=== PATIENT | female | born 1945 | race Caucasian/White ===

== ENCOUNTER → 2017-03-09 | Outpatient (CLI) | payer MEDICARE ==
--- NOTE | 2017-03-09 15:26 | US ---
EXAMINATION TYPE: US thyroid st tissue head/neck DATE OF EXAM: 03/09/2017 COMPARISON: NONE CLINICAL HISTORY: Hypothyroidism E03.9. long time thyroid rx ; recent MRI showed multinodular goiter GLAND SIZE: Right Lobe: 4.6 x 2.4 x 16.cm cm Overall Parenchyma: heterogenous Left Lobe: 4.5 x 2.4 x 1.9 cm Overall Parenchyma: heterogeneous Isthmus Thickness: 0.3 cm NODULES RIGHT: # of nodules measured on right: multinodular Largest nodule on right: 2.5 X 2.5 x 1.6 cm heterogeneous solid nodule at the lower pole. LEFT: # of nodules measured on left: multinodular Largest nodule on left: 2.1 X 1.6 x 1.8 cm complex cystic nodule at the lower pole. ISTHMUS: # of nodules measured in the isthmus: 0 Bilateral neck scanned, no evidence of lymphadenopathy. Thyroid gland is normal in size but markedly heterogeneous in appearance. There is dominant 2.[address]ic nodule with septations that is taller greater than wide the left thyroid lobe. There is poorly d efined 2.5 cm heterogeneous hyperechoic solid nodule in the right thyroid lobe. IMPRESSION: Heterogeneous thyroid with bilateral dominant nodules as noted above.
== END | disposition home or self-care (01) ==
LOC: RADUSWWP 14:49
PROVIDERS: ATTEND General Practice
DX: E04.2 Nontoxic multinodular goiter (principal); E03.9 Hypothyroidism, unspecified
CPT/HCPCS: 76536

== ENCOUNTER → 2017-03-15 | Outpatient (CLI) | payer MEDICARE ==
--- NOTE | 2017-03-15 22:31 | MR ---
EXAMINATION TYPE: MR brain wo con DATE OF EXAM: 03/15/2017 COMPARISON: NONE HISTORY: hyperreflexia and lt sided tremor per order. TECHNIQUE: Multiplanar, multisequence imaging of the brain and brainstem is performed without IV cont rast. FINDINGS: Diffusion weighted images demonstrate no evidence of a recent infarct or other diffusion abnormality. There is no worrisome extra-axial fluid collection. There is ventricular and sulcal prominence consis tent with diffuse cerebral atrophy. There are focal and confluent areas of T2 hyperintensity seen thr oughout the white matter bilaterally. Lesions are nonspecific in appearance and distribution but most likely on basis of product of chronic small vessel ischemic change in patient of this age. Midline structures demonstrate normal morphology. The craniocervical junction appears within normal limits. Normal vascular flow voids are present. Mild mucosal thickening involving ethmoid sinuses arlene aterally is present. Remainder paranasal sinuses are clear. Globes are intact bilaterally. IMPRESSION: Mild to moderate diffuse cerebral atrophy and moderate to severe chronic small vessel isc hemic change is present.
== END | disposition home or self-care (01) ==
LOC: RADMRIMAIN 12:25
PROVIDERS: ATTEND Psychiatry & Neurology Neurology
DX: I67.82 Cerebral ischemia (principal); G31.9 Degenerative disease of nervous system, unspecified
CPT/HCPCS: 70551

== ENCOUNTER → 2017-04-19 | Outpatient (CLI) | payer MEDICARE ==
--- NOTE | 2017-04-19 16:22 | US ---
EXAMINATION TYPE: US carotid duplex BILAT DATE OF EXAM: 04/19/2017 COMPARISON: NONE CLINICAL HISTORY: 71-year-old female I63.9 CVA. Multiple TIA's. TECHNIQUE: Carotid duplex ultrasound examination. Indirect Doppler criteria was utilized. FINDINGS: Ugalde scale images show no significant atherosclerotic change on either side. EXAM MEASUREMENTS: RIGHT: Peak Systolic Velocity (PSV) cm/sec ----- Right CCA: 88.3 ----- Right ICA: 91.7 ----- Right ECA: 126 ICA/CCA ratio: 1.0 RIGHT: End Diastole cm/sec ----- Right CCA: 17.7 ----- Right ICA: 16.3 ----- Right ECA: 18.9 LEFT: Peak Systolic Velocity (PSV) cm/sec ----- Left CCA: 88.2 ----- Left ICA: 86.4 ----- Left ECA: 84.0 ICA/CCA ratio: 0.9 LEFT: End Diastole cm/sec ----- Left CCA: 18.6 ----- Left ICA: 24.6 ----- Left ECA: 14.4 VERTEBRALS (direction of flow): Right Vertebral: Antegrade Left Vertebral: Antegrade IMPRESSION: No hemodynamically significant stenosis appreciated in either internal carotid artery. Criteria for Assigning % of Stenosis / Diameter reduction (Estimation based on the indirect measurements of the internal carotid artery velocities (ICA PSV). 1. Normal (no stenosis)=ICA PSV < 125 cm/s: ratio < 2.0: ICA EDV<40 cm/s. 2. Less than 50% stenosis=ICA PSV < 125 cm/s: ratio < 2.0: ICA EDV<40 cm/s. 3. 50 to 69% stenosis=ICA PSV of 125 to 230 cm/s: ration 2.0 ? 4.0: ICA EDV 40-100 cm/s. 4. Greater than 70% stenosis to near occlusion= ICA PSV > 230 cm/s: ratio > 4.0: ICA EDV > 100 cm/s. 5. Near occlusion= ICA PSV velocities may be low or undetectable: variable ratio and ICA EDV. 6. Total occlusion=unable to detect flow.
== END | disposition home or self-care (01) ==
LOC: RADUSWWP 15:01
PROVIDERS: ATTEND Psychiatry & Neurology Neurology
DX: I63.9 Cerebral infarction, unspecified (principal)
CPT/HCPCS: 93880

== ENCOUNTER → 2017-05-19 | Outpatient (CLI) | payer MEDICARE ==
[2017-05-23 07:34] LABS: Mis test requested (Blood) Phosphatidylsrin Abs
[2017-05-23 07:40] LABS: Mis test requested (Blood) Beta-1 Glycoprotein1
== END | disposition home or self-care (01) ==
LOC: LABWHC1 11:34
PROVIDERS: ATTEND Psychiatry & Neurology Neurology
DX: I63.9 Cerebral infarction, unspecified (principal)
CPT/HCPCS: 36415; 86146; 86148

== ENCOUNTER → 2017-10-05 | Outpatient (CLI) | payer MEDICARE ==
[2017-10-05 09:56] LABS: HCT 47.7 % (34.0-46.0); HGB 15.1 gm/dL (11.4-16.0); MCH 28.3 pg (25.0-35.0); MCHC 31.7 g/dL (31.0-37.0); MCV 89.5 fL (80.0-100.0); Mean Platelet Volume 6.8; Platelet Count 319 k/uL (150-450); RBC 5.33 m/uL (3.80-5.40); RDW 13.1 % (11.5-15.5); WBC 4.9 k/uL (3.8-10.6)
[2017-10-05 10:15] LABS: ALT 34 U/L (9-52); AST 24 U/L (14-36); Alkaline Phosphatase 69 U/L (38-126); Anion Gap 9 mmol/L; Blood Urea Nitrogen 16 mg/dL (7-17); Calcium 9.7 mg/dL (8.4-10.2); Carbon Dioxide 27 mmol/L (22-30); Chloride 106 mmol/L (98-107); Cholesterol 183 mg/dL (<200); Glucose 94 mg/dL (74-99); HDL Cholesterol 72 mg/dL (40-60); LDL Cholesterol,Calculated 95 mg/dL (0-99); Potassium 4.4 mmol/L (3.5-5.1); Sodium 142 mmol/L (137-145); Total Bilirubin 0.6 mg/dL (0.2-1.3); Total Protein 6.6 g/dL (6.3-8.2); Triglycerides 78 mg/dL (<150)
[2017-10-05 10:30] LABS: T4, Free (Free Thyroxine) 1.19 ng/dL (0.78-2.19)
== END | disposition home or self-care (01) ==
LOC: LABWHC1 09:24
PROVIDERS: ATTEND General Practice
DX: E03.9 Hypothyroidism, unspecified (principal); E78.5 Hyperlipidemia, unspecified; R52 Pain, unspecified
CPT/HCPCS: 36415; 80053; 80061; 84439; 84443; 85027

== ENCOUNTER → 2017-10-28 | Outpatient (CLI) | payer MEDICARE ==
--- NOTE | 2017-10-31 11:25 | MM ---
Reason for exam: screening (asymptomatic). Last mammogram was performed 1 year and 1 month ago. History: Patient is postmenopausal and is nulliparous. Family history of breast cancer in sister at age 62. Benign left mammotome panel of the left breast, November 24, 2007. Benign excisional biopsy of the right breast, 1977. Took hormonal contraceptives for 3 years. Took estrogen for 2 years beginning at age 49. Physical Findings: A clinical breast exam by your physician is recommended on an annual basis and results should be correlated with mammographic findings. MG 3D Screening Mammo W/Cad Bilateral CC and MLO view(s) were taken. Prior study comparison: September 21, 2016, bilateral MG diagnostic mammo w CAD PRADEEP. April 08, 2016, right breast MG 3d diag mammo w/cad RT. There are scattered fibroglandular densities. Stable benign calcifications. There is no discrete abnormality. No significant changes when compared with prior studies. ASSESSMENT: Benign, BI-RAD 2 RECOMMENDATION: Routine screening mammogram of both breasts in 1 year.
== END | disposition home or self-care (01) ==
LOC: RADMAMWWP 09:25
PROVIDERS: ATTEND General Practice
DX: Z12.31 Encounter for screening mammogram for malignant neoplasm of breast (principal)
CPT/HCPCS: 77063; 77067

== ENCOUNTER → 2018-04-05 | Outpatient (CLI) | payer MEDICARE ==
[2018-04-05 10:29] LABS: Carbon Dioxide 24 mmol/L (22-30); Chloride 107 mmol/L (98-107); Glucose 89 mg/dL (74-99); Potassium 4.8 mmol/L (3.5-5.1); Sodium 142 mmol/L (137-145)
[2018-04-05 10:30] LABS: ALT 33 U/L (9-52); AST 24 U/L (14-36); Albumin 4.1 g/dL (3.5-5.0); Alkaline Phosphatase 71 U/L (38-126); Anion Gap 11 mmol/L; Blood Urea Nitrogen 15 mg/dL (7-17); Calcium 9.3 mg/dL (8.4-10.2); Cholesterol 213 mg/dL (<200); HDL Cholesterol 77 mg/dL (40-60); LDL Cholesterol,Calculated 117 mg/dL (0-99); Total Bilirubin 0.4 mg/dL (0.2-1.3); Total Protein 6.6 g/dL (6.3-8.2); Triglycerides 95 mg/dL (<150)
== END | disposition home or self-care (01) ==
LOC: LABWHC1 09:46
PROVIDERS: ATTEND General Practice
DX: E78.5 Hyperlipidemia, unspecified (principal)
CPT/HCPCS: 36415; 80053; 80061

== ENCOUNTER → 2018-09-29 | Outpatient (CLI) | payer MEDICARE ==
[2018-09-29 13:19] LABS: HCT 46.6 % (34.0-46.0); HGB 15.3 gm/dL (11.4-16.0); MCH 29.1 pg (25.0-35.0); MCHC 32.9 g/dL (31.0-37.0); MCV 88.5 fL (80.0-100.0); Mean Platelet Volume 6.3; Platelet Count 345 k/uL (150-450); RBC 5.26 m/uL (3.80-5.40); RDW 12.6 % (11.5-15.5); WBC 7.2 k/uL (3.8-10.6)
[2018-09-29 18:58] LABS: T4, Free (Free Thyroxine) 1.5 ng/dL (0.80-1.80)
[2018-09-29 19:17] LABS: Albumin 4.3 g/dL (3.80-4.90); Albumin/Globulin Ratio 2.39 (1.20-2.10); Anion Gap 8.2 mmol/L (4.00-12.00); Calcium 9.1 mg/dL (8.7-10.3); Carbon Dioxide 27.8 mmol/L (21.6-31.8); Globulin 1.8 g/dL (1.6-3.3); Potassium 4.7 mmol/L (3.5-5.5); Total Bilirubin 0.4 mg/dL (0.3-1.2); Total Protein 6.1 g/dL (6.2-8.2)
== END | disposition home or self-care (01) ==
LOC: LABWHC1 12:31
PROVIDERS: ATTEND Family Medicine
DX: E03.9 Hypothyroidism, unspecified (principal); E78.5 Hyperlipidemia, unspecified; E55.9 Vitamin D deficiency, unspecified; M19.90 Unspecified osteoarthritis, unspecified site
CPT/HCPCS: 36415; 80053; 82306; 82550; 83735; 84439; 84443; 85027

== ENCOUNTER → 2018-09-29 | Outpatient (CLI) | payer MEDICARE ==
--- NOTE | 2018-09-29 12:38 | US ---
EXAMINATION TYPE: US thyroid st tissue head/neck DATE OF EXAM: 09/29/2018 COMPARISON: US03/09/2017 CLINICAL HISTORY: E04.2 Nontoxic multinodular goiter. GLAND SIZE: Right Lobe: 5.4 x 2.8 x 2.2 cm Overall Parenchyma: heterogenous Left Lobe: 5.5 x 2.6 x 2.2 cm Overall Parenchyma: heterogeneous Isthmus Thickness: 0.3 cm NODULES RIGHT: # of nodules measured on right: 1 1. 2.6 X 2.1 x 1.9 cm echogenic solid nodule at the mid pole with poorly defined margins; . This n odule is wider than tall and shows intranodular vascularity. Prior size: 2.5 x 2.5 x 1.6 cm LEFT: # of nodules measured on left: 1 1. 1.8 X 1.7 x 1.9 cm hypoechoic mixed nodule at the mid pole with well-defined margins; . This no dule is wider than tall and shows intranodular vascularity. Prior size: 2.1 x 1.6 x 1.8 cm ISTHMUS: # of nodules measured in the isthmus: 0 Diffusely heterogeneous thyroid gland bilaterally. Bilateral neck scanned, no evidence of lymphadeno dilcia. IMPRESSION: Diffuse glandular heterogeneity. Thyroid nodularity is noted nonspecific.
== END | disposition home or self-care (01) ==
LOC: RADUSWWP 12:09
PROVIDERS: ATTEND Internal Medicine Endocrinology, Diabetes & Metabolism
DX: E04.2 Nontoxic multinodular goiter (principal)
CPT/HCPCS: 76536

== ENCOUNTER → 2018-10-05 | Outpatient (CLI) | payer MEDICARE ==
[2018-10-05 16:40] LABS: LDL Cholesterol,Calculated 108.2 mg/dL (0.0-131.0); VLDL Calculation 15.8 mg/dL (5.00-40.00)
== END | disposition home or self-care (01) ==
LOC: LABWHC1 09:15
PROVIDERS: ATTEND Family Medicine
DX: E03.9 Hypothyroidism, unspecified (principal); E78.5 Hyperlipidemia, unspecified; E55.9 Vitamin D deficiency, unspecified; M12.9 Arthropathy, unspecified
CPT/HCPCS: 36415; 80061

== ENCOUNTER → 2018-11-24 | Outpatient (CLI) | payer MEDICARE ==
--- NOTE | 2018-11-27 11:29 | MM ---
Reason for exam: screening (asymptomatic). Last mammogram was performed 1 year and 1 month ago. History: Patient is postmenopausal and is nulliparous. Family history of breast cancer in sister at age 62. Benign left mammotome panel of the left breast, November 24, 2007. Benign excisional biopsy of the right breast, 1977. Took hormonal contraceptives for 3 years. Took estrogen for 2 years beginning at age 49. Physical Findings: A clinical breast exam by your physician is recommended on an annual basis and results should be correlated with mammographic findings. MG 3D Screening Mammo W/Cad Bilateral CC and MLO view(s) were taken. Prior study comparison: October 28, 2017, bilateral MG 3d screening mammo w/cad. September 21, 2016, bilateral MG diagnostic mammo w CAD PRADEEP. The breast tissue is heterogeneously dense. This may lower the sensitivity of mammography. Benign appearing bilateral calcifications. No suspicious abnormality. Left biopsy marker noted. No significant changes when compared with prior studies. ASSESSMENT: Benign, BI-RAD 2 RECOMMENDATION: Routine screening mammogram of both breasts in 1 year.
== END ==
LOC: RADMAMWWP 09:21
PROVIDERS: ATTEND General Practice
DX: Z12.31 Encounter for screening mammogram for malignant neoplasm of breast (principal)
CPT/HCPCS: 77063; 77067

== ENCOUNTER → 2019-01-05 | Outpatient (CLI) | payer MEDICARE ==
[2019-01-05 14:34] LABS: Basophils % (A) 0 %; Eosinophils # (A) 0.3 k/uL (0-0.7); Eosinophils % (A) 3 %; HCT 46.4 % (34.0-46.0); HGB 14.7 gm/dL (11.4-16.0); Lymphocytes # (A) 2.2 k/uL (1.0-4.8); Lymphocytes % (A) 20 %; MCH 28.3 pg (25.0-35.0); MCHC 31.7 g/dL (31.0-37.0); MCV 89.3 fL (80.0-100.0); Mean Platelet Volume 6.4; Monocytes # (A) 0.5 k/uL (0-1.0); Monocytes % (A) 4 %; Neutrophils # (A) 7.7 k/uL (1.3-7.7); Neutrophils % (A) 71 %; Platelet Count 334 k/uL (150-450); RDW 12.4 % (11.5-15.5); WBC 10.8 k/uL (3.8-10.6)
[2019-01-05 14:43] LABS: INR 0.9 (<1.2); Partial Thromboplastin Time 25.3 sec (22.0-30.0); Prothrombin Time 9.9 sec (9.0-12.0)
[2019-01-05 14:45] LABS: ALT 17 U/L (9-52); AST 24 U/L (14-36); Alkaline Phosphatase 77 U/L (38-126); Anion Gap 7 mmol/L; Blood Urea Nitrogen 18 mg/dL (7-17); Calcium 9.7 mg/dL (8.4-10.2); Carbon Dioxide 25 mmol/L (22-30); Chloride 107 mmol/L (98-107); Glucose 116 mg/dL (74-99); Potassium 4.3 mmol/L (3.5-5.1); Sodium 139 mmol/L (137-145); Total Bilirubin 0.3 mg/dL (0.2-1.3); Total Protein 6.7 g/dL (6.3-8.2)
== END | disposition home or self-care (01) ==
LOC: LABPAT 13:56
PROVIDERS: ATTEND Orthopaedic Surgery
DX: Z01.812 Encounter for preprocedural laboratory examination (principal)
CPT/HCPCS: 80053; 85025; 85610; 85730; 87070

== ENCOUNTER 2019-01-09 07:52 | Inpatient (IN) | payer MEDICARE ==
[~2019-01-09 07:52] MED LIST: ACETAMINOPHEN TAB 500 MG TAB PO ONE; DEXAMETHASONE SOD PHOSPHATE 10 MG/ML 1 ML VIAL IV ONE; HYDROmorphone 0.5 MG/0.5 ML SYRINGE IVP PRN; MELOXICAM 7.5 MG TAB PO ONE; MORPHINE SULFATE 4 MG/ML SYRINGE IV PRN; ONDANSETRON 4 MG/2 ML VIAL IVP ONE; ONDANSETRON 4 MG/2 ML VIAL IVP PRN; ROPIVACAINE 246.25 MG, EPINEPHrine 0.5 MG, KETOROLAC 30 MG, cloNIDine HCL/PF 80 MCG, WA... MISCELLANE ONE; TRANEXAMIC ACID 1,000 MG in SODIUM CHLORIDE 0.9% 100 ML IVPB ONE; ceFAZolin IN SWFI 2 GM/20 ML SYRINGE IVP ONE
[2019-01-09] MEDS ORDERED: LIDOCAINE 1% 20 ML VIAL (10MG/ML) FOR IV START INTRADERMA ONE (08:21)
[2019-01-09] MEDS: LACTATED RINGERS 1,000 ML IV SCH ×2 (08:23→21:26)
[2019-01-09] MEDS ORDERED: ACETAMINOPHEN IV (For NPO) 1,000 MG/100 ML VIAL IVPB ONE (08:25)
[2019-01-09] MEDS ORDERED: HYDROmorphone 0.5 MG/0.5 ML SYRINGE IVP PRN ×3 (09:08)
[2019-01-09] MEDS ORDERED: NALOXONE 0.4 MG/ML 1 ML VIAL IV PRN (09:08)
[2019-01-09] MEDS ORDERED: ONDANSETRON 4 MG/2 ML VIAL IVP PRN (09:08)
[2019-01-09] MEDS ORDERED: MAGNESIUM HYDROXIDE 2,400 MG/10 ML CUP PO PRN (09:08)
[2019-01-09] MEDS ORDERED: DIAZEPAM 5 MG TAB PO PRN (09:08)
[2019-01-09] MEDS ORDERED: hydrOXYzine PAMOATE 25 MG CAP PO PRN (09:08)
[2019-01-09] MEDS ORDERED: HYDROcodone/APAP 5-325MG 1 EACH TAB PO PRN ×2 (09:08)
[2019-01-09] MEDS ORDERED: TRANEXAMIC ACID 1,000 MG/10 ML VIAL ONE (09:38)
[2019-01-09] MEDS ORDERED: fentaNYL (PF) 50 MCG/ML 2 ML AMP ONE (09:38)
[2019-01-09] MEDS ORDERED: LACTATED RINGERS 1,000 ML BAG IV ONE (09:38)
[2019-01-09] MEDS ORDERED: HEPARIN SODIUM,PORCINE 10,000 UNIT/ML 1 ML VIAL ONE (09:38)
[2019-01-09] MEDS ORDERED: PHENYLEPHRINE-0.9% NACL SYG 1 MG/10 ML SYRINGE ONE (09:38)
[2019-01-09] MEDS ORDERED: MIDAZOLAM 2 MG/2 ML VIAL ONE (09:38)
[2019-01-09] MEDS ORDERED: SODIUM CHLORIDE 0.9% 100 ML BAG ONE (09:38)
[2019-01-09] MEDS ORDERED: ceFAZolin 3,000 MG in SODIUM CHLORIDE 0.9% IRRIGATIO 3,000 ML IRRIGATION ONE (09:43)
--- NOTE | 2019-01-09 11:09 | FL ---
EXAMINATION TYPE: FL guidance operating room DATE OF EXAM: 01/09/2019 HISTORY: Flouroscopy time 42 seconds of fluoroscopy provided. IMPRESSION: 1. Fluoroscopy time.
--- NOTE | 2019-01-09 11:09 | XR ---
EXAMINATION TYPE: XR Hip Limited RT DATE OF EXAM: 01/09/2019 COMPARISON: NONE HISTORY: Postop TECHNIQUE: One view submitted. FINDINGS: There is postsurgical change in near anatomic alignment. There is soft tissue edema and emphysema. IMPRESSION: 1. Postoperative change. Appears in near-anatomic alignment.
--- NOTE | 2019-01-09 11:15 | P.OP ---
Date of Procedure: 01/09/19 Preoperative Diagnosis: Severe osteoarthritis right hip Postoperative Diagnosis: Severe osteoarthritis right hip Procedure(s) Performed: Right total hip arthroplasty with a direct anterior approach Implants: [employer]ales [employer] nephew Polarstem size 3 standard [employer] R3, 3 hole acetabular shell, 48 mm [employer] reflection 6.5 mm cancellus screw, 20 mm 2 [employer] R3, XLPE 20 acetabular liner [employer]hew Oxinium femoral head 32 m, +4 All components were press-fit. The articulation is Oxinium on polyethylene. Anesthesia: spinal Surgeon: Tommy Cummings Commercial Loan Coordinator #1: Judy Melvin Estimated Blood Loss (ml): 150 (59 mL returned with Cell Saver) Pathology: other (Femoral head) Condition: stable Disposition: PACU Indications for Procedure: After failure of conservative treatment we discussed the surgical and nonsurgical treatment options at length. Patient wishes to proceed with a total hip arthroplasty with a direct anterior approach. Complications specific to this procedure were discussed at length, including but not limited to infection, leg length discrepancy, dislocation, and nerve injury. Patient is aware of all these complications and informed consent was obtained Operative Findings: The operative findings are consistent with severe osteoarthritis of the right hip Description of Procedure: Patient was seen and evaluated in the preoperative area, consent was reviewed, and the surgical site was marked with a skin marker. Patient was then brought to the operating room and given prophylactic antibiotics intravenously. 1 g of Tranexamic acid was also given. A spinal anesthetic was administered by the anesthesia department. The patient was then placed on the [place] table with the bony prominences well-padded. The hip area was then prepped and draped in usual sterile fashion. A universal timeout was then performed, which confirmed the patient's name, surgical site, ALLERGIES, and procedure being performed. Next the incision site was located at 1 cm distal and 1 cm lateral to the anterior superior iliac spine. The skin and subcutaneous tissues were sharply incised. Incision was carefully dissected down to the fascia overlying the tensor fascia franki muscle. This fascia was then incised in line with the incision. Next, using blunt finger dissection, the tensor fascia franki muscle was dissected off its investing fascia. The muscle was then carefully retracted laterally with a cobra retractor over the lateral neck of the femur. Next, the circumflex vessels were identified and cauterized using the AquaMantis device. The anterior hip capsule was then exposed. The capsule was then opened and an inverted T fashion. Cobra retractors were then placed intracapsularly. The proximal femur was then visualized. The femoral neck was then osteotomized appropriate level above the lesser trochanter. Small amount of traction was placed with the [place] table. A small wedge of bone was then removed from the remaining femoral head. Next, using a corkscrew femoral head was easily removed from the acetabulum. On gross visual inspection, the femoral head had complete loss of articular cartilage in mu ltiple periarticular osteophytes. Attention was then turned to the acetabulum. the acetabulum was exposed and any remaining labrum was excised. Sequential reaming of the acetabulum was performed using fluoroscopic guidance. When the appropriate size was reached, a trial was then placed. The position and fit of the trial was checked with fluoroscopy. The trial was then removed. Then, using fluoroscopic guidance, the final implant was impacted at 20 of anteversion and 40 of abduction, and fully seated in the acetabulum. 2 screws were then placed in the acetabulum. Again fluoroscopy was used to check position of the screws. Next, the liner was then impacted, with a 20 elevated liner located in the anterior superior quadrant. Component locking was confirmed. Attention was then directed to the femur. With the aid of the [place] table, the femur was externally rotated to approximately 130, extended, and abducted under the opposite leg. A side hook was then placed under the proximal femur, and the side hook elevator was used to elevate the proximal femur. Retractors were then placed. A capsular release was performed, as well as a release of the conjoined tendon, which afforded excellent visualization of the proximal femur. Next, a box osteotome was used to lateralize the proximal femur. A woodworking shop hand was then used to locate the femoral canal. Sequential broaching was then performed with appropriate size which afforded excellent fixation in the proximal femur. A trial was then placed with appropriate head and neck, and the hip was gently reduced with the aid of the [place] table. Fluoroscopy was then used to check position of the components, as well as to ensure equal leg lengths. The hip was then gently dislocated and the trials were then removed. Final implants were then impacted and the hip was again reduced. Final fluoroscopic x-rays confirmed that the components were in anatomic position, as well as equal leg lengths. The hip was also taken through range of motion, and found to be stable. The hip was then copiously irrigated with antibiotic solution with pulsatile lavage. The hip was then irrigated with Irrisept solution. The soft tissues were then injected with a ropivacaine solution, which consisted of 246.25 mg of ropivacaine, 0.5 mg of epinephrine, 30 mg of Toradol, 80 g of clonidine, and 48.45 mL of sterile water, for a total of 100 mL of fluid injected. A second dose of 1 g of Tranexamic acid was also given. the fascia was then closed with 2-0 strata fix suture. The subcutaneous tissue was closed with 3-0 Vicryl. The subcuticular tissue was closed with 3-0 strata fix suture. The skin was then closed with Dermabond glue and a sterile silver dressing. The patient was then transferred to the recovery room in stable co ndition. The assistant professor of education KAITLIN Billings was required due to the complexity of surgery, and the need for skilled surgical corsetier for positioning, draping, exposure, retraction, and closure of the wound.
[2019-01-09] MEDS ORDERED: LACTATED RINGERS 1,000 ML IV ONE ×2 (11:45)
[2019-01-09 13:03] VITALS: BMI 32.9
[2019-01-09] MEDS: CARBIDOPA-LEVODOPA 25-100 MG 1 EACH TAB PO SCH ×3 (13:21→21:26)
--- NOTE | 2019-01-09 14:00 | P.CONS ---
History of Present Illness - Reason for Consult Consult date: 01/09/19 Medical management - History of Present Illness This is a 73-year-old female patient of Dr. Michael Moreau with past medical history of hyperlipidemia, generalized osteoarthritis, hypothyroidism, Parkinson's. Patient has been brought into the hospital under the care of Dr. Cummings status post right total hip arthroplasty with direct anterior approach. The patient has had a regular diet for lunch. She denies any nausea or vomiting. No chest pain or shortness of breath. Vital signs are stable, no lightheadedness or dizziness. Patient did not require Whiteside catheter placement. Patient is anticipating discharge home tomorrow. Review of Systems All systems: negative Constitutional: Reports night sweats, Denies anorexia, Denies chills, Denies fatigue, Denies fever, Denies poor appetite, Denies weight loss Eyes: denies blurred vision, denies pain Ears, nose, mouth and throat: Denies dysphagia, Denies headache, Denies nasal congestion, Denies nasal discharge, Denies sore throat, Denies vertigo Cardiovascular: Denies chest pain, Denies decreased exercise tolerance, Denies dyspnea on exertion, Denies leg edema, Denies palpitations, Denies shortness of breath, Denies syncope Respiratory: Denies cough Gastrointestinal: Denies abdominal pain, Denies diarrhea, Denies loss of appetite, Denies nausea, Denies vomiting Genitourinary: Denies dysuria, Denies hematuria Musculoskeletal: Denies frequent falls, Denies gait dysfunction, Denies myalgias Integumentary: Reports wounds, Denies pruritus, Denies rash Neurological: Denies aphasia, Denies convulsions, Denies numbness, Denies seizures, Denies vertigo, Denies weakness Psychiatric: Denies anxiety, Denies depression Endocrine: Denies fatigue, Denies weight change Past Medical History Past Medical History: Hyperlipidemia, Neurologic Disorder, Osteoarthritis (OA), Thyroid Disorder Additional Past Medical History / Comment(s): Parkinson's disease-left hand tremor History of Any Multi-Drug Resistant Organisms: None Reported Past Surgical History: Joint Replacement, Orthopedic Surgery, Tubal Ligation Additional Past Surgical History / Comment(s): left hip replaced, right total hip arthroplasty anterior approach 01/09/2019, deviated septum repaired, right CTS Past Anesthesia/Blood Transfusion Reactions: No Reported Reaction Past Psychological History: No Psychological Hx Reported Smoking Status: Former smoker Past Alcohol Use History: None Reported Additional Past Alcohol Use History / Comment(s): quit smoking 1974, smoked 10- 15 years <ppd Past Drug Use History: None Reported Additional Drug Use History / Comment(s): The patient was a smoker for only about 10-15 years less than a pack per day and quit in 1974. She denies any marijuana, street drug or alcohol use. She lives at home with her . - Past Family History Sister(s) Family Medical History: Cancer Additional Family Medical History / Comment(s): Sister. is alive at age 84 and is a survivor of breast cancer. Mother Family Medical History: Cancer, Deep Vein Thrombosis (DVT), Pulmonary Embolus Additional Family Medical History / Comment(s): Mother at age 82 from uterine cancer with metastatic disease to the lungs. Brother(s) Additional Family Medical History / Comment(s): Patient has one brother age 80 with fibromyalgia, osteoarthritis and macular degeneration. Patient does not have any children. Medications and Allergies Home Medications Medication Instructions Recorded Confirmed Type Carbidopa-Levodopa 25-100 mg 1 each PO 1000 01/04/19 01/09/19 History [Sinemet 25-100] Carbidopa/Levodopa [Sinemet 25-100 0.5 tab PO 1600,2200 01/04/19 01/09/19 History mg] Cholecalciferol [Vitamin D3] 1,000 unit PO DAILY 01/04/19 01/09/19 History Levothyroxine Sodium [Synthroid] 50 mcg PO DAILY 01/04/19 01/09/19 History Rasagiline Mesylate [Azilect] 1 mg PO 2200 01/04/19 01/09/19 History Rosuvastatin Calcium [Crestor] 5 mg PO DAILY 01/04/19 01/09/19 History Allergies Allergy/AdvReac Type Severity Reaction Status Date / Time cheese Allergy Abdominal Verified 01/09/19 12:36 Pain Physical Exam Vitals: Vital Signs Temp Pulse Pulse Resp BP Pulse Ox 01/09/19 12:00 79 16 124/60 96 01/09/19 11:45 77 16 129/59 97 01/09/19 11:31 72 12 119/57 96 01/09/19 11:26 97 F L 75 12 128/62 96 01/09/19 08:13 97.6 F 72 16 157/72 96 Intake and Output 01/08/19 01/09/19 01/09/19 22:59 06:59 14:59 Intake Total 1101 Output Total 150 Balance 951 Intake: IV 1101 Output: Estimated Blood Loss 150 Gen: This is a 73-year-old female. She is found resting in bed and appears to be comfortable and in no acute distress. is at bedside. HEENT: Head is atraumatic, normocephalic. Pupils equal, round. Sclerae is anicteric. NECK: Supple. No JVD. No lymphadenopathy. No thyromegaly. LUNGS: Clear to auscultation. No wheezes or rhonchi. No intercostal retractions. HEART: Regular rate and rhythm. No murmur. ABDOMEN: Soft. Bowel sounds are present. No masses. No tenderness. EXTREMITIES: No pedal edema. No calf tenderness. Small dressing in place to the right anterior hip with no breakthrough bleeding or drainage. NEUROLOGICAL: Patient is awake, alert and oriented x3. Cranial nerves 2 through 12 are grossly intact. Assessment and Plan Plan: 1. Osteoarthritis status post right total hip arthroplasty anterior approach. Continue current pain management, PT and OT per orthopedics. Continue aspirin 325 mg twice daily for DVT prophylaxis. Incentive cytometry treated with incidence of atelectasis and hospital acquired pneumonia. 2. Parkinson's. Patient will be resumed on her home dose of Sinemet and Azilect from home. 3. Hypothyroidism. Continue levothyroxine 50 mg daily. 4. GI prophylaxis. Pepcid. Discharge plan: Most likely home tomorrow with home care Impression and plan of care have been directed as dictated by the signing physician. Althea Dumont nurse practitioner acting as scribe for signing physician.
[2019-01-09] MEDS: ceFAZolin IN SWFI 2 GM/20 ML SYRINGE IVP SCH (18:02)
[2019-01-09] MEDS ORDERED: SENNOSIDES-DOCUSATE SODIUM 1 EACH TAB PO SCH (21:00)
[2019-01-09] MEDS: SODIUM CHLORIDE 0.9% 1,000 ML IV SCH (21:25)
[2019-01-09] MEDS: ASPIRIN 325 MG TAB PO SCH (21:26)
[2019-01-10] MEDS: SODIUM CHLORIDE 0.9% 1,000 ML IV SCH (01:36)
[2019-01-10] MEDS: ceFAZolin IN SWFI 2 GM/20 ML SYRINGE IVP SCH (01:38)
[2019-01-10] MEDS ORDERED: LEVOTHYROXINE 50 MCG TAB PO SCH (06:30)
[2019-01-10] MEDS: ASPIRIN 325 MG TAB PO SCH (07:17)
[2019-01-10] MEDS ORDERED: traMADol 50 MG TAB PO PRN ×2 (07:24)
[2019-01-10 07:28] VITALS: BP 130/80; PULSE 81; RESP 16; TEMP 97.9
[2019-01-10 07:37] LABS: Basophils % (A) 0 %; Eosinophils # (A) 0.1 k/uL (0-0.7); Eosinophils % (A) 1 %; HCT 38.7 % (34.0-46.0); HGB 12.3 gm/dL (11.4-16.0); Lymphocytes % (A) 21 %; MCH 28.3 pg (25.0-35.0); MCHC 31.8 g/dL (31.0-37.0); MCV 88.9 fL (80.0-100.0); Mean Platelet Volume 6.5; Monocytes # (A) 0.6 k/uL (0-1.0); Monocytes % (A) 7 %; Neutrophils # (A) 6.6 k/uL (1.3-7.7); Neutrophils % (A) 69 %; Platelet Count 316 k/uL (150-450); RBC 4.35 m/uL (3.80-5.40); RDW 12.6 % (11.5-15.5); WBC 9.6 k/uL (3.8-10.6)
--- NOTE | 2019-01-10 08:51 | P.DS ---
Providers Date of admission: 01/09/19 07:52 Expected date of discharge: 01/10/19 Attending physician: Tommy Cummings Consults: 01/09/19 12:44 Consult Physician Routine Consulting Provider: Smith Lemus Consult Reason/Comments: medical management Do you want consulting provider notified?: Yes Primary care physician: Lucas Moreau - Discharge Diagnosis(es) (1) Osteoarthritis of right hip Current Visit: Yes Status: Acute (2) S/P total hip arthroplasty Current Visit: Yes Status: Acute (3) Hyperlipidemia Current Visit: Yes Status: Acute (4) Hypothyroidism Current Visit: Yes Status: Acute (5) Parkinsonism Current Visit: Yes Status: Acute (6) Vitamin D deficiency Current Visit: Yes Status: Acute Hospital Course: This is a 73-year-old female with known history of degenerative arthritis of the right hip. The patient presents for evaluation. After discussion and consideration patient elects to proceed with total hip arthroplasty. The patient is seen preoperatively by Dr. Cummings and medically cleared for surgery by their primary care physician. Patient is admitted to [facility] on 01/09/2019 for total hip arthroplasty. The procedures performed without complication or sequelae. The patient is doing well postoperatively. Labs and vital signs are stable on day of discharge. On day of discharge patient's hip incision is healing well. There is minimal erythema. There is no drainage noted at this time. There is minimal soft tissue swelling to the hip and thigh. Patient has full foot and ankle motion without difficulty or pain. Calf is soft and nontender to palpation. Neurovascular status to the right lower extremity is intact. Patient is discharged home in good condition. Opioid start talking form is reviewed and signed at patient bedside. Please see med rec for accurate list of home medications. Plan - Discharge Summary Discharge Rx Participant: No New Discharge Prescriptions: New Aspirin 325 mg PO BID #60 tab Sennosides [Senokot] 1 tab PO BID #60 tablet traMADol HCl [Ultram] 1 - 2 tab PO Q6H PRN #56 tab PRN Reason: Pain No Action Levothyroxine Sodium [Synthroid] 50 mcg PO DAILY Cholecalciferol [Vitamin D3] 1,000 unit PO DAILY Carbidopa/Levodopa [Sinemet 25-100 mg] 0.5 tab PO 1600,2200 Carbidopa-Levodopa 25-100 mg [Sinemet 25-100] 1 each PO 1000 Rosuvastatin Calcium [Crestor] 5 mg PO DAILY Rasagiline Mesylate [Azilect] 1 mg PO 2200 Discharge Medication List Carbidopa-Levodopa 25-100 mg [Sinemet 25-100] 1 each PO 1000 01/04/19 [History] Carbidopa/Levodopa [Sinemet 25-100 mg] 0.5 tab PO 1600,2200 01/04/19 [History] Cholecalciferol [Vitamin D3] 1,000 unit PO DAILY 01/04/19 [History] Levothyroxine Sodium [Synthroid] 50 mcg PO DAILY 01/04/19 [History] Rasagiline Mesylate [Azilect] 1 mg PO 2200 01/04/19 [History] Rosuvastatin Calcium [Crestor] 5 mg PO DAILY 01/04/19 [History] Aspirin 325 mg PO BID #60 tab 01/10/19 [Rx] Sennosides [Senokot] 1 tab PO BID #60 tablet 01/10/19 [Rx] traMADol HCl [Ultram] 1 - 2 tab PO Q6H PRN #56 tab 01/10/19 [Rx] Follow up Appointment(s)/Referral(s): Tommy Cummings DO [Doctor of Osteopathic Medicine] - 2 Weeks Activity/Diet/Wound Care/Special Instructions: Weightbearing as tolerated with walker. Leave dressing intact. Dressing may be removed by home care nurse or by patient in 10 days. May shower with dressing on. Please follow-up with [facility] in 2 weeks and call with any questions or concerns, . Discharge Disposition: HOME WITH HOME HEALTH SERVICES
[2019-01-10] MEDS ORDERED: ATORVASTATIN 10 MG TAB PO SCH (09:00)
[2019-01-10] MEDS ORDERED: FAMOTIDINE 20 MG TAB PO SCH (09:00)
[2019-01-10] MEDS ORDERED: MELOXICAM 7.5 MG TAB PO SCH (09:00)
[2019-01-10] MEDS: CARBIDOPA-LEVODOPA 25-100 MG 1 EACH TAB PO SCH (09:17)
[2019-01-10] MEDS ORDERED: CARBIDOPA-LEVODOPA 25-100 MG 1 EACH TAB PO SCH (10:00)
--- NOTE | 2019-01-10 12:13 | P.PN ---
Subjective Progress Note Date: 01/10/19 This is a 73-year-old female patient of Dr. Michael Moreau with past medical history of hyperlipidemia, generalized osteoarthritis, hypothyroidism, Parkinson's. Patient has been brought into the hospital under the care of Dr. Cummings status post right total hip arthroplasty with direct anterior approach. The patient has had a regular diet for lunch. She denies any nausea or vomiting. No chest pain or shortness of breath. Vital signs are stable, no lightheadedness or dizziness. Patient did not require Whiteside catheter placement. Patient is anticipating discharge home tomorrow. 01/10: Patient states that she was unable to get any sleep last night. Pain is currently controlled. She denies having a bowel movement but is passing gas and urinating without difficulty. Patient is scheduled for discharge home today. She has been afebrile, blood pressure 130/80, heart rate 80s, pulse ox 99% on room air. WBC 9.6 and hemoglobin 12.3. Medication reconciliation is been reviewed. Review of Systems Constitutional: Reports night sweats, Denies anorexia, Denies chills, Denies fatigue, Denies fever, Denies poor appetite, Denies weight loss Eyes: denies blurred vision, denies pain Ears, nose, mouth and throat: Denies dysphagia, Denies headache, Denies nasal congestion, Denies nasal discharge, Denies sore throat, Denies vertigo Cardiovascular: Denies chest pain, Denies decreased exercise tolerance, Denies dyspnea on exertion, Denies leg edema, Denies palpitations, Denies shortness of breath, Denies syncope Respiratory: Denies cough Gastrointestinal: Denies abdominal pain, Denies diarrhea, Denies loss of appetite, Denies nausea, Denies vomiting Genitourinary: Denies dysuria, Denies hematuria Musculoskeletal: Denies frequent falls, Denies gait dysfunction, Denies myalgias Integumentary: Reports wounds, Denies pruritus, Denies rash Neurological: Denies aphasia, Denies convulsions, Denies numbness, Denies seizur es, Denies vertigo, Denies weakness Psychiatric: Denies anxiety, Denies depression Endocrine: Denies fatigue, Denies weight change Objective - Vital Signs Vital signs: Vital Signs Temp 97.9 F 01/10/19 07:00 Pulse 81 01/10/19 07:00 Resp 16 01/10/19 07:00 BP 130/80 01/10/19 07:00 Pulse Ox 99 01/10/19 07:00 Intake & Output 01/09/19 01/10/19 01/10/19 18:59 06:59 18:59 Intake Total 1101 Output Total 150 Balance 951 Intake: IV 1101 Output: Estimated Blood Loss 150 Other: Voiding Method Toilet # Voids 1 1 - Exam Gen: This is a 73-year-old female. She is found resting in a recliner and appears to be comfortable and in no acute distress. is at bedside. HEENT: Head is atraumatic, normocephalic. Pupils equal, round. Sclerae is anicteric. NECK: Supple. No JVD. No lymphadenopathy. No thyromegaly. LUNGS: Clear to auscultation. No wheezes or rhonchi. No intercostal retractions. HEART: Regular rate and rhythm. No murmur. ABDOMEN: Soft. Bowel sounds are present. No masses. No tenderness. EXTREMITIES: No pedal edema. No calf tenderness. Small dressing in place to the right anterior hip with no breakthrough bleeding or drainage. NEUROLOGICAL: Patient is awake, alert and oriented x3. Cranial nerves 2 through 12 are grossly intact. - Labs CBC & Chem 7: 01/10/19 07:19 Assessment and Plan Plan: 1. Osteoarthritis status post right total hip arthroplasty anterior approach. Continue current pain management, PT and OT per orthopedics. Continue aspirin 325 mg twice daily for DVT prophylaxis. Incentive spirometry treated with incidence of atelectasis and hospital acquired pneumonia. 2. Parkinson's. Patient will be resumed on her home dose of Sinemet and Azilect from home. 3. Hypothyroidism. Continue levothyroxine 50 mg daily. 4. GI prophylaxis. Pepcid. Discharge plan: home today with [facility] Impression and plan of care have been directed as dictated by the signing physician. Althea Dumont nurse practitioner acting as scribe for signing physician.
== END 2019-01-10 11:44 | disposition home health service (06) | DRG 470 ==
LOC: 2ORMAIN 07:52 → 4SSUR 11:34
PROVIDERS: ADMIT Orthopaedic Surgery; ATTEND Orthopaedic Surgery
PROC: 0SR906A Replacement of Right Hip Joint with Oxidized Zirconium on Polyethylene Synthetic Substitute, Uncemented, Open Approach (ICD-10-PCS; principal; 2019-01-09 09:20)
DX: M16.11 Unilateral primary osteoarthritis, right hip (principal); G20 Parkinson's disease; E78.5 Hyperlipidemia, unspecified; E03.9 Hypothyroidism, unspecified; E55.9 Vitamin D deficiency, unspecified; Z79.890 Hormone replacement therapy; Z79.899 Other long term (current) drug therapy; Z96.642 Presence of left artificial hip joint; Z87.891 Personal history of nicotine dependence; Z91.011 Allergy to milk products; Z80.3 Family history of malignant neoplasm of breast; Z80.49 Family history of malignant neoplasm of other genital organs; Z82.49 Family history of ischemic heart disease and other diseases of the circulatory system
CPT/HCPCS: 36415; 73501; 85025; 86850; 86891; 86900; 86901; 88300

== ENCOUNTER → 2019-03-22 | Outpatient (CLI) | payer MEDICARE ==
--- NOTE | 2019-03-22 10:07 | BD ---
EXAMINATION TYPE: Axial Bone Density DATE OF EXAM: 03/22/2019 COMPARISON: 08.01.2013 CLINICAL HISTORY: 73 YR OLD FEMALE....ICD-10 CODE: Z78.0 POST MENOPAUSAL Height: 63 Weight: 184 FRAX RISK QUESTIONS: NOTHING TO NOTE HERE RISK FACTORS HISTORY OF: Surgery to Spine BOTH HIPS ARE THRs When: 2018 Postmenopausal woman: YES AT 49 YRS OLD Take estrogen and/or progesterone medications: IN THE PAST FOR COUPLE YRS Lost more than 2 inches in height since high school: YES MEDICATIONS: Thyroid Medications: YES, SYNTHROID, FOR ABOUT 50 YRS Additional Medications: CLONOPIN PRN, CRESTOR, VIT D DAILY Additional History: CHOLESTEROL, EXAM MEASUREMENTS: Bone mineral densitometry was performed using the [employer] System. Bone mineral density as measured about the Lumbar spine is: ----- L1-L4(G/cm2): 1.161 T Score Values are as follows: ----- L1: 0.1 ----- L2: -1.1 ----- L3: -0.7 ----- L4: 0.9 ----- L1-L4: -0.2 Bone mineral density has: Increased 2.8% since study of: 08.01.2013 BILAT THR's....HIPS NOT SCANNED.... Bone mineral density about the L Wrist (g/cm2): 0.452 T Score values are as follows: -----Dist. R+U: -2.1 -----Prox. R+U: -1.7 -----Radius total: -2.9 Bone mineral density FIRST WRIST SCAN FOR PATIENT IMPRESSION: Osteoporosis (T Score less than -2.5) with respect to the left wrist. There is increased fracture risk and therapy is usually indicated based on age. Re-Screen 1-2 years. NOTE: T-SCORE=SD OF THE YOUNG ADULT MEAN.
[2019-03-22 10:11] LABS: Albumin 4.1 g/dL (3.5-5.0); Calcium 9.5 mg/dL (8.4-10.2); Potassium 4.5 mmol/L (3.5-5.1); Total Bilirubin 0.4 mg/dL (0.2-1.3); Total Protein 6.7 g/dL (6.3-8.2)
== END | disposition home or self-care (01) ==
LOC: RADBDWWP 09:03
PROVIDERS: ATTEND General Practice
DX: M81.0 Age-related osteoporosis without current pathological fracture (principal); G20 Parkinson's disease; E78.5 Hyperlipidemia, unspecified
CPT/HCPCS: 77080; 80053; 80061

== ENCOUNTER → 2019-06-29 | Outpatient (CLI) | payer MEDICARE ==
[2019-06-29 17:45] LABS: T4, Free (Free Thyroxine) 1.1 ng/dL (0.80-1.80)
== END | disposition home or self-care (01) ==
LOC: LABWHC1 10:03
PROVIDERS: ATTEND Internal Medicine Endocrinology, Diabetes & Metabolism
DX: E04.2 Nontoxic multinodular goiter (principal)
CPT/HCPCS: 36415; 84439; 84443

== ENCOUNTER → 2019-10-02 | Outpatient (CLI) | payer MEDICARE ==
[2019-10-02 12:07] LABS: HCT 47.1 % (34.0-46.0); HGB 15.4 gm/dL (11.4-16.0); MCH 29.2 pg (25.0-35.0); MCHC 32.6 g/dL (31.0-37.0); MCV 89.7 fL (80.0-100.0); Mean Platelet Volume 7.1; Platelet Count 365 k/uL (150-450); RBC 5.25 m/uL (3.80-5.40); RDW 12.3 % (11.5-15.5); WBC 7.7 k/uL (3.8-10.6)
[2019-10-02 12:18] LABS: ALT 6 U/L (4-34); AST 26 U/L (14-36); African American GFR (CKD) >90 (>60 ml/min/1.73 sqM); Albumin 4.4 g/dL (3.5-5.0); Alkaline Phosphatase 72 U/L (38-126); Anion Gap 8 mmol/L; Blood Urea Nitrogen 18 mg/dL (7-17); Calcium 9.9 mg/dL (8.4-10.2); Carbon Dioxide 27 mmol/L (22-30); Chloride 107 mmol/L (98-107); Glucose 99 mg/dL (74-99); Non-African American GFR(CKD) 86 (>60 ml/min/1.73 sqM); Potassium 4.6 mmol/L (3.5-5.1); Sodium 142 mmol/L (137-145); Total Bilirubin 0.5 mg/dL (0.2-1.3); Total Protein 7.2 g/dL (6.3-8.2)
--- NOTE | 2019-10-02 15:22 | US ---
EXAMINATION TYPE: US thyroid st tissue head/neck DATE OF EXAM: 10/02/2019 COMPARISON: 09/29/2018 CLINICAL HISTORY: E04.2 Goiter, R22.1 Swelling/Mass/Lump. f/u, previous bx's of lesions GLAND SIZE: Right Lobe: 3.7 x 1.7 x 2.4 cm Overall Parenchyma: heterogenous Left Lobe: 4.1 x 1.9 x 3.0 cm Overall Parenchyma: heterogeneous Isthmus Thickness: 0.6 cm NODULES RIGHT: # of nodules measured on right: 1, measured largest lesion 1. 1.3 X 1.0 x 1.3 cm isoechoic solid nodule at the mid pole with well-defined margins. This nodul e is wider than tall and shows no intranodular vascularity. Prior size: 2.6 x 21. x 1.9 cm LEFT: # of nodules measured on left: 1 1. 1.5 X 1.7 x 1.8 cm mixed nodule at the mid pole with well-defined margins. This nodule is wider than tall and shows no intranodular vascularity. Prior size: 1.8 x 1.7 x 1.9 cm ISTHMUS: # of nodules measured in the isthmus: 0 Bilateral neck scanned, no evidence of lymphadenopathy. IMPRESSION: No interval growth of the bilateral thyroid nodules, currently measuring smaller than on the prior exams.
--- NOTE | 2019-10-02 17:41 | CT ---
EXAMINATION TYPE: CT soft tissue neck w con DATE OF EXAM: 10/02/2019 COMPARISON: None HISTORY: Swelling to neck-bilaterally CT DLP: 607 mGycm CONTRAST: Patient injected with 100 mL of Isovue 300. TECHNIQUE: Axial images at 3 mm thick sections. Reconstructed images in the coronal plane and sagitt al plane are reviewed. FINDINGS: Limited CT sections are obtained the lung apices. The lung apices appear clear. CT neck: The torus tubarius and fossa of Rosenmuller are normal. Shrimp Cleaner spaces are normal. Para nasal sinuses and mastoid air cells are clear. Parotid glands appear normal and symmetrical. Submandibular glands, are normal. Parapharyngeal spac es are normal. No suspicious adenopathy is evident. The hypopharynx appears within normal limits. Vocal cord level appear symmetrical. Thyroid is heterogenous. Nodule appears to be on the posterior left lobe thyroid. Degenerative disc changes are through the cervical spine. IMPRESSIONS: 1. No suspicious abnormality to account for neck swelling.
== END | disposition home or self-care (01) ==
LOC: RADUSWWP 10:59
PROVIDERS: ATTEND Internal Medicine Endocrinology, Diabetes & Metabolism
DX: E04.2 Nontoxic multinodular goiter (principal); R22.1 Localized swelling, mass and lump, neck
CPT/HCPCS: 80053; 84443; 85027; 76536; 70491; 36415; Q9967

== ENCOUNTER → 2019-10-11 | Outpatient (CLI) | payer MEDICARE ==
[2019-10-11 20:19] LABS: ALT <8 U/L (8-44); AST 18 U/L (13-35); African American GFR (CKD) 83.6 (60.0-200.0); Albumin/Globulin Ratio 2.39 (1.60-3.17); Alkaline Phosphatase 73 U/L (41-126); Carbon Dioxide 26.4 mmol/L (21.6-31.8); Chloride 108 mmol/L (96-109); Globulin 1.8 g/dL (1.6-3.3); Glucose 97 mg/dL (70-110); Non-African American GFR(CKD) 72.1 (60.0-200.0); Potassium 4.6 mmol/L (3.5-5.5); Sodium 142 mmol/L (135-145); Total Bilirubin 0.4 mg/dL (0.2-1.2); Total Protein 6.1 g/dL (6.2-8.2)
== END | disposition home or self-care (01) ==
LOC: LABWHC1 12:48
PROVIDERS: ATTEND Internal Medicine Endocrinology, Diabetes & Metabolism
DX: M81.6 Localized osteoporosis [Lequesne] (principal)
CPT/HCPCS: 36415; 80053; 82306; 83970

== ENCOUNTER → 2020-03-10 | Outpatient (CLI) | payer MEDICARE ==
--- NOTE | 2020-03-11 11:57 | MM ---
Reason for exam: screening (asymptomatic). Last mammogram was performed 1 year and 3 months ago. History: Patient is postmenopausal and is nulliparous. Family history of breast cancer in sister at age 62. Benign left mammotome panel of the left breast, November 24, 2007. Benign excisional biopsy of the right breast, 1977. Took hormonal contraceptives for 3 years. Took estrogen for 2 years beginning at age 49. Physical Findings: A clinical breast exam by your physician is recommended on an annual basis and results should be correlated with mammographic findings. MG 3D Screening Mammo W/Cad Bilateral CC and MLO view(s) were taken. Prior study comparison: November 24, 2018, bilateral MG 3d screening mammo w/cad. October 28, 2017, bilateral MG 3d screening mammo w/cad. The breast tissue is heterogeneously dense. This may lower the sensitivity of mammography. Stable benign calcifications. There is chronic nodularity bilaterally. No significant changes when compared with prior studies. ASSESSMENT: Benign, BI-RAD 2 RECOMMENDATION: Routine screening mammogram of both breasts in 1 year.
== END | disposition home or self-care (01) ==
LOC: RADMAMWWP 09:20
PROVIDERS: ATTEND General Practice
DX: Z12.31 Encounter for screening mammogram for malignant neoplasm of breast (principal)
CPT/HCPCS: 77063; 77067

== ENCOUNTER → 2020-09-10 | Outpatient (CLI) | payer MEDICARE ==
[2020-09-10 10:36] LABS: HCT 47.5 % (34.0-46.0); HGB 15.9 gm/dL (11.4-16.0); MCHC 33.4 g/dL (31.0-37.0); MCV 89.9 fL (80.0-100.0); Mean Platelet Volume 6.8; Platelet Count 317 k/uL (150-450); RBC 5.29 m/uL (3.80-5.40); RDW 12.4 % (11.5-15.5); WBC 6.1 k/uL (3.8-10.6)
[2020-09-10 17:20] LABS: ALT <8 U/L (8-44); AST 17 U/L (13-35); Albumin/Globulin Ratio 2.15 (1.60-3.17); Alkaline Phosphatase 73 U/L (41-126); BUN/Creat Ratio 18.75 Ratio (12.00-20.00); Calcium 9.1 mg/dL (8.7-10.3); Carbon Dioxide 25.5 mmol/L (21.6-31.8); Chloride 108 mmol/L (96-109); Chol/HDL Ratio 2.92; Cholesterol 216 mg/dL (0-200); Glucose 97 mg/dL (70-110); Non-African American GFR(CKD) 71.6 (60.0-200.0); Potassium 4.4 mmol/L (3.5-5.5); Sodium 143 mmol/L (135-145); Total Bilirubin 0.5 mg/dL (0.2-1.2); Total Protein 6.3 g/dL (6.2-8.2)
== END | disposition home or self-care (01) ==
LOC: LABWHC1 09:48
PROVIDERS: ATTEND General Practice
DX: E03.9 Hypothyroidism, unspecified (principal); E78.5 Hyperlipidemia, unspecified; G20 Parkinson's disease
CPT/HCPCS: 36415; 80053; 80061; 84443; 85027

== ENCOUNTER → 2020-10-15 | Outpatient (CLI) | payer MEDICARE ==
[2020-10-15 22:51] LABS: Albumin 4.2 g/dL (3.80-4.90); Albumin/Globulin Ratio 2.1 (1.60-3.17); BUN/Creat Ratio 21.25 Ratio (12.00-20.00); Calcium 9.3 mg/dL (8.7-10.3); Non-African American GFR(CKD) 71.6 (60.0-200.0); Potassium 4.3 mmol/L (3.5-5.5); Total Bilirubin 0.3 mg/dL (0.2-1.2); Total Protein 6.2 g/dL (6.2-8.2)
[2020-10-15 22:58] LABS: T4, Free (Free Thyroxine) 1.2 ng/dL (0.80-1.80)
== END | disposition home or self-care (01) ==
LOC: LABWHC1 13:26
PROVIDERS: ATTEND Internal Medicine Endocrinology, Diabetes & Metabolism
DX: E04.2 Nontoxic multinodular goiter (principal); M81.6 Localized osteoporosis [Lequesne]
CPT/HCPCS: 36415; 80053; 82306; 83970; 84439; 84443

== ENCOUNTER → 2021-01-13 | Outpatient (CLI) | payer MEDICARE ==
[2021-01-14 19:21] LABS: Albumin 4.5 g/dL (3.80-4.90); Albumin/Globulin Ratio 2.25 (1.60-3.17); Anion Gap 14.9 mmol/L (4.00-12.00); BUN/Creat Ratio 22.5 Ratio (12.00-20.00); Calcium 9.6 mg/dL (8.7-10.3); Carbon Dioxide 19.1 mmol/L (21.6-31.8); Non-African American GFR(CKD) 71.6 (60.0-200.0); Potassium 4.4 mmol/L (3.5-5.5); Total Bilirubin 0.4 mg/dL (0.3-1.2); Total Protein 6.5 g/dL (6.2-8.2)
== END ==
LOC: LABWHC1 12:47
PROVIDERS: ATTEND Internal Medicine Endocrinology, Diabetes & Metabolism
DX: E21.0 Primary hyperparathyroidism (principal)
CPT/HCPCS: 36415; 80053; 83970

== ENCOUNTER → 2021-03-18 | Outpatient (CLI) | payer MEDICARE ==
--- NOTE | 2021-03-19 10:11 | MM ---
Reason for exam: screening (asymptomatic). Last mammogram was performed 1 year ago. History: Patient is postmenopausal and is nulliparous. Family history of breast cancer in sister at age 62. Benign left mammotome panel of the left breast, November 24, 2007. Benign excisional biopsy of the right breast, 1977. Took hormonal contraceptives for 3 years. Took estrogen for 2 years beginning at age 49. Physical Findings: A clinical breast exam by your physician is recommended on an annual basis and results should be correlated with mammographic findings. MG 3D Screening Mammo W/Cad Bilateral CC and MLO view(s) were taken. Prior study comparison: March 10, 2020, bilateral MG 3d screening mammo w/cad. November 24, 2018, bilateral MG 3d screening mammo w/cad. There are scattered fibroglandular densities. Left biopsy clip. ASSESSMENT: Benign, BI-RAD 2 RECOMMENDATION: Routine screening mammogram of both breasts in 1 year.
== END | disposition home or self-care (01) ==
LOC: RADMAMWWP 11:05
PROVIDERS: ATTEND General Practice
DX: Z12.31 Encounter for screening mammogram for malignant neoplasm of breast (principal)
CPT/HCPCS: 77063; 77067

== ENCOUNTER → 2021-06-04 | Outpatient (CLI) | payer MEDICARE ==
[2021-06-04 19:16] LABS: HCT 45.9 % (37.2-46.3); HGB 14.8 g/dL (12.0-15.0); MCHC 32.2 g/dL (32.0-37.0); MCV 92.9 fL (80.0-97.0); Mean Platelet Volume 9.7 fL (9.5-12.2); Platelet Count 312 X 10*3/uL (140-440); RBC 4.94 X 10*6/uL (4.10-5.20); RDW 12.1 % (11.5-14.5)
[2021-06-04 21:29] LABS: Hemoglobin A1C 5.7 % (4.0-6.0)
[2021-06-05 01:51] LABS: Chol/HDL Ratio 2.96; LDL Cholesterol,Calculated 107.8 mg/dL (0.0-131.0); VLDL Calculation 23.2 mg/dL (5.00-40.00)
[2021-06-05 01:52] LABS: Albumin 4.4 g/dL (3.80-4.90); Anion Gap 11.8 mmol/L (4.00-12.00); BUN/Creat Ratio 17.5 Ratio (12.00-20.00); Calcium 9.1 mg/dL (8.7-10.3); Carbon Dioxide 24.2 mmol/L (21.6-31.8); Globulin 2.2 g/dL (1.6-3.3); Non-African American GFR(CKD) 71.6 (60.0-200.0); Potassium 4.2 mmol/L (3.5-5.5); Total Bilirubin 0.5 mg/dL (0.3-1.2); Total Protein 6.6 g/dL (6.2-8.2)
== END | disposition home or self-care (01) ==
LOC: LABWHC1 09:29
PROVIDERS: ATTEND Internal Medicine Endocrinology, Diabetes & Metabolism
DX: E21.0 Primary hyperparathyroidism (principal); G20 Parkinson's disease; E03.9 Hypothyroidism, unspecified; R53.83 Other fatigue; E78.5 Hyperlipidemia, unspecified
CPT/HCPCS: 36415; 80053; 80061; 82306; 83036; 83970; 84443; 85027

== ENCOUNTER → 2021-09-02 | Outpatient (CLI) | payer MEDICARE ==
[2021-09-02 20:36] LABS: African American GFR (CKD) 88.7 (60.0-200.0); Albumin 4.3 g/dL (3.8-4.9); Albumin/Globulin Ratio 1.85 (1.60-3.17); Anion Gap 9.3 mmol/L (10.00-18.00); BUN/Creat Ratio 21.91 Ratio (12.00-20.00); Blood Urea Nitrogen 16.5 mg/dL (9.0-27.0); Calcium 9.7 mg/dL (8.7-10.3); Carbon Dioxide 27.8 mmol/L (20.0-27.5); Globulin 2.3 g/dL (1.6-3.3); Non-African American GFR(CKD) 76.5 (60.0-200.0); Potassium 4.7 mmol/L (3.5-5.5); T4, Free (Free Thyroxine) 1.38 ng/dL (0.800-1.800); Total Bilirubin 0.3 mg/dL (0.30-1.20); Total Protein 6.7 g/dL (6.2-8.2)
== END | disposition home or self-care (01) ==
LOC: LABWHC1 12:46
PROVIDERS: ATTEND Internal Medicine Endocrinology, Diabetes & Metabolism
DX: E04.2 Nontoxic multinodular goiter (principal); E21.1 Secondary hyperparathyroidism, not elsewhere classified
CPT/HCPCS: 36415; 80053; 82306; 83970; 84439; 84443

== ENCOUNTER → 2021-09-09 | Outpatient (CLI) | payer MEDICARE ==
[2021-09-09 16:12] LABS: T4, Free (Free Thyroxine) 1.38 ng/dL (0.800-1.800)
== END | disposition home or self-care (01) ==
LOC: LABWHC1 10:41
PROVIDERS: ATTEND Ophthalmology
DX: G70.00 Myasthenia gravis without (acute) exacerbation (principal)
CPT/HCPCS: 36415; 83519; 84439; 84443; 85652

== ENCOUNTER → 2021-11-10 | Outpatient (CLI) | payer MEDICARE ==
--- NOTE | 2021-11-10 12:37 | MR ---
EXAMINATION TYPE: MR brain wo con DATE OF EXAM: 11/10/2021 COMPARISON: Prior MRI brain March 15, 2017 HISTORY: Parkinson's, unsteady gait, hx of stroke. TECHNIQUE: Multiplanar, multisequence imaging of the brain and brainstem is performed without IV cont rast. FINDINGS: Diffusion weighted images demonstrate no evidence of a recent infarct or other diffusion abnormality. There is no worrisome extra-axial fluid collection. There is mild ventricular and sulcal prominence c onsistent with diffuse cerebral atrophy. There are focal and confluent areas of T2 hyperintensity see n throughout the white matter bilaterally. Lesions are nonspecific in appearance and distribution but most likely on basis of product of chronic small vessel ischemic change in patient of this age. Midline structures demonstrate normal morphology. The craniocervical junction appears within normal limits. Normal vascular flow voids are present. Mild mucosal thickening involving ethmoid sinuses arlene aterally is redemonstrated. Remainder paranasal sinuses are clear. Globes are intact bilaterally. IMPRESSION: Mild diffuse age-related cerebral atrophy and moderate to severe chronic small vessel isc hemic change redemonstrated. No significant change or progression from 2017 MRI.
== END | disposition home or self-care (01) ==
LOC: RADMRIMAIN 11:47
PROVIDERS: ATTEND Psychiatry & Neurology Neurology
DX: G31.9 Degenerative disease of nervous system, unspecified (principal); Z86.73 Personal history of transient ischemic attack (TIA), and cerebral infarction without residual deficits
CPT/HCPCS: 70551

== ENCOUNTER → 2021-12-03 | Outpatient (CLI) | payer MEDICARE ==
--- NOTE | 2021-12-03 17:01 | ECHOF ---
Referral Reason:Z86.73 History of stroke MEASUREMENTS -------- HEIGHT: 160.0 cm WEIGHT: 84.8 kg BP: 135/68 RVIDd: 2.5 cm (< 3.3) IVSd: 1.3 cm (0.6 - 1.1) LVIDd: 3.8 cm (3.9 - 5.3) LVPWd: 1.1 cm (0.6 - 1.1) IVSs: 1.4 cm LVIDs: 2.6 cm LVPWs: 1.7 cm LA Diam: 3.0 cm (2.7 - 3.8) Ao Diam: 2.9 cm (2.0 - 3.7) AV Cusp: 1.9 cm (1.5 - 2.6) MV EXCURSION: 16.638 mm (> 18.000) MV EF SLOPE: 30 mm/s (70 - 150) EPSS: 0.4 cm MV E Marcelino: 0.58 m/s MV DecT: 232 ms MV A Marcelino: 0.68 m/s MV E/A Ratio: 0.85 RAP: 5.00 mmHg RVSP: 27.81 mmHg FINDINGS -------- Sinus rhythm. This was a technically adequate study. The left ventricular size is normal. There is mild concentric left ventricular hypertrophy. Overa ll left ventricular systolic function is normal with, an EF between 55 - 60 %. The right ventricle is normal in size. Normal LA size by volume 22+/-6 ml/m2. The right atrium is normal in size. Interatrial and interventricular septum intact. Aortic valve is trileaflet and is mildly thickened. The mitral valve is normal. Mild tricuspid regurgitation present. Right ventricular systolic pressure is normal at < 35 mmHg. The pulmonic valve is normal. The aortic root size is normal. Normal inferior vena cava with normal inspiratory collapse consistent with estimated right atrial pre ssure of 5 mmHg. Echo free space may represent effusion or a pericardial fat pad. CONCLUSIONS -------- 1. The left ventricular size is normal. 2. There is mild concentric left ventricular hypertrophy. 3. Overall left ventricular systolic function is normal with, an EF between 55 - 60 %. 4. Interatrial and interventricular septum intact. 5. Aortic valve is trileaflet and is mildly thickened. 6. Mild tricuspid regurgitation present. 7. Echo free space may represent effusion or a pericardial fat pad. LAB COORDINATOR: Angeline Sharif RDCS
== END | disposition home or self-care (01) ==
LOC: RADECHMAIN 13:52
PROVIDERS: ATTEND Psychiatry & Neurology Neurology
DX: I51.7 Cardiomegaly (principal); Q89.9 Congenital malformation, unspecified
CPT/HCPCS: 93306

== ENCOUNTER → 2022-02-01 | Outpatient (CLI) | payer MEDICARE ==
--- NOTE | 2022-02-01 14:33 | US ---
EXAMINATION TYPE: US carotid duplex BILAT DATE OF EXAM: 02/01/2022 COMPARISON: Prior carotid ultrasound 2017 CLINICAL HISTORY: Z86.73 History of stroke. No HTN. Patient said she doesn't know if she has had a s troke but is showing signs. EXAM MEASUREMENTS: RIGHT: Peak Systolic Velocity (PSV) cm/sec ----- Right CCA: 65.6 ----- Right ICA: 69.5 ----- Right ECA: 114.0 ICA/CCA ratio: 1.1 RIGHT: End Diastole cm/sec ----- Right CCA: 7.8 ----- Right ICA: 5.2 ----- Right ECA: 4.9 LEFT: Peak Systolic Velocity (PSV) cm/sec ----- Left CCA: 58.1 ----- Left ICA: 80.2 ----- Left ECA: 74.0 ICA/CCA ratio: 1.4 LEFT: End Diastole cm/sec ----- Left CCA: 10.3 ----- Left ICA: 21.6 ----- Left ECA: 7.2 VERTEBRALS (direction of flow): Right Vertebral: Antegrade Left Vertebral: Antegrade Rhythm: Normal Small amount of plaque in right bulb. No elevated velocities, wall thickening or stenosis. Grayscale images show mild peripheral hyperechoic plaque in right carotid bulb similar to prior. IMPRESSION: No hemodynamically significant stenosis in either internal carotid artery. No signific ant change from prior. Criteria for Assigning % of Stenosis / Diameter reduction (Estimation based on the indirect measurements of the internal carotid artery velocities (ICA PSV). 1. Normal (no stenosis)=ICA PSV < 125 cm/s: ratio < 2.0: ICA EDV<40 cm/s. 2. Less than 50% stenosis=ICA PSV < 125 cm/s: ratio < 2.0: ICA EDV<40 cm/s. 3. 50 to 69% stenosis=ICA PSV of 125 to 230 cm/s: ration 2.0 ? 4.0: ICA EDV 40-100 cm/s. 4. Greater than 70% stenosis to near occlusion= ICA PSV > 230 cm/s: ratio > 4.0: ICA EDV > 100 cm/s. 5. Near occlusion= ICA PSV velocities may be low or undetectable: variable ratio and ICA EDV. 6. Total occlusion=unable to detect flow.
== END | disposition home or self-care (01) ==
LOC: RADUSWWP 12:34
PROVIDERS: ATTEND Psychiatry & Neurology Neurology
DX: Z86.73 Personal history of transient ischemic attack (TIA), and cerebral infarction without residual deficits (principal)
CPT/HCPCS: 93880

== ENCOUNTER → 2022-03-30 | Outpatient (CLI) | payer MEDICARE | END | disposition home or self-care (01) | LOC: LABWHC1 16:17 | PROVIDERS: ATTEND Family Medicine | DX: Z53.9 Procedure and treatment not carried out, unspecified reason (principal) ==

== ENCOUNTER → 2022-04-07 | Outpatient (CLI) | payer MEDICARE ==
[2022-04-07 17:09] LABS: ALT <5 U/L (8-44); AST 19 U/L (13-35); African American GFR (CKD) 101.9 (60.0-200.0); Albumin 4.2 g/dL (3.8-4.9); Albumin/Globulin Ratio 1.56 (1.60-3.17); Alkaline Phosphatase 65 U/L (41-126); Blood Urea Nitrogen 14.4 mg/dL (9.0-27.0); Calcium 9.5 mg/dL (8.7-10.3); Carbon Dioxide 25.6 mmol/L (20.0-27.5); Chloride 107 mmol/L (96-109); Globulin 2.7 g/dL (1.6-3.3); Glucose 96 mg/dL (70-110); Non-African American GFR(CKD) 87.9 (60.0-200.0); Potassium 3.8 mmol/L (3.5-5.5); Sodium 143 mmol/L (135-145); Total Protein 6.9 g/dL (6.2-8.2); VLDL Calculation 13.26 mg/dL (5.00-40.00)
[2022-04-07 17:23] LABS: HCT 44.8 % (37.2-46.3); MCH 28.6 pg (27.0-32.0); MCHC 31.3 g/dL (32.0-37.0); MCV 91.4 fL (80.0-97.0); Mean Platelet Volume 9.8 fL (9.5-12.2); NRBC Per 100 WBC 0 /100 WBCS (0.0-0.0); Platelet Count 315 X 10*3/uL (140-440); RDW 12.1 % (11.5-14.5); WBC 5.64 X 10*3/uL (4.50-10.00)
== END | disposition home or self-care (01) ==
LOC: LABWHC1 09:23
PROVIDERS: ATTEND Family Medicine
DX: I10 Essential (primary) hypertension (principal); E55.9 Vitamin D deficiency, unspecified; E03.9 Hypothyroidism, unspecified
CPT/HCPCS: 36415; 80053; 80061; 83036; 84443; 85027

== ENCOUNTER 2022-06-23 08:00 | Emergency (ER) | payer MEDICARE ==
--- NOTE | 2022-06-23 08:07 | ED ---
Extremity Problem HPI - General Stated complaint: fall - neck & back pain Source: EMS - History of Present Illness Initial comments: Patient seen and evaluated by my KAITLIN Sanders - Related Data Home Medications Medication Instructions Recorded Confirmed Carbidopa/Levodopa [Sinemet 25-100 1 tab PO QID 01/04/19 06/23/22 mg] Levothyroxine Sodium [Synthroid] 50 mcg PO DAILY 01/04/19 06/23/22 Rosuvastatin Calcium [Crestor] 5 mg PO MOWEFR@2100 01/04/19 06/23/22 Cholecalciferol [Vitamin D3 (25 75 mcg PO BID-W/MEALS 06/23/22 06/23/22 Mcg = 1000 Iu)] clonazePAM 0.5 - 1 mg PO BID PRN 06/23/22 06/23/22 Allergies Allergy/AdvReac Type Severity Reaction Status Date / Time cheese Allergy Abdominal Verified 06/23/22 11:03 Pain Review of Systems ROS Statement: Those systems with pertinent positive or pertinent negative responses have been documented in the HPI. ROS Other: All systems not noted in ROS Statement are negative. Past Medical History Past Medical History: Hyperlipidemia, Neurologic Disorder, Osteoarthritis (OA), Thyroid Disorder Additional Past Medical History / Comment(s): Parkinson's disease-left hand tremor History of Any Multi-Drug Resistant Organisms: None Reported Past Surgical History: Joint Replacement, Orthopedic Surgery, Tubal Ligation Additional Past Surgical History / Comment(s): left hip replaced, right total hip arthroplasty anterior approach 01/09/2019, deviated septum repaired, right CTS Past Anesthesia/Blood Transfusion Reactions: No Reported Reaction Past Psychological History: No Psychological Hx Reported Past Alcohol Use History: None Reported Additional Past Alcohol Use History / Comment(s): quit smoking 1974, smoked 10- 15 years <ppd Past Drug Use History: None Reported Additional Drug Use History / Comment(s): The patient was a smoker for only about 10-15 years less than a pack per day and quit in 1974. She denies any marijuana, street drug or alcohol use. She lives at home with her . - Past Family History Sister(s) Family Medical History: Cancer Additional Family Medical History / Comment(s): Sister. is alive at age 84 and is a survivor of breast cancer. Mother Family Medical History: Cancer, Deep Vein Thrombosis (DVT), Pulmonary Embolus Additional Family Medical History / Comment(s): Mother at age 82 from uterine cancer with metastatic disease to the lungs. Brother(s) Additional Family Medical History / Comment(s): Patient has one brother age 80 with fibromyalgia, osteoarthritis and macular degeneration. Patient does not have any children. General Exam - General Exam Comments Initial Comments: This is a well-developed well-nourished awake alert oriented 4 female. Remainder the evaluation by Tommy Neck exam: Present: meningismus GI/Abdominal exam: Absent: distended, tenderness, guarding, rebound, rigid Extremities exam: Absent: tenderness, pedal edema, joint swelling, calf tenderness Skin exam: Absent: rash Course Vital Signs 06/23/22 06/23/22 08:17 13:50 Temperature 98.2 F 98 F Pulse Rate 75 72 Respiratory 18 18 Rate Blood Pressure 129/71 125/68 O2 Sat by Pulse 98 98 Oximetry Disposition Clinical Impression: Fall, Neck pain, Contusion of right knee Disposition: HOME SELF-CARE Condition: Stable Instructions (If sedation given, give patient instructions): Acute Neck Pain (ED) Additional Instructions: Please return to the Emergency Department if symptoms worsen or any other concerns. Is patient prescribed a controlled substance at d/c from ED?: No Referrals: Santi Hightower DO [Doctor of Osteopathic Medicine] - 1-2 days Adry Faith MD [REFERRING] - 1-2 days Decision Date: 06/23/22
[2022-06-23 08:20] VITALS: RESP 18
--- NOTE | 2022-06-23 08:25 | ED ---
Fall HPI - General Chief Complaint: Fall Stated Complaint: fall - neck & back pain Time Seen by Provider: 06/23/22 08:00 Source: patient, EMS Mode of arrival: EMS Limitations: no limitations - History of Present Illness Initial Comments: This a 76-year-old female presents emergency Department with chief complaint of fall. Patient states she is trip and fall at home she has complaint of some mild head neck pain and right knee pain. Patient denies any loss conscious. Denies any Blood thinners. Patient is able to ambulate. Patient denies any blurred vision no focal weakness or chest. Patient denies any other associated complaints. - Related Data Home Medications Medication Instructions Recorded Confirmed Carbidopa/Levodopa [Sinemet 25-100 1 tab PO QID 01/04/19 06/23/22 mg] Levothyroxine Sodium [Synthroid] 50 mcg PO DAILY 01/04/19 06/23/22 Rosuvastatin Calcium [Crestor] 5 mg PO MOWEFR@2100 01/04/19 06/23/22 Cholecalciferol [Vitamin D3 (25 75 mcg PO BID-W/MEALS 06/23/22 06/23/22 Mcg = 1000 Iu)] clonazePAM 0.5 - 1 mg PO BID PRN 06/23/22 06/23/22 Allergies Allergy/AdvReac Type Severity Reaction Status Date / Time cheese Allergy Abdominal Verified 06/23/22 11:03 Pain Review of Systems ROS Statement: Those systems with pertinent positive or pertinent negative responses have been documented in the HPI. ROS Other: All systems not noted in ROS Statement are negative. Past Medical History Past Medical History: Hyperlipidemia, Neurologic Disorder, Osteoarthritis (OA), Thyroid Disorder Additional Past Medical History / Comment(s): Parkinson's disease-left hand tremor History of Any Multi-Drug Resistant Organisms: None Reported Past Surgical History: Joint Replacement, Orthopedic Surgery, Tubal Ligation Additional Past Surgical History / Comment(s): left hip replaced, right total hip arthroplasty anterior approach 01/09/2019, deviated septum repaired, right CTS, eye surgery Past Anesthesia/Blood Transfusion Reactions: No Reported Reaction Past Psychological History: No Psychological Hx Reported Smoking Status: Never smoker Past Alcohol Use History: None Reported Past Drug Use History: None Reported - Past Family History Sister(s) Family Medical History: Cancer Additional Family Medical History / Comment(s): Sister. is alive at age 84 and is a survivor of breast cancer. Mother Family Medical History: Cancer, Deep Vein Thrombosis (DVT), Pulmonary Embolus Additional Family Medical History / Comment(s): Mother at age 82 from uterine cancer with metastatic disease to the lungs. Brother(s) Additional Family Medical History / Comment(s): Patient has one brother age 80 with fibromyalgia, osteoarthritis and macular degeneration. Patient does not have any children. General Exam Limitations: no limitations General appearance: alert Head exam: Present: atraumatic, normocephalic, normal inspection Eye exam: Present: normal appearance, PERRL, EOMI. Absent: scleral icterus, conjunctival injection, periorbital swelling ENT exam: Present: normal exam, mucous membranes moist Neck exam: Present: normal inspection. Absent: tenderness, meningismus, lymphadenopathy Respiratory exam: Present: normal lung sounds bilaterally. Absent: respiratory distress, wheezes, rales, rhonchi, stridor Cardiovascular Exam: Present: regular rate, normal rhythm, normal heart sounds. Absent: systolic murmur, diastolic murmur, rubs, gallop, clicks Extremities exam: Present: other (Mild right knee pain for range of motion neurovascular intact remaining extremity exam within normal limits) Back exam: Present: full ROM. Absent: tenderness, paraspinal tenderness, vertebral tenderness Neurological exam: Present: alert, oriented X3, CN II-XII intact, reflexes normal. Absent: motor sensory deficit Skin exam: Present: warm, dry, intact, normal color. Absent: rash Course Vital Signs 06/23/22 08:17 Temperature 98.2 F Pulse Rate 75 Respiratory 18 Rate Blood Pressure 129/71 O2 Sat by Pulse 98 Oximetry Medical Decision Making - Medical Decision Making 76-year-old female presented for a fall. CT was obtained initially some possibility of C3 fracture. This was reviewed by orthopedics and which they fel t that was concerning for fracture patient was placed in hard collar. Patient did have MRI performed which did not identify any C3 fracture does show bulging disc. I did update orthopedics in which they recommend patient be discharged with soft collar follow-up next week with Dr. Hightower. Disposition Clinical Impression: Fall, Neck pain, Contusion of right knee Disposition: HOME SELF-CARE Condition: Stable Instructions (If sedation given, give patient instructions): Acute Neck Pain (ED) Additional Instructions: Please return to the Emergency Department if symptoms worsen or any other concerns. Is patient prescribed a controlled substance at d/c from ED?: No Referrals: Adry Faith MD [REFERRING] - 1-2 days Santi Hightower DO [Doctor of Osteopathic Medicine] - 1-2 days Time of Disposition: 13:21
--- NOTE | 2022-06-23 08:39 | XR ---
EXAMINATION TYPE: XR knee complete RT DATE OF EXAM: 06/23/2022 CLINICAL HISTORY: Pain. TECHNIQUE: Three views of the right knee are obtained. COMPARISON: None. FINDINGS: There is no acute fracture/dislocation evident in right knee. Moderate to severe narrowing patellofemoral compartment with mild to moderate spurring. Mild to moderate narrowing and mild spurr ing medial tibial femoral compartment. Overlying soft tissue is unremarkable. IMPRESSION: As above.
--- NOTE | 2022-06-23 09:24 | CT ---
EXAMINATION TYPE: CT brain cspine wo con DATE OF EXAM: 06/23/2022 COMPARISON: None HISTORY: Fall. Neck and back pain. CT DLP: 1437 mGycm, Automated exposure control for dose reduction was used. CONTRAST: Patient injected with 0 mL of Isovue 300. CT of the brain is performed utilizing 3 mm thick sections through the posterior fossa and 3 mm thick sections through the remaining calvarium. Study is performed within 24 hours of arrival to the hospital. No abnormal hyperdensity is present to suggest an acute intracranial hemorrhage. No mass lesion is evident. No acute infarcts are evident. Patchy periventricular white matter hypodensity is present, likely on the basis of chronic white matter ischemic changes. Ventricles and sulci are appropriate for the patient age. Paranasal sinuses and mastoid air cells within the [id number] are clear. IMPRESSIONS: 1. Patchy periventricular chronic appearing white matter ischemic changes. CT cervical spine. COMPARISON: None CT of the cervical spine is performed in the axial plane at 2 mm thick sections. Reconstructed image s in the coronal, and sagittal plane are reviewed on the computer. There is a lucency crossing the right C3 lamina may be a transverse fracture. Series 301 image 35. An additional ring fracture however is not identified. Facet changes are present on the left at C3-4 an d to a lesser degree C4-5. Some mild uncovertebral joint hypertrophy is present C4-5 bilaterally and on the right at C5-6. There is some side bending towards the left through the cervical spine. Disc space narrowing is present C5-6 and C6-C7 Vertebral body heights are preserved. No spinal canal stenosis is evident. Mild foraminal narrowing is present on the left at C2-3 moderate on the left at C3-4 and mild left C4 -5 and mild on the right at C5-6. IMPRESSIONS: 1. There is a lucency within the right C3 lamina region. This may be artifact as a second reading fra cture is not identified. This appears nondisplaced. Fracture at this level cannot be excluded. Report was called and case discussed with the emergency room PA by Dr. Reynoso by telephone [id number] hours 06/15. 2. Degenerative disc changes and some mild foraminal narrowing discussed above.
--- NOTE | 2022-06-23 12:54 | MR ---
EXAMINATION TYPE: MR cervical spine wo con DATE OF EXAM: 06/23/2022 COMPARISON: CT cervical spine 06/23/2022 HISTORY: Fall, C3 fx, abnormal CT CONTRAST: Performed utilizing 0 mL intravenous Gadavist gadolinium contrast. TECHNIQUE: Multiplanar multiecho imaging on a 3.0 Mimi magnet is performed through the cervical spin e. FINDINGS: The craniovertebral junction is normal. Vertebral body alignment is normal. Attention is paid to the C3 level. No suspicious cortical disruption is identified. No edema is evide nt. No soft tissue swelling is identified. C7-T1: No focal disc herniation or significant disc bulge is evident. No spinal canal stenosis or n eural foraminal stenosis is present. C6-7: No focal disc herniation or significant disc bulge is evident. No spinal canal stenosis or emil ral foraminal stenosis is present. C5-6: No focal disc herniation or significant disc bulge is evident. No spinal canal stenosis or emil ral foraminal stenosis is present. C4-5: Central focal bulge is present with mild to moderate anterior thecal sac impression. Some mild cord contact may be present. Cord deformity is present. AP spinal canal stenosis is not present.. C3-4: Small central focal bulge is present with anterior thecal sac compression. No cord contact or s rebekah canal stenosis is present.. C2-3: No focal disc herniation or significant disc bulge is evident. No spinal canal stenosis or emil ral foraminal stenosis is present. Thyroid cysts appear to be present, larger on the left. IMPRESSIONS: 1. Suspicious right C3 fracture not identified on the MRI. Follow-up can be performed as clinically i ndicated. 2. Central disc bulging C3-4 C4-5. This has some moderate anterior thecal sac impression and mild cor d deformity at the C4-5 level.
[2022-06-23 14:07] VITALS: BP 125/68; PULSE 72; TEMP 98
== END 2022-06-23 13:50 | disposition home or self-care (01) ==
LOC: EC 08:00
DX: S80.01XA Contusion of right knee, initial encounter (principal); M54.2 Cervicalgia; E78.5 Hyperlipidemia, unspecified; Z91.011 Allergy to milk products; Z79.899 Other long term (current) drug therapy; W01.0XXA Fall on same level from slipping, tripping and stumbling without subsequent striking against object, initial encounter
CPT/HCPCS: 70450; 72125; 72141; 99284

== ENCOUNTER → 2023-01-05 | Outpatient (CLI) | payer MEDICARE ==
--- NOTE | 2023-01-05 13:29 | US ---
EXAMINATION TYPE: US venous doppler duplex LE DATE OF EXAM: 01/05/2023 1:07 PM COMPARISON: NONE CLINICAL HISTORY: R60.9 EDEMA. swelling in legs since June, no h/o dvt SIDE PERFORMED: Bilateral TECHNIQUE: The lower extremity deep venous system is examined utilizing real time linear array sonog erlinda with graded compression, doppler sonography and color-flow sonography. 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 Grayscale, color doppler, spectral doppler imaging performed of the deep veins of the lower extremiti es. There is normal flow, compressibility, vascular waveforms. Right Leg: Negative for DVT Left Leg: Negative for DVT IMPRESSION: No evidence for deep venous thrombosis within the bilateral lower extremities within limitations of e xam.
== END | disposition home or self-care (01) ==
LOC: RADUSWWP 12:32
PROVIDERS: ATTEND Family Medicine
DX: R60.9 Edema, unspecified (principal)
CPT/HCPCS: 93970

== ENCOUNTER → 2023-01-21 | Outpatient (CLI) | payer MEDICARE ==
--- NOTE | 2023-01-21 15:35 | US ---
EXAMINATION TYPE: US thyroid st tissue head/neck DATE OF EXAM: 01/21/2023 COMPARISON: US October [address] neck 2019 CLINICAL INDICATION: Female, 77 years old with history of E04.2 nontoxic multinodular goiter; GLAND SIZE: Right Lobe: 4.1 x 2.7 x 2.1 cm Overall Parenchyma: heterogenous Left Lobe: 4.1 x 2.4 x 2.1 cm Overall Parenchyma: heterogeneous Isthmus Thickness: 0.4 cm NODULES RIGHT: # of nodules measured on right: 2 1. 2.2 X 2.4 x 1.6 cm, mid, solid or almost completely solid, hyperechoic nodule, which is wider th an tall, with ill-defined margins, without echogenic foci. Prior size: 1.3 x 1.2 x 1.0 cm 2. 1.3 X 1.1 x 1.3 cm, mid, cystic or almost completely cystic, hypoechoic nodule, which is wider t garcia tall, with ill-defined margins, without echogenic foci. Prior size: no prior LEFT: # of nodules measured on left: 1 1. 2.2 X 2.3 x 1.9 cm, mid, mixed cystic and solid, hypoechoic nodule, which is taller than wide, w ith ill-defined margins, without echogenic foci. Prior size: 1.5 x 1.7 x 1.8 cm ISTHMUS: # of nodules measured in the isthmus: 0 Bilateral neck scanned, no evidence of lymphadenopathy. Limited images of sagittal thyroid due to patient unable to lift chin Suboptimal study. Heterogeneous normal-sized thyroid with dominant bilateral thyroid nodules as noted above. They have similar measurements to the 2017 ultrasound study. Smaller cystic nodule right thyr oid was not marked or present on prior studies. IMPRESSION: No concerning enlarging or new greater than 1 cm solid nodules.
== END | disposition home or self-care (01) ==
LOC: RADUSWWP 13:04
PROVIDERS: ATTEND Internal Medicine Endocrinology, Diabetes & Metabolism
DX: E04.2 Nontoxic multinodular goiter (principal)
CPT/HCPCS: 76536

== ENCOUNTER 2023-04-18 13:15 | Observation (INO) | payer MEDICARE ==
[2023-04-18] MEDS ORDERED: SODIUM CHLORIDE 0.9% 500 ML 500 ML IV STA (13:57)
[2023-04-18 14:17] LABS: Basophils % (A) 0 %; Eosinophils # (A) 0.1 k/uL (0-0.7); Eosinophils % (A) 1 %; HCT 41.6 % (34.0-46.0); HGB 13.5 gm/dL (11.4-16.0); Lymphocytes # (A) 1.6 k/uL (1.0-4.8); Lymphocytes % (A) 18 %; MCH 29.6 pg (25.0-35.0); MCHC 32.5 g/dL (31.0-37.0); MCV 91.2 fL (80.0-100.0); Mean Platelet Volume 7.4; Monocytes # (A) 0.7 k/uL (0-1.0); Monocytes % (A) 7 %; Neutrophils # (A) 6.6 k/uL (1.3-7.7); Neutrophils % (A) 73 %; Platelet Count 350 k/uL (150-450); RBC 4.56 m/uL (3.80-5.40); WBC 9.1 k/uL (3.8-10.6)
[2023-04-18 14:27] LABS: ALT 8 U/L (4-34); AST 25 U/L (14-36); African American GFR (CKD) >90 (>60 ml/min/1.73 sqM); Albumin 3.7 g/dL (3.5-5.0); Alkaline Phosphatase 95 U/L (38-126); Anion Gap 5 mmol/L; Blood Urea Nitrogen 13 mg/dL (7-17); Calcium 9.1 mg/dL (8.4-10.2); Carbon Dioxide 31 mmol/L (22-30); Chloride 106 mmol/L (98-107); Glucose 107 mg/dL (74-99); Non-African American GFR(CKD) 88 (>60 ml/min/1.73 sqM); Potassium 3.3 mmol/L (3.5-5.1); Sodium 142 mmol/L (137-145); Total Bilirubin 0.7 mg/dL (0.2-1.3); Total Protein 6.5 g/dL (6.3-8.2)
[2023-04-18 14:34] LABS: Prothrombin Time 10.8 sec (9.0-12.0)
[2023-04-18 14:37] LABS: NT-Pro-B-Type Natriuretic Pept 82 pg/mL
--- NOTE | 2023-04-18 14:47 | XR ---
EXAMINATION TYPE: XR chest 2V DATE OF EXAM: 04/18/2023 2:42 PM COMPARISON: None TECHNIQUE: XR chest 2V Frontal and lateral views of the chest. CLINICAL INDICATION:Female, 77 years old with history of Weakness; FINDINGS: Lungs/Pleura: There is no evidence of pleural effusion, focal consolidation, or pneumothorax. Pulmonary vascularity: Unremarkable. Heart/mediastinum: Cardiomediastinal silhouette is enlarged. Musculoskeletal: Multiple level degenerative disc disease changes seen throughout the spine. Mild dex trocurvature of the thoracic spine. IMPRESSION: Cardiomegaly without evidence for acute process.
--- NOTE | 2023-04-18 14:49 | XR ---
EXAMINATION TYPE: XR knee complete RT DATE OF EXAM: 04/18/2023 CLINICAL HISTORY: Pain, fall. TECHNIQUE: Three views of the right knee are obtained. COMPARISON: 06/23/2022 FINDINGS: There is no acute fracture/dislocation evident in right knee. Moderate to severe narrowing patellofemoral compartment with mild to moderate spurring. Mild to moderate narrowing and mild spurr ing medial tibial femoral compartment. Small suprapatellar joint effusion. Overlying soft tissue is u nremarkable. IMPRESSION: 1. No acute fracture or dislocation. 2. Small suprapatellar joint effusion. 3. Mild to moderate tricompartmental osteoarthritic changes.
--- NOTE | 2023-04-18 15:16 | CT ---
EXAMINATION TYPE: CT brain cspine wo con CT DLP: 1408.6 mGycm, Automated exposure control for dose reduction was used. DATE OF EXAM: 04/18/2023 2:55 PM COMPARISON: CT brain C-spine 06/23/2022. CLINICAL INDICATION:Female, 77 years old with history of fall, head injury, inability to ambulate aft er; inability to ambulate, h/o parkinson's TECHNIQUE: Brain: Multiple axial CT images of the brain were obtained without IV contrast. Cspine: Axial CT images from the skull base to the inferior aspect of T2 we obtained without intraven ous contrast. Coronal and sagittal reformatted images were also reviewed. FINDINGS: Brain: Extra-axial spaces: No abnormal extra-axial fluid collections. Ventricular system: Within normal limits Cerebral parenchyma: Cerebral atrophy. No acute intraparenchymal hemorrhage or mass effect. The bardales -white junction is well differentiated. Scattered hypoattenuating areas are seen within the white mat ter. Ossific bilateral basal ganglia calcifications. Cerebellum: Unremarkable. Mass effect: No evidence of midline shift. Intracranial vasculature: Atherosclerotic calcifications of the intracranial vessels. Soft tissues: Normal. Calvarium/osseous structures: No depressed skull fracture. Paranasal sinuses and mastoid air cells: Clear. Visualized orbits: Bilateral aphakia Cervical spine: Fracture: No acute fracture. Previously questioned right L3 lamina fracture is unchanged without call us formation and is favored represent a nutrient foramen. Osseous structures: Multilevel degenerative disc disease changes with endplate spurring and disc oste ophyte complex's. Multilevel facet arthropathy. Diffuse bone demineralization. Vertebral alignment: Stable grade 1 anterolisthesis of C4 on C5. Spinal canal/Neural Foramina: Disc osteophyte complexes at C4-C5 and C6-C7 with at least mild spinal canal stenosis. Calcification of the posterior longitudinal ligament at C5-C6. Facet joint uncoverteb ral joint arthropathy scattered throughout the cervical spine with varying degrees of neural foramina l stenosis. Neck soft tissues: Prevertebral soft tissues are within normal limits. Other: The airway is patent. The lung apices are clear. Multinodular thyroid goiter with substernal e xtension of the left thyroid lobe redemonstrated.. IMPRESSION: 1. No acute intracranial process. 2. Nonspecific white matter changes, likely secondary to chronic small vessel ischemic disease. 3. No evidence of acute cervical spine fracture. 4. Mild multilevel degenerative disc disease. 5. Thyroid goiter.
--- NOTE | 2023-04-18 15:49 | US ---
EXAMINATION TYPE: US venous doppler duplex LE RT DATE OF EXAM: 04/18/2023 3:37 PM COMPARISON: Bilateral lower extremity venous ultrasound 01/05/2023 CLINICAL INDICATION: Female, 77 years old with history of swelling; Right knee pain SIDE PERFORMED: Right TECHNIQUE: The lower extremity deep venous system is examined utilizing real time linear array sonog erlinda with graded compression, doppler sonography and color-flow sonography. VESSELS IMAGED: Common Femoral Vein Deep Femoral Vein Greater Saphenous Vein * Femoral Vein Popliteal Vein Small Saphenous Vein * Proximal Calf Veins (* superficial vessels) Right Leg: Negative for DVT unable to attempt popiteal compression due to lack of mobility of cass ent. Color flow was seen and patent, 3.3 cm popiteal cyst seen Soft tissue edema identified. IMPRESSION: 1. No ultrasound evidence for deep venous thrombosis of the right lower extremity. 2. Gómez's cyst.
[2023-04-18] MEDS ORDERED: NALOXONE 0.4 MG/ML 1 ML VIAL IV PRN (16:32)
--- NOTE | 2023-04-18 16:32 | ED ---
Weakness HPI - General Chief complaint: Weakness Stated complaint: unable to ambulate Time Seen by Provider: 04/18/23 13:20 Source: EMS Mode of arrival: EMS Limitations: no limitations - History of Present Illness Initial comments: 77-year-old female with past medical history of Parkinson's who presents to the emergency department with inability to ambulate. States that she has had multiple falls recently. Her last fall was 3 weeks ago where she sustained trauma to her right leg. States she has had intense knee pain to where she cannot weight-bear. She has also had increasing swelling to that extremity. Patient did hit her head but denies losing consciousness. has attempted to help her use the restroom however patient has gotten increasingly weak and has been unable to a really completely for the past 4 days. She does have a his tory of Parkinson's. States she has been taking her medications as directed. Denies any dysuria, hematuria, difficulty voiding, black or bloody stools. No chest pain or shortness of breath. No fevers. No other alleviating, precipitating or modifying factors - Related Data Home Medications Medication Instructions Recorded Confirmed Carbidopa/Levodopa [Sinemet 25-100 1 tab PO QID@09,,17,21 01/04/19 04/18/23 mg] Levothyroxine Sodium [Synthroid] 50 mcg PO DAILY 01/04/19 04/18/23 Rosuvastatin Calcium [Crestor] 5 mg PO MOWEFR 01/04/19 04/18/23 Cholecalciferol [Vitamin D3 (25 50 mcg PO BID 06/23/22 04/18/23 Mcg = 1000 Iu)] clonazePAM 0.25 - 0.5 mg PO BID PRN 06/23/22 04/18/23 Entacapone [Comtan] 200 mg PO DAILY 04/18/23 04/18/23 Furosemide [Lasix] 40 mg PO DIRECTED 04/18/23 04/18/23 Losartan [Cozaar] 25 mg PO DAILY 04/18/23 04/18/23 Mirabegron [Myrbetriq] 50 mg PO HS 04/18/23 04/18/23 Venlafaxine HCl [Effexor] 37.5 mg PO DAILY 04/18/23 04/18/23 Allergies Allergy/AdvReac Type Severity Reaction Status Date / Time cheese AdvReac Abdominal Verified 04/18/23 15:09 Pain Review of Systems ROS Statement: Those systems with pertinent positive or pertinent negative responses have been documented in the HPI. ROS Other: All systems not noted in ROS Statement are negative. Past Medical History Past Medical History: Hyperlipidemia, Neurologic Disorder, Osteoarthritis (OA), Thyroid Disorder Additional Past Medical History / Comment(s): Parkinson's disease-left hand tremor History of Any Multi-Drug Resistant Organisms: None Reported Past Surgical History: Joint Replacement, Orthopedic Surgery, Tubal Ligation Additional Past Surgical History / Comment(s): left hip replaced, right total hip arthroplasty anterior approach 01/09/2019, deviated septum repaired, right CTS Past Anesthesia/Blood Transfusion Reactions: No Reported Reaction Past Psychological History: No Psychological Hx Reported Smoking Status: Never smoker Past Alcohol Use History: None Reported Past Drug Use History: None Reported - Past Family History Sister(s) Family Medical History: Cancer Additional Family Medical History / Comment(s): Sister. is alive at age 84 and is a survivor of breast cancer. Mother Family Medical History: Cancer, Deep Vein Thrombosis (DVT), Pulmonary Embolus Additional Family Medical History / Comment(s): Mother at age 82 from uterine cancer with metastatic disease to the lungs. Brother(s) Additional Family Medical History / Comment(s): Patient has one brother age 80 with fibromyalgia, osteoarthritis and macular degeneration. Patient does not have any children. General Exam Limitations: no limitations General appearance: alert, in no apparent distress Head exam: Present: atraumatic, normocephalic, normal inspection Eye exam: Present: normal appearance, PERRL, EOMI. Absent: scleral icterus, conjunctival injection, periorbital swelling ENT exam: Present: mucous membranes dry Neck exam: Present: normal inspection. Absent: tenderness, meningismus, lymphadenopathy Respiratory exam: Present: normal lung sounds bilaterally. Absent: respiratory distress, wheezes, rales, rhonchi, stridor Cardiovascular Exam: Present: regular rate GI/Abdominal exam: Present: soft, normal bowel sounds. Absent: distended, tenderness, guarding, rebound, rigid Extremities exam: Present: other (Tenderness to palpation of the right knee. There is pedal edema with the right leg being worse than the left. Suprapatel lar effusion) Back exam: Present: normal inspection Neurological exam: Present: alert, oriented X3, CN II-XII intact Psychiatric exam: Present: flat affect Skin exam: Present: warm, dry, intact, normal color. Absent: rash Course Vital Signs 04/18/23 04/18/23 04/18/23 13:16 14:00 15:00 Temperature 98.3 F Pulse Rate 83 84 87 Pulse Rate [ Pulse Oximetery ] Respiratory 18 13 24 Rate Blood Pressure 147/81 147/81 130/64 Blood Pressure [Right Arm] O2 Sat by Pulse 94 L Oximetry 04/18/23 04/18/23 20:05 21:34 Temperature 98.9 F Pulse Rate 86 Pulse Rate [ 101 H Pulse Oximetery ] Respiratory 22 19 Rate Blood Pressure 160/77 Blood Pressure 179/71 [Right Arm] O2 Sat by Pulse 98 94 L Oximetry Medical Decision Making - Medical Decision Making Was pt. sent in by a medical professional or institution (, PA, ANIMAL TRAINER, urgent care, hospital, or skilled nursing...) When possible be specific @ -No Did you speak to anyone other than the patient for history (EMS, parent, family, police, friend...)? What history was obtained from this source @ -I spoke with EMS and the patient's Did you review nursing and triage notes (agree or disagree)? Why? @ -I reviewed and agree with nursing and triage notes Were old charts reviewed (outside hosp., previous admission, EMS record, old E KG, old radiological studies, urgent care reports/EKG's, skilled nursing records)? Report findings @ -No old charts were reviewed Differential Diagnosis (chest pain, altered mental status, abdominal pain women, abdominal pain men, vaginal bleeding, weakness, fever, dyspnea, syncope, headache, dizziness, GI bleed, back pain, seizure, CVA, palpatations, mental hea lth, musculoskeletal)? @ -Differential Weakness: Hypoglycemia, shock, sepsis, hyponatremia, anemia, infection, [place], ETOH, adverse medicine reaction, overdose, stroke, this is not meant to be an all-inclusive list. EKG interpreted by me (3pts min.). @ -Yes and demonstrates sinus rhythm with a rate of 91. OK interval 178. QRS 93. QTC of 427. ST depression V4 through V6. No acute ST segment elevation X-rays interpreted by me (1pt min.). @ -yes, xray performed of the patient's right knee which demonstrates significant arthritis CT interpreted by me (1pt min.). @ -Yes, CT is performed of the patient's brain due to her history of inability to ambulate with a fall U/S interpreted by me (1pt. min.). @ -None done What testing was considered but not performed or refused? (CT, X-rays, U/S, labs)? Why? @ -None What meds were considered but not given or refused? Why? @ -None Did you discuss the management of the patient with other professionals (professionals i.e. , PA, ANIMAL TRAINER, lab, RT, psych nurse, adoption social worker, immigration lawyer, teacher, medical officer, block and case maker)? Give summary @ -Spoke with Dr. modi who will admit the patient Was smoking cessation discussed for >3mins.? @ -No Was critical care preformed (if so, how long)? @ -No Were there social determinants of health that impacted care today? How? (Homelessness, low income, unemployed, alcoholism, drug addiction, transportation, low edu. Level, literacy, decrease access to med. care, snf, rehab)? @ -No Was there de-escalation of care discussed even if they declined (Discuss DNR or withdrawal of care, Hospice)? DNR status @ -No What co-morbidities impacted this encounter? (DM, HTN, Smoking, COPD, CAD, Cancer, CVA, ARF, Chemo, Hep., AIDS, mental health diagnosis, sleep apnea, morbid obesity)? @ -Parkinson's Was patient admitted / discharged? Hospital course, mention meds given and route, prescriptions, significant lab abnormalities, going to OR and other pertinent info. @ -Upon arrival patient is placed into room 8. A thorough history and physical exam was performed. Patient attempts to give a urine sample however she does defecate in the specimen. When the patient is assisted to a bedside commode it does take two nurses to assist the patient. IV was established and laboratory studies are conducted. Chest x-ray and knee x-ray are performed. I did CT the patient's head as she has been unable to ambulate since her fall with head injury. I did discuss results with the patient. As the patient is unable to ambulate on her own and likely requires rehab I did recommend admission to the hospital. Orthopedics and neurology will be placed on consult. We are still awaiting a urine specimen at this time. Patient was agreeable to admission. Spoke with Dr. modi who will admit the patient Undiagnosed new problem with uncertain prognosis? @ -Yes Drug Therapy requiring intensive monitoring for toxicity (Heparin, Nitro, Insulin, Cardizem)? @ -No Were any procedures done? @ -No Diagnosis/symptom? @ -Acute weakness, inability to ambulate, right leg pain, right knee osteoarthritis, acute UTI Acute, or Chronic, or Acute on Chronic? @ -Acute Uncomplicated (without systemic symptoms) or Complicated (systemic symptoms)? @ -Complicated Side effects of treatment? @ -No Exacerbation, Progression, or Severe Exacerbation? @ -No Poses a threat to life or bodily function? How? (Chest pain, USA, AZ, pneumonia, PE, COPD, DKA, ARF, appy, cholecystitis, CVA, Diverticulitis, Homicidal, Suicidal, threat to staff... and all critical care pts) @ -No - Lab Data Result diagrams: 04/18/23 14:03 04/18/23 14:03 Lab Results 04/18/23 04/18/23 04/18/23 Range/Units 14:03 14:03 14:03 WBC 9.1 (3.8-10.6) k/uL RBC 4.56 (3.80-5.40) m/uL Hgb 13.5 (11.4-16.0) gm/dL Hct 41.6 (34.0-46.0) % MCV 91.2 (80.0-100.0) fL MCH 29.6 (25.0-35.0) pg MCHC 32.5 (31.0-37.0) g/dL RDW 12.0 (11.5-15.5) % Plt Count 350 (150-450) k/uL MPV 7.4 Neutrophils % 73 % Lymphocytes % 18 % Monocytes % 7 % Eosinophils % 1 % Basophils % 0 % Neutrophils # 6.6 (1.3-7.7) k/uL Lymphocytes # 1.6 (1.0-4.8) k/uL Monocytes # 0.7 (0-1.0) k/uL Eosinophils # 0.1 (0-0.7) k/uL Basophils # 0.0 (0-0.2) k/uL PT 10.8 (9.0-12.0) sec INR 1.0 (<1.2) APTT 23.0 (22.0-30.0) sec Sodium 142 (137-145) mmol/L Potassium 3.3 L (3.5-5.1) mmol/L Chloride 106 (98-107) mmol/L Carbon Dioxide 31 H (22-30) mmol/L Anion Gap 5 mmol/L BUN 13 (7-17) mg/dL Creatinine 0.59 (0.52-1.04) mg/dL Est GFR (CKD-EPI)AfAm >90 (>60 ml/min/1.73 sqM) Est GFR (CKD-EPI)NonAf 88 (>60 ml/min/1.73 sqM) Glucose 107 H (74-99) mg/dL Plasma Lactic Acid Ray (0.7-2.0) mmol/L Calcium 9.1 (8.4-10.2) mg/dL Magnesium 2.0 (1.6-2.3) mg/dL Total Bilirubin 0.7 (0.2-1.3) mg/dL AST 25 (14-36) U/L ALT 8 (4-34) U/L Alkaline Phosphatase 95 (38-126) U/L Troponin I (0.000-0.034) ng/mL NT-Pro-B Natriuret Pep 82 pg/mL Total Protein 6.5 (6.3-8.2) g/dL Albumin 3.7 (3.5-5.0) g/dL TSH 0.842 (0.465-4.680) mIU/L Urine Color Urine Appearance (Clear) Urine pH (5.0-8.0) Ur Specific [place] (1.001-1.035) Urine Protein (Negative) Urine Glucose (UA) (Negative) Urine Ketones (Negative) Urine Blood (Negative) Urine Nitrite (Negative) Urine Bilirubin (Negative) Urine Urobilinogen (<2.0) mg/dL Ur Leukocyte Esterase (Negative) Urine RBC (0-5) /hpf Urine WBC (0-5) /hpf Urine Bacteria (None) /hpf Urine Mucus (None) /hpf 04/18/23 04/18/23 04/18/23 Range/Units 14:03 14:03 14:03 WBC (3.8-10.6) k/uL RBC (3.80-5.40) m/uL Hgb (11.4-16.0) gm/dL Hct (34.0-46.0) % MCV (80.0-100.0) fL MCH (25.0-35.0) pg MCHC (31.0-37.0) g/dL RDW (11.5-15.5) % Plt Count (150-450) k/uL MPV Neutrophils % % Lymphocytes % % Monocytes % % Eosinophils % % Basophils % % Neutrophils # (1.3-7.7) k/uL Lymphocytes # (1.0-4.8) k/uL Monocytes # (0-1.0) k/uL Eosinophils # (0-0.7) k/uL Basophils # (0-0.2) k/uL PT (9.0-12.0) sec INR (<1.2) APTT (22.0-30.0) sec Sodium (137-145) mmol/L Potassium (3.5-5.1) mmol/L Chloride (98-107) mmol/L Carbon Dioxide (22-30) mmol/L Anion Gap mmol/L BUN (7-17) mg/dL Creatinine (0.52-1.04) mg/dL Est GFR (CKD-EPI)AfAm (>60 ml/min/1.73 sqM) Est GFR (CKD-EPI)NonAf (>60 ml/min/1.73 sqM) Glucose (74-99) mg/dL Plasma Lactic Acid Ray 1.0 (0.7-2.0) mmol/L Calcium (8.4-10.2) mg/dL Magnesium (1.6-2.3) mg/dL Total Bilirubin (0.2-1.3) mg/dL AST (14-36) U/L ALT (4-34) U/L Alkaline Phosphatase (38-126) U/L Troponin I <0.012 (0.000-0.034) ng/mL NT-Pro-B Natriuret Pep pg/mL Total Protein (6.3-8.2) g/dL Albumin (3.5-5.0) g/dL TSH (0.465-4.680) mIU/L Urine Color Light Red Urine Appearance Turbid H (Clear) Urine pH 6.5 (5.0-8.0) Ur Specific [place] 1.020 (1.001-1.035) Urine Protein 1+ H (Negative) Urine Glucose (UA) Negative (Negative) Urine Ketones 1+ H (Negative) Urine Blood Small H (Negative) Urine Nitrite Positive H (Negative) Urine Bilirubin Negative (Negative) Urine Urobilinogen <2.0 (<2.0) mg/dL Ur Leukocyte Esterase Large H (Negative) Urine RBC 10 H (0-5) /hpf Urine WBC >182 H (0-5) /hpf Urine Bacteria Many H (None) /hpf Urine Mucus Rare H (None) /hpf Disposition Clinical Impression: Parkinsonism, Multiple falls, Right knee pain, Inability to ambulate due to ri ght knee Disposition: ADMITTED IP TO THIS [facility] Condition: Stable Is patient prescribed a controlled substance at d/c from ED?: No Time of Disposition: 16:32 Decision to Admit Reason: Admit from EC Decision Date: 04/18/23 Decision Time: 16:32
[2023-04-18] MEDS ORDERED: KETOROLAC 15 MG/ML 1 ML VIAL IVP PRN (16:37)
[2023-04-18 16:42] LABS: Appearance,Urine Turbid (Clear); Bacteria,Urine Many /hpf; Bilirubin,Urine Negative (Negative); Blood,Urine Small (Negative); Color,Urine Light Red; Glucose,Urine (UA) Negative (Negative); Ketones,Urine 1+ (Negative); Leukocyte Esterase,Urine Large (Negative); Mucus,Urine Rare /hpf; Nitrite,Urine Positive (Negative); PH, Urine 6.5 (5.0-8.0); Protein,Urine 1+ (Negative); RBC,Urine 10 /hpf (0-5); Urobilinogen,Urine <2.0 mg/dL (<2.0); WBC,Urine >182 /hpf (0-5)
[2023-04-18] MEDS ORDERED: QUEtiapine 25 MG TAB PO ONE (22:33)
[2023-04-18] MEDS: ACETAMINOPHEN TAB 325 MG TAB PO PRN (22:51)
[2023-04-19] MEDS: LEVOTHYROXINE 50 MCG TAB PO SCH (06:04)
--- NOTE | 2023-04-19 09:03 | P.CNOR ---
History of Present Illness - [facility] Consult date: 04/19/23 Consult reason: joint pain (Right knee pain) History of present illness: Patient is a 73-year-old female who presented to [facility] on 04/18/2023 due to generalized weakness on with difficulty with ambulation. Apparently the patient has noticed symptoms over the last 2 weeks and progressively getting worse. Patient's is having a very difficult time eating dinner assistance with ambulation so we brought her to the hospital for further evaluation. Patient does admit to frequent falls over the last few weeks, she admits to worsening right knee pain. Multiple lab tests and imaging test were done. Patient was admitted under internal medicine, our orthopedic team was consulted. Initial labs today demonstrate likely UTI, she has been started on IV antibiotics. Patient was evaluated today at bedside, she was sleeping upon arrival. She was arousable, she did seem a little bit infused today at bedside. She states that the pain in the right knee has been going on for quite some time, she feels that the falls have made it worse. She denies any previous surgery to the right knee. She does have a history of bilateral total hip arthroplasties, she denies any acute pain of the right or left hip. Patient denies any left knee pain at this time. Patient denies any bilateral upper extremity discomfort at this time. She denies any numbness or tingling to the bilateral lower extremities or bilateral upper extremities. She denies any loss of bowl or bladder function at this time. She denies any numbness or tingling to the general peroneal region. Patient does live at home with her , she does use a cane and walker occasionally for ambulation. She does have a history of Parkinson's. Review of Systems Constitutional: Reports as per HPI Past Medical History Past Medical History: Hyperlipidemia, Neurologic Disorder, Osteoarthritis (OA), Thyroid Disorder Additional Past Medical History / Comment(s): Parkinson's disease-left hand tremor History of Any Multi-Drug Resistant Organisms: None Reported Past Surgical History: Joint Replacement, Orthopedic Surgery, Tubal Ligation Additional Past Surgical History / Comment(s): left hip replaced, right total hip arthroplasty anterior approach 01/09/2019, deviated septum repaired, right CTS Past Anesthesia/Blood Transfusion Reactions: No Reported Reaction Past Psychological History: No Psychological Hx Reported Smoking Status: Never smoker Past Alcohol Use History: None Reported Past Drug Use History: None Reported - Past Family History Sister(s) Family Medical History: Cancer Additional Family Medical History / Comment(s): Sister. is alive at age 84 and is a survivor of breast cancer. Mother Family Medical History: Cancer, Deep Vein Thrombosis (DVT), Pulmonary Embolus Additional Family Medical History / Comment(s): Mother at age 82 from uterine cancer with metastatic disease to the lungs. Brother(s) Additional Family Medical History / Comment(s): Patient has one brother age 80 with fibromyalgia, osteoarthritis and macular degeneration. Patient does not have any children. Medications and Allergies Home Medications Medication Instructions Recorded Confirmed Type Carbidopa/Levodopa [Sinemet 25-100 1 tab PO QID@09,13,17,21 01/04/19 04/18/23 History mg] Levothyroxine Sodium [Synthroid] 50 mcg PO DAILY 01/04/19 04/18/23 History Rosuvastatin Calcium [Crestor] 5 mg PO MOWEFR 01/04/19 04/18/23 History Cholecalciferol [Vitamin D3 (25 50 mcg PO BID 06/23/22 04/18/23 History Mcg = 1000 Iu)] clonazePAM 0.25 - 0.5 mg PO BID PRN 06/23/22 04/18/23 History Entacapone [Comtan] 200 mg PO DAILY 04/18/23 04/18/23 History Furosemide [Lasix] 40 mg PO DIRECTED 04/18/23 04/18/23 History Losartan [Cozaar] 25 mg PO DAILY 04/18/23 04/18/23 History Mirabegron [Myrbetriq] 50 mg PO HS 04/18/23 04/18/23 History Venlafaxine HCl [Effexor] 37.5 mg PO DAILY 04/18/23 04/18/23 History Allergies Allergy/AdvReac Type Severity Reaction Status Date / Time cheese AdvReac Abdominal Verified 04/18/23 15:09 Pain Physical Examination Right lower extremity: No obvious open lesions or sores are visualized throughout the extremity. There is no significant areas of erythema or soft tissue swelling. There is a mild fusion present on the knee Active and passive range of motion of the knee reproduces no severe pain. Patient is able to flex to 110, she lacks about 3 of full extension. The knee is stable to both varus and valgus stress. Logroll maneuver reproduces no pain Negative straight leg raise She demonstrates tenderness with palpation of the medial joint line, she is nontender along the lateral joint, nontender to the medial and lateral patellar facet Calf is soft, no tenderness with palpation Plantar flexion, dorsiflexion, EHL, FHL are intact Sensory exam to light touch is intact throughout the extremity, skin is warm to touch Results - Labs Labs: Abnormal Lab Results - Last 24 Hours (Table) 04/18/23 04/18/23 Range/Units 14:03 14:03 Potassium 3.3 L (3.5-5.1) mmol/L Carbon Dioxide 31 H (22-30) mmol/L Glucose 107 H (74-99) mg/dL Urine Appearance Turbid H (Clear) Urine Protein 1+ H (Negative) Urine Ketones 1+ H (Negative) Urine Blood Small H (Negative) Urine Nitrite Positive H (Negative) Ur Leukocyte Esterase Large H (Negative) Urine RBC 10 H (0-5) /hpf Urine WBC >182 H (0-5) /hpf Urine Bacteria Many H (None) /hpf Urine Mucus Rare H (None) /hpf H & H 04/18/23 Range/Units 14:03 Hgb 13.5 (11.4-16.0) gm/dL Hct 41.6 (34.0-46.0) % Coagulation 04/18/23 Range/Units 14:03 INR 1.0 (<1.2) Result Diagrams: 04/18/23 14:03 04/18/23 14:03 - Diagnostic results Knee x-ray: report reviewed, image reviewed (Report and images were reviewed of the right knee. No acute fractures or dislocations. Osteoarthritic findings to include loss of joint space and osteophyte formation of the medial joint and patellofemoral joint) Assessment and Plan Assessment: Right knee pain Right knee osteoarthritis Difficulty with ambulation Urinary tract infection Generalized fatigue Other medical comorbidities Plan: I was able to discuss the case, this including the physical exam findings and imaging studies and attending Dr. Hansen. No emergent orthopedic surgical intervention warranted at this time Discuss the patient we would like to proceed with conservative measures, this including icing and elevating along with use of Tylenol or NSAIDs Weight-bear as tolerated with walker PT/OT evaluations recommended DVT prophylaxis per primary medical service Other medical radiation tech recommendations appreciated Please contact our service with any further questions regarding this patient, patient may follow-up in the outpatient setting as needed Time with Patient: Less than 30
[2023-04-19] MEDS ORDERED: ONDANSETRON 4 MG/2 ML VIAL IVP PRN (09:29)
[2023-04-19] MEDS ORDERED: PANTOPRAZOLE 40 MG/10 ML VIAL IVP SCH (09:30)
[2023-04-19] MEDS: VENLAFAXINE HCL 37.5 MG TAB PO SCH (09:56)
[2023-04-19] MEDS: LOSARTAN 25 MG TAB PO SCH (09:56)
[2023-04-19] MEDS: CARBIDOPA-LEVODOPA 25-100 MG 1 EACH TAB PO SCH ×4 (09:56→20:11)
[2023-04-19] MEDS: ENTACAPONE 200 MG TAB PO SCH (09:56)
[2023-04-19 11:10] LABS: Basophils # (A) 0.05 X 10*3/uL (0.00-0.10); Basophils % (A) 0.5 %; Eosinophils # (A) 0.22 X 10*3/uL (0.04-0.35); Eosinophils % (A) 2.1 %; HCT 42.2 % (37.2-46.3); HGB 13.1 d/dL (12.0-15.0); Lymphocytes # (A) 2.09 X 10*3/uL (0.90-5.00); MCH 29.4 pg (27.0-32.0); MCV 94.8 FL (80.0-97.0); Mean Platelet Volume 9.6 FL (9.5-12.2); Monocytes # (A) 0.98 X 10*3/uL (0.20-1.00); Monocytes % (A) 9.4 %; NRBC Per 100 WBC 0 X 10*3/uL (0.00-0.01); Neutrophils # (A) 7.08 X 10*3/uL (1.80-7.70); Neutrophils % (A) 67.8 %; Platelet Count 353 X 10*3/uL (140-440); RBC 4.45 X 10*6/uL (4.10-5.20); RDW 12.1 % (11.5-14.5); WBC 10.44 X 10*3/uL (4.50-10.00)
[2023-04-19 11:19] LABS: BUN/Creat Ratio 15.29 Ratio (12.00-20.00); Blood Urea Nitrogen 10.7 mg/dL (9.0-27.0); Calcium 8.9 mg/dL (8.7-10.3); Carbon Dioxide 26.2 mmol/L (21.6-31.8); Chloride 108 mmol/L (96-109); Glucose 81 mg/dL (70-110); Potassium 3.2 mmol/L (3.5-5.5); Sodium 146 mmol/L (135-145)
--- NOTE | 2023-04-19 15:22 | P.HPIM ---
History of Present Illness H&P Date: 04/19/23 This is a 77 year old female with medical history of hyperlipidemia, arthritis, thyroid disorder, Parkinson's disease with a left hand tremor, former smoker. Patient presents to the with concern for inability to ambulate with multiple falls. Most recent fall was 3 days ago where she has trauma to her right knee and continues with intense right knee pain to where she cannot bear weight. There is also increased swelling to that extremity. Denies syncopal episode or loss of consciousness. Denies chest pain, denies shortness of breath. Lab work reveals no white count, normal hemoglobin, potassium low at 3.3, urinalysis reveals probably acute UTI with positive nitrates, large leukocyte esterase and many bacteria. Head cervical spine CT reveals nonspecific white matter change, no acute cervical spinal fracture, there is multilevel disc degeneration and thyroid goiter. Venous doppler on the right shows no DVT there is a Bakers Cyst present. Right knee xray reveals small suprapatellar joint effusion and mild to moderate tricompartemental osteoarthritic changes. Orthopedics was consulted for further evaluation. REVIEW OF SYSTEMS: CONSTITUTIONAL: No fever, no malaise, Feels fatigued and slightly confused. HEENT: No recent visual problems or hearing problems. Denied any sore throat. CARDIOVASCULAR: No chest pain, orthopnea, PND, no palpitations, no syncope. PULMONARY: No shortness of breath, no cough, no hemoptysis. GASTROINTESTINAL: No diarrhea, no nausea, no vomiting, no abdominal pain. Had bloody urine. NEUROLOGICAL: No headaches, no weakness, no numbness. HEMATOLOGICAL: Denies any bleeding or petechiae. GENITOURINARY: Denies any burning micturition, frequency, or urgency. MUSCULOSKELETAL/RHEUMATOLOGICAL: Denies any joint pain, swelling. Reports right knee pain. ENDOCRINE: Denies any polyuria or polydipsia. The rest of the 14-point review of systems is negative. PHYSICAL EXAMINATION: GENERAL: The patient is alert and oriented x3, not in any acute distress. Well developed, well nourished. HEENT: Pupils are round and equally reacting to light. EOMI. No scleral icterus. No conjunctival pallor. Normocephalic, atraumatic. No pharyngeal erythema. No th yromegaly. CARDIOVASCULAR: S1 and S2 present. No murmurs, rubs, or gallops. PULMONARY: Chest is clear to auscultation, no wheezing or crackles. ABDOMEN: Soft, nontender, nondistended, normoactive bowel sounds. No palpable organomegaly. MUSCULOSKELETAL: No joint swelling or deformity. EXTREMITIES: No cyanosis, clubbing, or pedal edema. NEUROLOGICAL: Gross neurological examination did not reveal any focal deficits. Weakness SKIN: No rashes. Assessment and Plan Acute urinary tract infection with sepsis present on admission Hematuria likely due to the acute UTI monitor closely Right knee pain with imaging revealing joint effusion Multiple falls at home with trauma, patient did hit her head Diffuse generalized weakness and inability to ambulate History of Parkinson's disorder with left hand tremor Thyroid disorder with thyroid goiter on imaging Osteoarthritis Hyperlipidemia Hx Former smoker GI DVT Full Code Plan Continue empiric antibiotics pending urine culture PT/OT and discharge planning Orthopedics evaluation patient is weight bearing as tolerated and recommending conservative management at this time The impression and plan of care has been dictated by Maddie Riggins Nurse Practitioner as directed. Dr. Tika MD I have performed a history and physical examination and medical decision making of this patient, discussed the same with the dictator, and agree with the dictators assessment and plan as written, documented as a scribe. Based on total visit time, I have performed more than 50% of this visit. Past Medical History Past Medical History: Hyperlipidemia, Neurologic Disorder, Osteoarthritis (OA), Thyroid Disorder Additional Past Medical History / Comment(s): Parkinson's disease-left hand tremor History of Any Multi-Drug Resistant Organisms: None Reported Past Surgical History: Joint Replacement, Orthopedic Surgery, Tubal Ligation Additional Past Surgical History / Comment(s): left hip replaced, right total hip arthroplasty anterior approach 01/09/2019, deviated septum repaired, right CTS Past Anesthesia/Blood Transfusion Reactions: No Reported Reaction Past Psychological History: No Psychological Hx Reported Smoking Status: Never smoker Past Alcohol Use History: None Reported Past Drug Use History: None Reported - Past Family History Sister(s) Family Medical History: Cancer Additional Family Medical History / Comment(s): Sister. is alive at age 84 and is a survivor of breast cancer. Mother Family Medical History: Cancer, Deep Vein Thrombosis (DVT), Pulmonary Embolus Additional Family Medical History / Comment(s): Mother at age 82 from uterine cancer with metastatic disease to the lungs. Brother(s) Additional Family Medical History / Comment(s): Patient has one brother age 80 with fibromyalgia, osteoarthritis and macular degeneration. Patient does not have any children. Medications and Allergies Home Medications Medication Instructions Recorded Confirmed Type Carbidopa/Levodopa [Sinemet 25-100 1 tab PO QID@09,13,17,21 01/04/19 04/18/23 History mg] Levothyroxine Sodium [Synthroid] 50 mcg PO DAILY 01/04/19 04/18/23 History Rosuvastatin Calcium [Crestor] 5 mg PO MOWEFR 01/04/19 04/18/23 History Cholecalciferol [Vitamin D3 (25 50 mcg PO BID 06/23/22 04/18/23 History Mcg = 1000 Iu)] clonazePAM 0.25 - 0.5 mg PO BID PRN 06/23/22 04/18/23 History Entacapone [Comtan] 200 mg PO DAILY 04/18/23 04/18/23 History Furosemide [Lasix] 40 mg PO DIRECTED 04/18/23 04/18/23 History Losartan [Cozaar] 25 mg PO DAILY 04/18/23 04/18/23 History Mirabegron [Myrbetriq] 50 mg PO HS 04/18/23 04/18/23 History Venlafaxine HCl [Effexor] 37.5 mg PO DAILY 04/18/23 04/18/23 History Allergies Allergy/AdvReac Type Severity Reaction Status Date / Time cheese AdvReac Abdominal Verified 04/18/23 15:09 Pain Physical Exam Vitals: Vital Signs Temp Pulse Pulse Resp BP BP Pulse Ox 04/19/23 09:00 96 04/19/23 02:00 98.2 F 71 16 139/71 95 04/18/23 21:34 98.9 F 101 H 19 179/71 94 L 04/18/23 20:05 86 22 160/77 98 04/18/23 15:00 87 24 130/64 04/18/23 14:00 84 13 147/81 04/18/23 13:16 98.3 F 83 18 147/81 94 L FiO2 04/19/23 09:00 21 04/19/23 02:00 04/18/23 21:34 04/18/23 20:05 04/18/23 15:00 04/18/23 14:00 04/18/23 13:16 Intake and Output 04/18/23 04/19/23 04/19/23 22:59 06:59 14:59 Output Total 130 300 Balance -130 -300 Output: Urine 300 Post Void Residual 130 Other: Voiding Method External Catheter # Voids 1 Weight 81.647 kg Results CBC & Chem 7: 04/19/23 05:48 04/19/23 05:48 Labs: Abnormal Lab Results - Last 24 Hours (Table) 04/18/23 04/18/23 Range/Units 14:03 14:03 Potassium 3.3 L (3.5-5.1) mmol/L Carbon Dioxide 31 H (22-30) mmol/L Glucose 107 H (74-99) mg/dL Urine Appearance Turbid H (Clear) Urine Protein 1+ H (Negative) Urine Ketones 1+ H (Negative) Urine Blood Small H (Negative) Urine Nitrite Positive H (Negative) Ur Leukocyte Esterase Large H (Negative) Urine RBC 10 H (0-5) /hpf Urine WBC >182 H (0-5) /hpf Urine Bacteria Many H (None) /hpf Urine Mucus Rare H (None) /hpf Thrombosis Risk Factor Assmnt - Choose All That Apply Any of the Below Risk Factors Present?: Yes Each Factor Represents 1 point: Obesity (BMI >25), Swollen legs (current) Other Risk Factors: Yes Each Risk Factor Represents 3 Points: Age 75 years or older Other congenital or acquired thrombophilia - If yes, enter type in comment: No Thrombosis Risk Factor Assessment Total Risk Factor Score: 5 Thrombosis Risk Factor Assessment Level: High Risk
[2023-04-19] MEDS: CHOLECALCIFEROL 25 MCG (1000 IU) TABLET PO SCH (20:11)
[2023-04-19] MEDS: ACETAMINOPHEN TAB 325 MG TAB PO PRN (20:12)
[2023-04-20] MEDS: LEVOTHYROXINE 50 MCG TAB PO SCH (06:05)
[2023-04-20] MEDS: ENTACAPONE 200 MG TAB PO SCH (09:16)
[2023-04-20] MEDS: CHOLECALCIFEROL 25 MCG (1000 IU) TABLET PO SCH ×2 (09:16→20:42)
[2023-04-20] MEDS: CARBIDOPA-LEVODOPA 25-100 MG 1 EACH TAB PO SCH ×4 (09:17→20:42)
[2023-04-20] MEDS: VENLAFAXINE HCL 37.5 MG TAB PO SCH (09:17)
[2023-04-20] MEDS: LOSARTAN 25 MG TAB PO SCH (09:17)
[2023-04-20] MEDS: PANTOPRAZOLE 40 MG TABLET PO SCH (09:17)
[2023-04-20] MEDS ORDERED: LOSARTAN 25 MG TAB PO STA (09:36)
[2023-04-20] MEDS ORDERED: ATORVASTATIN 10 MG TAB PO SCH (10:00)
--- NOTE | 2023-04-20 10:30 | P.CNNES ---
History of Present Illness Consult date: 04/19/23 Requesting physician: Kitty Stroud Reason for Consult: Parkinsons, inability to ambulate History of Present Illness: Patient is a 77-year-old female came to the hospital yesterday by ambulance at 1:15 PM for frequent falls. Patient has been diagnosed with Parkinson's disease since 2018, follows up with Dr. Faith in the last time she was seen about 3 months ago. Patient was initially placed on Azilect, but produced headaches, sore throat nausea and it was too expensive. She was then placed on Sinemet, currently taking 25/100, 4 times a day. Also on Comtan 200 mg once daily. Patient states that she is very sensitive, and higher dose of Comtan produces side effects. Patient came to the hospital because of frequent falls. Patient either uses walker, or a cane. She lives with her . Patient states that she had 3 back falls in the last 6 weeks. One of the falls occurred when she tripped on her right. The other fall occurred when she tripped on her neck warmer. Both of these falls were to the sideways. The third fall occurred for no obvious reason. She was tending, looking at the closet inside. She was tending straight, turned her neck and shoulder a little and she felt losing balance backwards and she fell. She usually can control the fall but not this time. Apparently all these 3 falls occurred when she was not using her assistive device. Vital signs on arrival blood pressure 147/81, pulse rate 83, temperature 98.3. Blood test shows normal CBC, PT/PTT, normal chem 20, with potassium 3.3. Troponin negative. TSH normal. UA shows positive nitrite, large amount of leukocyte Estrace and > 182 WBCs and many bacteria. C. difficile negative. X- ray of the knee revealed no acute fracture or dislocation. Small suprapatellar joint effusion. [id number] tricompartmental osteo-arthritic changes. Chest x-ray revealed cardiomegaly without evidence for acute process. CT head revealed no acute intracranial process. Nonspecific white matter changes, likely secondary to chronic small vessel ischemic disease. I personally reviewed CT head, agree with the findings. CT of the cervical spine showed no evidence of acute cervical spine fracture. Mild multilevel degenerative disc disease. Thyroid goiter. Ultrasound of the right lower extremity was negative for DVT. Gómez's cyst. EKG shows sinus rhythm. Patient denies hypertension or diabetes. She has never smoked, does not drink alcohol at least for 45 years. Review of Systems Constitutional: Denies chills, Denies fever Eyes: denies blurred vision, denies pain Past Medical History Past Medical History: Hyperlipidemia, Neurologic Disorder, Osteoarthritis (OA), Thyroid Disorder Additional Past Medical History / Comment(s): Parkinson's disease-left hand tremor History of Any Multi-Drug Resistant Organisms: None Reported Past Surgical History: Joint Replacement, Orthopedic Surgery, Tubal Ligation Additional Past Surgical History / Comment(s): left hip replaced, right total hip arthroplasty anterior approach 01/09/2019, deviated septum repaired, right CTS Past Anesthesia/Blood Transfusion Reactions: No Reported Reaction Past Psychological History: No Psychological Hx Reported Smoking Status: Never smoker Past Alcohol Use History: None Reported Past Drug Use History: None Reported - Past Family History Sister(s) Family Medical History: Cancer Additional Family Medical History / Comment(s): Sister. is alive at age 84 and is a survivor of breast cancer. Mother Family Medical History: Cancer, Deep Vein Thrombosis (DVT), Pulmonary Embolus Additional Family Medical History / Comment(s): Mother at age 82 from uterine cancer with metastatic disease to the lungs. Brother(s) Additional Family Medical History / Comment(s): Patient has one brother age 80 with fibromyalgia, osteoarthritis and macular degeneration. Patient does not have any children. Medications and Allergies Home Medications Medication Instructions Recorded Confirmed Type Carbidopa/Levodopa [Sinemet 25-100 1 tab PO QID@09,13,17,21 01/04/19 04/18/23 History mg] Levothyroxine Sodium [Synthroid] 50 mcg PO DAILY 01/04/19 04/18/23 History Rosuvastatin Calcium [Crestor] 5 mg PO MOWEFR 01/04/19 04/18/23 History Cholecalciferol [Vitamin D3 (25 50 mcg PO BID 06/23/22 04/18/23 History Mcg = 1000 Iu)] clonazePAM 0.25 - 0.5 mg PO BID PRN 06/23/22 04/18/23 History Entacapone [Comtan] 200 mg PO DAILY 04/18/23 04/18/23 History Furosemide [Lasix] 40 mg PO DIRECTED 04/18/23 04/18/23 History Losartan [Cozaar] 25 mg PO DAILY 04/18/23 04/18/23 History Mirabegron [Myrbetriq] 50 mg PO HS 04/18/23 04/18/23 History Venlafaxine HCl [Effexor] 37.5 mg PO DAILY 04/18/23 04/18/23 History Allergies Allergy/AdvReac Type Severity Reaction Status Date / Time cheese AdvReac Abdominal Verified 04/18/23 15:09 Pain Physical Examination - Vital Signs Vital Signs: Vital Signs Temp Pulse Resp BP Pulse Ox FiO2 04/19/23 15:00 97.8 F 81 16 102/62 95 04/19/23 09:00 96 21 04/19/23 07:00 98.2 F 71 18 132/64 97 04/19/23 02:00 98.2 F 71 16 139/71 95 04/18/23 21:34 98.9 F 101 H 19 179/71 94 L Intake and Output 04/19/23 04/19/23 04/19/23 06:59 14:59 22:59 Output Total 300 Balance -300 Output: Urine 300 Other: Voiding Method External Catheter External Catheter # Voids 1 # Bowel Movements 1 Patient is an elderly female, very pleasant, in no acute distress. Patient is alert awake oriented to time place and person. Speech and language functions are normal. Patient can name and repeat very well. No aphasia or dysarthria. Attention, concentration and fund of knowledge is adequate. On cranial nerve examination, pupils are equal, round and reacting to light, visual ramirez are full on confrontation, with no neglect on double simultaneous stimulation. Extraocular muscles are intact with no nystagmus. Face is symmetric, tongue protrudes to the midline. Palatal elevation and sensation normal, hearing and shoulder shrug normal, facial sensation normal. Patient does have parkinsonian facies. On muscle strength testing, there is no pronator drift and the strength is normal in arms and legs distally and proximally. Deep tendon reflexes are symmetric 2 at the biceps, 2 brachioradialis, 1+ at the knees, plantars downgoing bilaterally. Sensory to touch is equal with no neglect on double simultaneous stimulation. Cerebellar function showed no ataxia for [id number] testing, although patient has fine tremors for mganuj-yu-lfjy testing, mild on the right, [id number] left. No tremors at rest. Mild fine tremors of outstretched hands. No dysdiadochokinesia. No ataxia for ugma-cr-ejzq testing on either side. Tone is mildly increased bilaterally with some cogwheeling. Patient does appear bradykinetic. Gait deferred.. On general examination, there is no carotid bruit or murmur, S1-S2 audible. Chest is clear on consultation. Abdomen is soft nontender. No organomegaly, bowel sounds present. Peripheral pulses are present. Patient has moderate peripheral edema. Results - Laboratory Findings CBC and BMP: 04/19/23 05:48 04/19/23 05:48 Abnormal Lab Findings: Abnormal Labs 04/18/23 04/18/23 04/19/23 14:03 14:03 05:48 WBC 10.44 H MCHC 31.0 L Sodium Potassium 3.3 L Carbon Dioxide 31 H Glucose 107 H Urine Appearance Turbid H Urine Protein 1+ H Urine Ketones 1+ H Urine Blood Small H Urine Nitrite Positive H Ur Leukocyte Esterase Large H Urine RBC 10 H Urine WBC >182 H Urine Bacteria Many H Urine Mucus Rare H 04/19/23 05:48 WBC MCHC Sodium 146 H Potassium 3.2 L Carbon Dioxide Glucose Urine Appearance Urine Protein Urine Ketones Urine Blood Urine Nitrite Ur Leukocyte Esterase Urine RBC Urine WBC Urine Bacteria Urine Mucus Assessment and Plan Assessment: * Parkinson's disease, stable * Frequent falls, either due to tripping or losing balance, likely due to Parkinson's disease. All falls occurred when she was not using the assistive device. * Possible UTI. Plan: * Patient's Parkinson's disease is fairly well controlled. Patient will be continued on her Sinemet 25/100, 1 tablet 4 times a day, and Comtan 200 mg once daily. I will not make any changes in her Parkinson's medication. Patient has an appointment with her neurologist coming up. * Patient was strongly recommended to use assistive device either cane or walker all the time to prevent further falls. * Patient has UTI, currently on ceftriaxone 1 g every 24 hours. * TSH is normal 0.842. * We will check B12, folate. * PT OT. * No other neurological workup indicated. Neurologically clear. Thank you for the consult.
[2023-04-20 10:45] LABS: African American GFR (CKD) >90 (>60 ml/min/1.73 sqM); Anion Gap 7 mmol/L; Blood Urea Nitrogen 12 mg/dL (7-17); Calcium 8.5 mg/dL (8.4-10.2); Carbon Dioxide 27 mmol/L (22-30); Chloride 107 mmol/L (98-107); Glucose 124 mg/dL (74-99); Non-African American GFR(CKD) 88 (>60 ml/min/1.73 sqM); Sodium 141 mmol/L (137-145)
[2023-04-20 10:46] LABS: Potassium 3.1 mmol/L (3.5-5.1)
[2023-04-20] MEDS: FUROSEMIDE 40 MG TAB PO SCH (13:54)
--- NOTE | 2023-04-20 16:30 | P.PN ---
Subjective Progress Note Date: 04/20/23 This is a 77 year old female with medical history of hyperlipidemia, arthritis, thyroid disorder, Parkinson's disease with a left hand tremor, former smoker. Patient presents to the with concern for inability to ambulate with multiple falls. Most recent fall was 3 days ago where she has trauma to her right knee and continues with intense right knee pain to where she cannot bear weight. There is also increased swelling to that extremity. Denies syncopal episode or loss of consciousness. Denies chest pain, denies shortness of breath. Lab work reveals no white count, normal hemoglobin, potassium low at 3.3, urinalysis reveals probably acute UTI with positive nitrates, large leukocyte esterase and many bacteria. Head cervical spine CT reveals nonspecific white matter change, no acute cervical spinal fracture, there is multilevel disc degeneration and thyroid goiter. Venous doppler on the right shows no DVT there is a Bakers Cyst present. Right knee xray reveals small suprapatellar joint effusion and mild to moderate tricompartemental osteoarthritic changes. Orthopedics was consulted for further evaluation. 04/20/2023 Patient is evaluated today sitting up in the chair. Reports improvement in pain to the left knee and continues with conservative management recommending to ice and elevate. Urine culture pending patient continues on IV ceftriaxone. Discharge to subacute rehab tomorrow. Review of Systems Constitutional: Denied any fatigue denied any fever. Cardio vascular: denied any chest pain, palpitations Gastrointestinal: denied any nausea, vomiting, diarrhea Pulmonary: Denied any shortness of breath cough Neurologic denied any new focal deficits All inpatient medications were reviewed and appropriate changes in these medications as dictated in the interval history and assessment and plan. PHYSICAL EXAMINATION: GENERAL: The patient is alert and oriented x3, not in any acute distress. Well developed, well nourished. HEENT: Pupils are round and equally reacting to light. EOMI. No scleral icterus. No conjunctival pallor. Normocephalic, atraumatic. No pharyngeal erythema. No thyromegaly. CARDIOVASCULAR: S1 and S2 present. No murmurs, rubs, or gallops. PULMONARY: Chest is clear to auscultation, no wheezing or crackles. ABDOMEN: Soft, nontender, nondistended, normoactive bowel sounds. No palpable organomegaly. MUSCULOSKELETAL: No joint swelling or deformity. EXTREMITIES: No cyanosis, clubbing, or pedal edema. NEUROLOGICAL: Gross neurological examination did not reveal any focal deficits. Weakness SKIN: No rashes. Assessment and Plan Acute urinary tract infection with sepsis present on admission Hematuria likely due to the acute UTI monitor closely Right knee pain with imaging revealing joint effusion Multiple falls at home with trauma, patient did hit her head Diffuse generalized weakness and inability to ambulate History of Parkinson's disorder with left hand tremor Thyroid disorder with thyroid goiter on imaging Osteoarthritis Hyperlipidemia Hx Former smoker GI DVT Full Code Plan Continue empiric antibiotics pending urine culture Orthopedics evaluation patient is weight bearing as tolerated and recommending conservative management at this time D/C to subacute rehab tomorrow The impression and plan of care has been dictated by Maddie Riggins Nurse Practitioner as directed. Dr. Tika MD I have performed a history and physical examination and medical decision making of this patient, discussed the same with the dictator, and agree with the dictators assessment and plan as written, documented as a scribe. Based on total visit time, I have performed more than 50% of this visit. Objective - Vital Signs Vital signs: Vital Signs Temp 97.7 F 04/20/23 06:50 Pulse 91 04/20/23 06:50 Resp 16 04/20/23 06:50 BP 171/83 04/20/23 06:50 Pulse Ox 94 L 04/20/23 06:50 FiO2 21 04/19/23 09:00 Intake & Output 04/19/23 04/20/23 04/20/23 18:59 06:59 18:59 Output Total 250 Balance -250 Output: Urine 250 Other: Voiding Method External Catheter Bedside Commode External Catheter # Voids 1 1 # Bowel Movements 1 1 - Labs CBC & Chem 7: 04/19/23 05:48 04/20/23 09:48 Labs: Abnormal Lab Results - Last 24 Hours (Table) 04/19/23 04/19/23 Range/Units 05:48 05:48 WBC 10.44 H (4.50-10.00) X 10*3/uL MCHC 31.0 L (32.0-37.0) d/dL Sodium 146 H (135-145) mmol/L Potassium 3.2 L (3.5-5.5) mmol/L Assessment and Plan Time with Patient: Less than 30
[2023-04-20] MEDS: POTASSIUM CHLORIDE ER 20 MEQ TAB.ER PO SCH ×2 (18:03→20:42)
[2023-04-20] MEDS: CYANOCOBALAMIN 1,000 MCG/ML 1 ML VIAL IM SCH (20:42)
[2023-04-20] MEDS: HEPARIN SODIUM,PORCINE/PF 5,000 UNIT/0.5 ML SYRINGE SQ SCH (20:42)
[2023-04-20] MEDS ORDERED: NON FORMULARY DRUG (Mirabegron [Myrbetriq] 50 MG Tab.Er.24h) PO SCH (21:00)
[2023-04-21 01:11] VITALS: PULSE 81; TEMP 98.4
[2023-04-21] MEDS: LEVOTHYROXINE 50 MCG TAB PO SCH (06:27)
[2023-04-21 07:50] VITALS: BP 156/69; RESP 16
[2023-04-21] MEDS: HEPARIN SODIUM,PORCINE/PF 5,000 UNIT/0.5 ML SYRINGE SQ SCH (07:53)
[2023-04-21] MEDS: CARBIDOPA-LEVODOPA 25-100 MG 1 EACH TAB PO SCH ×2 (07:53→13:05)
[2023-04-21] MEDS: VENLAFAXINE HCL 37.5 MG TAB PO SCH (07:53)
[2023-04-21] MEDS: ENTACAPONE 200 MG TAB PO SCH (07:54)
[2023-04-21] MEDS: CYANOCOBALAMIN 1,000 MCG/ML 1 ML VIAL IM SCH (07:54)
[2023-04-21] MEDS: PANTOPRAZOLE 40 MG TABLET PO SCH (07:54)
[2023-04-21] MEDS: CHOLECALCIFEROL 25 MCG (1000 IU) TABLET PO SCH (07:54)
[2023-04-21] MEDS: FUROSEMIDE 40 MG TAB PO SCH (07:54)
[2023-04-21] MEDS ORDERED: LOSARTAN 50 MG TAB PO SCH (09:00)
--- NOTE | 2023-04-21 10:20 | P.DS ---
Providers Date of admission: 04/18/23 16:42 Attending physician: Jamar Torres Consults: 04/18/23 16:32 Consult Physician Urgent Consulting Provider: Triston Hansen Consult Reason/Comments: right knee pain s/p fall, pt request Do you want consulting provider notified?: Yes Consult Physician Urgent Consulting Provider: Renetta Desai Consult Reason/Comments: [place], inability to ambulate Do you want consulting provider notified?: Yes [facility] Course: Final Diagnosis Acute urinary tract infection with sepsis present on admission urine culture negative Hematuria likely due to the acute UTI monitor closely improved Right knee pain with imaging revealing joint effusion and bakers cyst. Multiple falls at home with trauma, patient did hit her head Diffuse generalized weakness and inability to ambulate Vitamin B12 deficiency History of Parkinson's disorder with left hand tremor Thyroid disorder with thyroid goiter on imaging Osteoarthritis Hyperlipidemia Hx Former smoker Full Code Discharge Disposition Patient is stable for discharge to subacute rehab. Urine culture is negative and no further antibiotics are needed on discharge. Patient will discharge on oral potassium supplement daily. Recommend 3 additional days of Vitamin B12 injection and will need to transition to oral vitamin B12 afterwards. Recommend close follow up with patients own neurologist. Patient to follow up with orthopedics on discharge regarding the right knee effusion and backers cyst and currently patient is being managed conservatively and patient to continue icing and elevating lower extremity and continue with pain management. Repeat labs in 2 to 3 days. Hospital Course This is a 77 year old female with medical history of hyperlipidemia, arthritis, thyroid disorder, Parkinson's disease with a left hand tremor, former smoker. Patient presents to the with concern for inability to ambulate with multiple falls. Most recent fall was 3 days ago where she has trauma to her right knee and continues with intense right knee pain to where she cannot bear weight. There is also increased swelling to that extremity. Denies syncopal episode or loss of consciousness. Denies chest pain, denies shortness of breath. Lab work reveals no white count, normal hemoglobin, potassium low at 3.3, urinalysis reveals probably acute UTI with positive nitrates, large leukocyte esterase and many bacteria. Head cervical spine CT reveals nonspecific white matter change, no acute cervical spinal fracture, there is multilevel disc degeneration and thyroid goiter. Venous doppler on the right shows no DVT there is a Bakers Cyst present. Right knee xray reveals small suprapatellar joint effusion and mild to moderate tricompartemental osteoarthritic changes. Venous doppler negative for acute DVT due to the mild peripheral edema of the right leg. Orthopedics was consulted and currently recommending conservative management icing and elevating lower extremity with tylenol and NSAIDs for pain management. Patient is weight bearing as tolerated with walker. Neurology evaluated the patient due to the parkinsons and recommending no changes to current medications. Patient received empiric antibiotics and recommending no further antibiotics on discharge and urine culture is negative no dysuria no frequency or urgency. Patient is denying chest pain, denying shortness of breath. No nausea vomiting or diarrhea. Tolerating diet. Lungs are clear S1 S2 auscultated abdomen is soft and nontender. Focal neurological exam is negative. Patient cleared to discharge to [facility]. Please see medication reconciliation for a list of current medications. Thank you for allowing us to participate in the care of this patient. The impression and plan of care has been dictated by Maddie Riggins, Nurse Practitioner as directed. Dr. Tika MD I have performed a history and physical examination and medical decision making of this patient, discussed the same with the dictator, and agree with the dictators assessment and plan as written, documented as a scribe. Based on total visit time, I have performed more than 50% of this visit. Patient Condition at Discharge: Stable Plan - Discharge Summary New Discharge Prescriptions: New Losartan [Cozaar] 50 mg PO DAILY #0 tab Pantoprazole [Protonix] 40 mg PO DAILY tab Cyanocobalamin [Vitamin B-12 Injection] 1,000 mcg IM DAILY #3 each Potassium Chloride ER [K-Dur 20] 20 meq PO DAILY #30 tab Continue Levothyroxine Sodium [Synthroid] 50 mcg PO DAILY Carbidopa/Levodopa [Sinemet 25-100 mg] 1 tab PO QID@09,13,17,21 Rosuvastatin Calcium [Crestor] 5 mg PO MOWEFR Furosemide [Lasix] 40 mg PO DIRECTED Venlafaxine HCl [Effexor] 37.5 mg PO DAILY Cholecalciferol [Vitamin D3 (25 Mcg = 1000 Iu)] 50 mcg PO BID Entacapone [Comtan] 200 mg PO DAILY Mirabegron [Myrbetriq] 50 mg PO HS Discontinued clonazePAM 0.25 - 0.5 mg PO BID PRN PRN Reason: Anxiety Losartan [Cozaar] 25 mg PO DAILY Discharge Medication List Carbidopa/Levodopa [Sinemet 25-100 mg] 1 tab PO QID@,13,17,21 01/04/19 [History] Levothyroxine Sodium [Synthroid] 50 mcg PO DAILY 01/04/19 [History] Rosuvastatin Calcium [Crestor] 5 mg PO MOWEFR 01/04/19 [History] Cholecalciferol [Vitamin D3 (25 Mcg = 1000 Iu)] 50 mcg PO BID 06/23/22 [History] Entacapone [Comtan] 200 mg PO DAILY 04/18/23 [History] Furosemide [Lasix] 40 mg PO DIRECTED 04/18/23 [History] Mirabegron [Myrbetriq] 50 mg PO HS 04/18/23 [History] Venlafaxine HCl [Effexor] 37.5 mg PO DAILY 04/18/23 [History] Cyanocobalamin [Vitamin B-12 Injection] 1,000 mcg IM DAILY #3 each 04/21/23 [Rx] Losartan [Cozaar] 50 mg PO DAILY #0 tab 04/21/23 [Rx] Pantoprazole [Protonix] 40 mg PO DAILY tab 04/21/23 [Rx] Potassium Chloride ER [K-Dur 20] 20 meq PO DAILY #30 tab 04/21/23 [Rx] Follow up Appointment(s)/Referral(s): Andrez Daly MD [STAFF PHYSICIAN] - As Needed Lucas Moreau MD [Primary Care Provider] - 1-2 days Ambulatory/Diagnostic Orders: Basic Metabolic Panel [LAB.AMB] Time Frame: 3 Days, Location: None Selected Activity/Diet/Wound Care/Special Instructions: Continue to elevate the right lower extremity and intermittent ice to the knee No further antibiotics needed the urine culture is negative Discharge Disposition: TRANSFER TO SNF/ECF
--- NOTE | 2023-04-21 13:05 | P.PN ---
Subjective Progress Note Date: 04/20/23 Patient was seen for a follow-up. Patient is doing better. Offers no new complaints. Patient is sitting in the recliner. Objective - Vital Signs Vital signs: Vital Signs Temp 98.4 F 04/20/23 14:52 Pulse 87 04/20/23 14:52 Resp 16 04/20/23 14:52 BP 123/71 04/20/23 14:52 Pulse Ox 94 L 04/20/23 14:52 FiO2 21 04/19/23 09:00 Intake & Output 04/19/23 04/20/23 04/20/23 18:59 06:59 18:59 Intake Total 264 Output Total 250 Balance -250 264 Intake: Oral 264 Output: Urine 250 Other: Voiding Method External Catheter Bedside Commode External Catheter # Voids 1 1 # Bowel Movements 1 1 2 - Exam Mental status, speech and language function is normal. Tone is mildly increased bilaterally. She is bradykinetic. No changes compared to yesterday. - Labs CBC & Chem 7: 04/19/23 05:48 04/20/23 20:25 Labs: Abnormal Lab Results - Last 24 Hours (Table) 04/20/23 Range/Units 09:48 Potassium 3.1 L (3.5-5.1) mmol/L Glucose 124 H (74-99) mg/dL Assessment and Plan Assessment: * Parkinson's disease, stable * Frequent falls, either due to tripping or losing balance, likely due to Parkinson's disease. All falls occurred when she was not using the assistive device. * Possible UTI. * B12 deficiency Plan: * Patient's Parkinson's disease is fairly well controlled. Patient will be continued on her Sinemet 25/100, 1 tablet 4 times a day, and Comtan 200 mg once daily. I will not make any changes in her Parkinson's medication. Patient has an appointment with her neurologist coming up. * Patient was strongly recommended to use assistive device either cane or walker all the time to prevent further falls. * Patient has UTI, currently on ceftriaxone 1 g every 24 hours. * TSH is normal 0.842. * B12 249, folate 13.4. Patient given B12 injection 1000 g IM 2. Thereafter patient can take vitamin B12 1000 mg orally daily. * PT OT. * No other neurological workup indicated. Neurologically clear.
[2023-04-21 14:22] LABS: Basophils # (A) 0.04 X 10*3/uL (0.00-0.10); Basophils % (A) 0.5 %; Eosinophils # (A) 0.28 X 10*3/uL (0.04-0.35); Eosinophils % (A) 3.5 %; HCT 41.6 % (37.2-46.3); HGB 13.5 d/dL (12.0-15.0); Lymphocytes % (A) 21.4 %; MCH 29.2 pg (27.0-32.0); MCHC 32.5 d/dL (32.0-37.0); MCV 89.8 FL (80.0-97.0); Mean Platelet Volume 9.6 FL (9.5-12.2); Monocytes # (A) 0.81 X 10*3/uL (0.20-1.00); Monocytes % (A) 10.2 %; NRBC Per 100 WBC 0 X 10*3/uL (0.00-0.01); Neutrophils # (A) 5.08 X 10*3/uL (1.80-7.70); Neutrophils % (A) 64.1 %; Platelet Count 377 X 10*3/uL (140-440); RBC 4.63 X 10*6/uL (4.10-5.20); RDW 11.9 % (11.5-14.5); WBC 7.93 X 10*3/uL (4.50-10.00)
[2023-04-21 15:06] LABS: BUN/Creat Ratio 11.83 Ratio (12.00-20.00); Blood Urea Nitrogen 7.1 mg/dL (9.0-27.0); Calcium 9.2 mg/dL (8.7-10.3); Carbon Dioxide 24.8 mmol/L (21.6-31.8); Chloride 106 mmol/L (96-109); Glucose 101 mg/dL (70-110); Potassium 3.3 mmol/L (3.5-5.5); Sodium 144 mmol/L (135-145)
== END 2023-04-21 13:05 ==
LOC: EC 13:15 → 6NMEDSUR 16:42 → INTOOBSV 16:42 → 6NMEDSUR 17:42 → 4SSUR 04-21 00:39 → UNDODISIN 04-21 13:05
PROVIDERS: ADMIT Hospitalist; ATTEND Hospitalist
DX: A41.9 Sepsis, unspecified organism (principal); N39.0 Urinary tract infection, site not specified; E78.5 Hyperlipidemia, unspecified; G20 Parkinson's disease; R29.6 Repeated falls; M17.11 Unilateral primary osteoarthritis, right knee; R53.83 Other fatigue; E04.9 Nontoxic goiter, unspecified; E53.8 Deficiency of other specified B group vitamins; M71.21 Synovial cyst of popliteal space [Baker], right knee; M50.321 Other cervical disc degeneration at C4-C5 level; M48.02 Spinal stenosis, cervical region; R60.0 Localized edema; Z87.891 Personal history of nicotine dependence; Z79.890 Hormone replacement therapy; Z79.899 Other long term (current) drug therapy
CPT/HCPCS: 96365; 96366 ×2; 96372 ×2; 96375 ×2; 96361; 99285; 36415; 94760; 93005; 97116; 97530 ×2; 97162; 97535; 97166; 83880; 80053; 80048 ×3; 84443; 82607; 82746; 83605; 83735 ×2; 84132; 84484; 85025 ×3; 85610; 85730; 81001; 87324; 87086; 73562; 71046; 93971; 72125; 70450; G0378 ×4; J3420 ×2; J0696 ×3; J1885; C9113; J1644 ×2; 96374

== ENCOUNTER 2023-07-02 10:36 | Emergency (ER) | payer MEDICARE ==
[2023-07-02 11:02] VITALS: RESP 20; TEMP 98
--- NOTE | 2023-07-02 11:11 | ED ---
General Adult HPI - General Chief complaint: Fall Stated complaint: Fall, Hit head-No Thinners Time Seen by Provider: 07/02/23 11:06 Source: patient, EMS, RN notes reviewed Mode of arrival: EMS Limitations: no limitations - History of Present Illness Initial comments: 77-year-old female with a past medical history significant for Parkinson's disease presents the emergency department with a chief complaint of fall. Patient reports that she was in her closet when she felt weak and fell backwards. She reports she did hit her head however denies loss of consciousness. She denies anticoagulant use. She reports a headache that has since improved since arriving to the emergency department. She denies any dizziness however she does feel lightheaded. Denies visual changes or vision loss, chest pain, shortness breath, nausea, vomiting. - Related Data Home Medications Medication Instructions Recorded Confirmed Carbidopa/Levodopa [Sinemet 25-100 1 tab PO QID@09,13,17,21 01/04/19 04/18/23 mg] Levothyroxine Sodium [Synthroid] 50 mcg PO DAILY 01/04/19 04/18/23 Rosuvastatin Calcium [Crestor] 5 mg PO MOWEFR 01/04/19 04/18/23 Cholecalciferol [Vitamin D3 (25 50 mcg PO BID 06/23/22 04/18/23 Mcg = 1000 Iu)] Entacapone [Comtan] 200 mg PO DAILY 04/18/23 04/18/23 Furosemide [Lasix] 40 mg PO DIRECTED 04/18/23 04/18/23 Mirabegron [Myrbetriq] 50 mg PO HS 04/18/23 04/18/23 Venlafaxine HCl [Effexor] 37.5 mg PO DAILY 04/18/23 04/18/23 Previous Rx's Medication Instructions Recorded Cyanocobalamin [Vitamin B-12 1,000 mcg IM DAILY #3 each 04/21/23 Injection] Losartan [Cozaar] 50 mg PO DAILY #0 tab 04/21/23 Pantoprazole [Protonix] 40 mg PO DAILY tab 04/21/23 Potassium Chloride ER [K-Dur 20] 20 meq PO DAILY #30 tab 04/21/23 Allergies Allergy/AdvReac Type Severity Reaction Status Date / Time cheese AdvReac Abdominal Verified 07/02/23 10:53 Pain Review of Systems ROS Statement: Those systems with pertinent positive or pertinent negative responses have been documented in the HPI. ROS Other: All systems not noted in ROS Statement are negative. Past Medical History Past Medical History: Hyperlipidemia, Neurologic Disorder, Osteoarthritis (OA), Thyroid Disorder Additional Past Medical History / Comment(s): Parkinson's disease-left hand tremor History of Any Multi-Drug Resistant Organisms: None Reported Past Surgical History: Joint Replacement, Orthopedic Surgery, Tubal Ligation Additional Past Surgical History / Comment(s): left hip replaced, right total hip arthroplasty anterior approach 01/09/2019, deviated septum repaired, right CTS Past Anesthesia/Blood Transfusion Reactions: No Reported Reaction Past Psychological History: No Psychological Hx Reported Smoking Status: Never smoker Past Alcohol Use History: None Reported Past Drug Use History: None Reported - Past Family History Sister(s) Family Medical History: Cancer Additional Family Medical History / Comment(s): Sister. is alive at age 84 and is a survivor of breast cancer. Mother Family Medical History: Cancer, Deep Vein Thrombosis (DVT), Pulmonary Embolus Additional Family Medical History / Comment(s): Mother at age 82 from uterine cancer with metastatic disease to the lungs. Brother(s) Additional Family Medical History / Comment(s): Patient has one brother age 80 with fibromyalgia, osteoarthritis and macular degeneration. Patient does not have any children. General Exam - General Exam Comments Initial Comments: General: Alert, in no acute distress Head: atraumatic normocephalic. Eyes PERRL, EOMI intact, mucous membranes moist Respiratory: Lungs clear to auscultation bilaterally Cardiovascular: Heart rate regular rate and rhythm Abdominal: Soft without guarding or rebound Extremities: Normal inspection with full range of motion and normal capillary refill Neuroogic: alert and oriented 3, CN II-XII intact, able to ambulate with steady gait Skin: warm dry and intact with normal color Limitations: no limitations Course Vital Signs 07/02/23 07/02/23 10:49 12:50 Temperature 98.0 F Pulse Rate 96 93 Respiratory 20 20 Rate Blood Pressure 131/74 131/81 O2 Sat by Pulse 97 95 Oximetry - Reevaluation(s) Reevaluation #1: 07/02/23 13:01 should reevaluated and updated on results. She is agreeable with the plan for discharge. Patient had pancho applied which she tolerated well EKG Findings - EKG Comments: EKG Findings:: I interpreted the following: EKG performed at 11:05 rate 95 bpm normal sinus rhythm. IN interval 169, QRS duration 85, QT/QTc 353/436 Procedures - Laceration Laceration #1 Indication: laceration Site: scalp (Left occipatl ) Size (cm): 3 Description: linear Anesthetic Used: lidocaine 1% Pre-repair: wound explored Type of Sutures: other (3 pancho) Patient Tolerated Procedure: well, no complications Medical Decision Making - Medical Decision Making Was pt. sent in by a medical professional or institution ([facility] Quijano, [employer], urgent care, hospital, or senior living...) When possible be specific @ -[No] Did you speak to anyone other than the patient for history (EMS, parent, family, police, friend...)? What history was obtained from this source @ -[No] Did you review nursing and triage notes (agree or disagree)? Why? @ -[I reviewed and agree with nursing and triage notes] Were old charts reviewed (outside hosp., previous admission, EMS record, old EKG, old radiological studies, urgent care reports/EKG's, senior living records)? Report findings @ -[No old charts were reviewed] Differential Diagnosis (chest pain, altered mental status, abdominal pain women, abdominal pain men, vaginal bleeding, weakness, fever, dyspnea, syncope, headache, dizziness, GI bleed, back pain, seizure, CVA, palpatations, mental health, musculoskeletal)? @ -[not applicable] EKG interpreted by me (3pts min.). @ -[As above] X-rays interpreted by me (1pt min.). @ -[None done] CT interpreted by me (1pt min.). @ -[None done] U/S interpreted by me (1pt. min.). @ -[None done] What testing was considered but not performed or refused? (CT, X-rays, U/S, labs)? Why? @ -[None] What meds were considered but not given or refused? Why? @ -[None] Did you discuss the management of the patient with other professionals (professionals i.e. KAITLIN Quijano, [employer], lab, RT, psych nurse, social media marketing analyst, pan helper, teacher, loan officer, onsite case manager)? Give summary @ -[No] Was smoking cessation discussed for >3mins.? @ -[No] Was critical care preformed (if so, how long)? @ -[No] Were there social determinants of health that impacted care today? How? (Home lessness, low income, unemployed, alcoholism, drug addiction, transportation, low edu. Level, literacy, decrease access to med. care, fpc, rehab)? @ -[No] Was there de-escalation of care discussed even if they declined (Discuss DNR or withdrawal of care, Hospice)? DNR status @ -[No] What co-morbidities impacted this encounter? (DM, HTN, Smoking, COPD, CAD, Cancer, CVA, ARF, Chemo, Hep., AIDS, mental health diagnosis, sleep apnea, morbid obesity)? @ -[None] Was patient admitted / discharged? Hospital course, mention meds given and route, prescriptions, significant lab abnormalities, going to OR and other pertinent info. @ -Discharge. This is a pleasant 77-year-old female presents to the emergency department with fall. Patient had a thorough history and physical exam performed. Physical exam reveals 2 cm laceration to the left occipital region. No focal neuro deficits noted on exam. Heart rate regular rate and rhythm, normal auscultation bilaterally Patient had laboratories studies performed which revealed WBC 8.7, hemoglobin 14.2 coagulation studies unremarkable 140, potassium 4.6 BUN 15, creatinine 0.60 initial troponin negative urinalysis negative Covid and flu and RSV negative I interpreted the following: CT results of the head and C-spine revealed no intracranial process. Patient was given ibuprofen with symptomatic relief. Patient had 2 pancho applied which she tolerated well. Discharged in stable condition return pr ecautions were discussed at length including new onset dizziness, lightheadedness, vision changes or vision loss. Case discussed with YOLANDA Lopes who agrees with plan of care Undiagnosed new problem with uncertain prognosis? @ -[No] Drug Therapy requiring intensive monitoring for toxicity (Heparin, Nitro, Insulin, Cardizem)? @ -[No] Were any procedures done? @ -[No] Diagnosis/symptom? @ -[default] Acute, or Chronic, or Acute on Chronic? @ -[default] Uncomplicated (without systemic symptoms) or Complicated (systemic symptoms)? @ -[default] Side effects of treatment? @ -[No] Exacerbation, Progression, or Severe Exacerbation? @ -[No] Poses a threat to life or bodily function? How? (Chest pain, [place], NV, pneumonia, PE, COPD, DKA, ARF, appy, cholecystitis, CVA, Diverticulitis, Homicidal, Suicidal, threat to staff... and all critical care pts) @ -[No] - Lab Data Result diagrams: 07/02/23 11:29 07/02/23 11:29 Lab Results 07/02/23 07/02/23 07/02/23 Range/Units 11:29 11:29 11:29 WBC 8.7 (3.8-10.6) k/uL RBC 4.76 (3.80-5.40) m/uL Hgb 14.1 (11.4-16.0) gm/dL Hct 43.4 (34.0-46.0) % MCV 91.3 (80.0-100.0) fL MCH 29.6 (25.0-35.0) pg MCHC 32.4 (31.0-37.0) g/dL RDW 12.8 (11.5-15.5) % Plt Count 386 (150-450) k/uL MPV 7.2 Neutrophils % 80 % Lymphocytes % 11 % Monocytes % 6 % Eosinophils % 2 % Basophils % 0 % Neutrophils # 7.0 (1.3-7.7) k/uL Lymphocytes # 1.0 (1.0-4.8) k/uL Monocytes # 0.5 (0-1.0) k/uL Eosinophils # 0.1 (0-0.7) k/uL Basophils # 0.0 (0-0.2) k/uL PT 10.4 (9.0-12.0) sec INR 1.0 (<1.2) APTT 23.9 (22.0-30.0) sec Sodium 140 (137-145) mmol/L Potassium 4.6 (3.5-5.1) mmol/L Chloride 104 (98-107) mmol/L Carbon Dioxide 30 (22-30) mmol/L Anion Gap 6 mmol/L BUN 15 (7-17) mg/dL Creatinine 0.60 (0.52-1.04) mg/dL Est GFR (CKD-EPI)AfAm >90 (>60 ml/min/1.73 sqM) Est GFR (CKD-EPI)NonAf 88 (>60 ml/min/1.73 sqM) Glucose 94 (74-99) mg/dL POC Glucose (mg/dL) (70-110) mg/dL POC Glu Investment Advisor ID Plasma Lactic Acid Ray (0.7-2.0) mmol/L Calcium 9.2 (8.4-10.2) mg/dL Magnesium 2.1 (1.6-2.3) mg/dL Total Bilirubin 0.7 (0.2-1.3) mg/dL AST 23 (14-36) U/L ALT 7 (4-34) U/L Alkaline Phosphatase 76 (38-126) U/L Troponin I (0.000-0.034) ng/mL Total Protein 7.0 (6.3-8.2) g/dL Albumin 4.0 (3.5-5.0) g/dL Urine Color Urine Appearance (Clear) Urine pH (5.0-8.0) Ur Specific [place] (1.001-1.035) Urine Protein (Negative) Urine Glucose (UA) (Negative) Urine Ketones (Negative) Urine Blood (Negative) Urine Nitrite (Negative) Urine Bilirubin (Negative) Urine Urobilinogen (<2.0) mg/dL Ur Leukocyte Esterase (Negative) Influenza Type A (PCR) (Not Detectd) Influenza Type B (PCR) (Not Detectd) RSV (PCR) (Not Detectd) SARS-CoV-2 (PCR) (Not Detectd) 07/02/23 07/02/23 07/02/23 Range/Units 11:29 11:29 11:29 WBC (3.8-10.6) k/uL RBC (3.80-5.40) m/uL Hgb (11.4-16.0) gm/dL Hct (34.0-46.0) % MCV (80.0-100.0) fL MCH (25.0-35.0) pg MCHC (31.0-37.0) g/dL RDW (11.5-15.5) % Plt Count (150-450) k/uL MPV Neutrophils % % Lymphocytes % % Monocytes % % Eosinophils % % Basophils % % Neutrophils # (1.3-7.7) k/uL Lymphocytes # (1.0-4.8) k/uL Monocytes # (0-1.0) k/uL Eosinophils # (0-0.7) k/uL Basophils # (0-0.2) k/uL PT (9.0-12.0) sec INR (<1.2) APTT (22.0-30.0) sec Sodium (137-145) mmol/L Potassium (3.5-5.1) mmol/L Chloride (98-107) mmol/L Carbon Dioxide (22-30) mmol/L Anion Gap mmol/L BUN (7-17) mg/dL Creatinine (0.52-1.04) mg/dL Est GFR (CKD-EPI)AfAm (>60 ml/min/1.73 sqM) Est GFR (CKD-EPI)NonAf (>60 ml/min/1.73 sqM) Glucose (74-99) mg/dL POC Glucose (mg/dL) (70-110) mg/dL POC Glu Investment Advisor ID Plasma Lactic Acid Ray 1.2 (0.7-2.0) mmol/L Calcium (8.4-10.2) mg/dL Magnesium (1.6-2.3) mg/dL Total Bilirubin (0.2-1.3) mg/dL AST (14-36) U/L ALT (4-34) U/L Alkaline Phosphatase (38-126) U/L Troponin I (0.000-0.034) ng/mL Total Protein (6.3-8.2) g/dL Albumin (3.5-5.0) g/dL Urine Color Colorless Urine Appearance Clear (Clear) Urine pH 6.0 (5.0-8.0) Ur Specific [place] 1.007 (1.001-1.035) Urine Protein Negative (Negative) Urine Glucose (UA) Negative (Negative) Urine Ketones Negative (Negative) Urine Blood Negative (Negative) Urine Nitrite Negative (Negative) Urine Bilirubin Negative (Negative) Urine Urobilinogen <2.0 (<2.0) mg/dL Ur Leukocyte Esterase Negative (Negative) Influenza Type A (PCR) Not Detected (Not Detectd) Influenza Type B (PCR) Not Detected (Not Detectd) RSV (PCR) Not Detected (Not Detectd) SARS-CoV-2 (PCR) Not Detected (Not Detectd) 07/02/23 07/02/23 Range/Units 11:29 11:34 WBC (3.8-10.6) k/uL RBC (3.80-5.40) m/uL Hgb (11.4-16.0) gm/dL Hct (34.0-46.0) % MCV (80.0-100.0) fL MCH (25.0-35.0) pg MCHC (31.0-37.0) g/dL RDW (11.5-15.5) % Plt Count (150-450) k/uL MPV Neutrophils % % Lymphocytes % % Monocytes % % Eosinophils % % Basophils % % Neutrophils # (1.3-7.7) k/uL Lymphocytes # (1.0-4.8) k/uL Monocytes # (0-1.0) k/uL Eosinophils # (0-0.7) k/uL Basophils # (0-0.2) k/uL PT (9.0-12.0) sec INR (<1.2) APTT (22.0-30.0) sec Sodium (137-145) mmol/L Potassium (3.5-5.1) mmol/L Chloride (98-107) mmol/L Carbon Dioxide (22-30) mmol/L Anion Gap mmol/L BUN (7-17) mg/dL Creatinine (0.52-1.04) mg/dL Est GFR (CKD-EPI)AfAm (>60 ml/min/1.73 sqM) Est GFR (CKD-EPI)NonAf (>60 ml/min/1.73 sqM) Glucose (74-99) mg/dL POC Glucose (mg/dL) 99 (70-110) mg/dL POC Glu Investment Advisor ID Alejandrina Perez Plasma Lactic Acid Ray (0.7-2.0) mmol/L Calcium (8.4-10.2) mg/dL Magnesium (1.6-2.3) mg/dL Total Bilirubin (0.2-1.3) mg/dL AST (14-36) U/L ALT (4-34) U/L Alkaline Phosphatase (38-126) U/L Troponin I <0.012 (0.000-0.034) ng/mL Total Protein (6.3-8.2) g/dL Albumin (3.5-5.0) g/dL Urine Color Urine Appearance (Clear) Urine pH (5.0-8.0) Ur Specific [place] (1.001-1.035) Urine Protein (Negative) Urine Glucose (UA) (Negative) Urine Ketones (Negative) Urine Blood (Negative) Urine Nitrite (Negative) Urine Bilirubin (Negative) Urine Urobilinogen (<2.0) mg/dL Ur Leukocyte Esterase (Negative) Influenza Type A (PCR) (Not Detectd) Influenza Type B (PCR) (Not Detectd) RSV (PCR) (Not Detectd) SARS-CoV-2 (PCR) (Not Detectd) Disposition Clinical Impression: Fall, Scalp laceration Disposition: HOME SELF-CARE Condition: Stable Instructions (If sedation given, give patient instructions): Fall Prevention for Older Adults (ED), Fall Prevention (ED) Additional Instructions: Please return to the nearest emergency Department if dizziness, lightheadedness, vision changes develop PLease remove pancho in 10-14 days Is patient prescribed a controlled substance at d/c from ED?: No Referrals: Lucas Moreau MD [Primary Care Provider] - 1-2 days Time of Disposition: 12:54
[2023-07-02] MEDS ORDERED: SODIUM CHLORIDE 0.9% 1,000 ML IV ONE (11:17)
[2023-07-02 11:35] LABS: Glucose,Whole Blood 99 mg/dL (70-110)
[2023-07-02 11:54] LABS: Basophils % (A) 0 %; Eosinophils # (A) 0.1 k/uL (0-0.7); Eosinophils % (A) 2 %; HCT 43.4 % (34.0-46.0); HGB 14.1 gm/dL (11.4-16.0); Lymphocytes % (A) 11 %; MCH 29.6 pg (25.0-35.0); MCHC 32.4 g/dL (31.0-37.0); MCV 91.3 fL (80.0-100.0); Mean Platelet Volume 7.2; Monocytes # (A) 0.5 k/uL (0-1.0); Monocytes % (A) 6 %; Neutrophils % (A) 80 %; Platelet Count 386 k/uL (150-450); RBC 4.76 m/uL (3.80-5.40); RDW 12.8 % (11.5-15.5); WBC 8.7 k/uL (3.8-10.6)
[2023-07-02 12:00] LABS: Appearance,Urine Clear (Clear); Bilirubin,Urine Negative (Negative); Blood,Urine Negative (Negative); Color,Urine Colorless; Glucose,Urine (UA) Negative (Negative); Ketones,Urine Negative (Negative); Leukocyte Esterase,Urine Negative (Negative); Nitrite,Urine Negative (Negative); Protein,Urine Negative (Negative); Specific Gravity,Urine 1.007 (1.001-1.035); Urobilinogen,Urine <2.0 mg/dL (<2.0)
[2023-07-02 12:04] LABS: Partial Thromboplastin Time 23.9 sec (22.0-30.0); Prothrombin Time 10.4 sec (9.0-12.0)
[2023-07-02 12:05] LABS: ALT 7 U/L (4-34); AST 23 U/L (14-36); African American GFR (CKD) >90 (>60 ml/min/1.73 sqM); Alkaline Phosphatase 76 U/L (38-126); Anion Gap 6 mmol/L; Blood Urea Nitrogen 15 mg/dL (7-17); Calcium 9.2 mg/dL (8.4-10.2); Carbon Dioxide 30 mmol/L (22-30); Chloride 104 mmol/L (98-107); Glucose 94 mg/dL (74-99); Magnesium 2.1 mg/dL (1.6-2.3); Non-African American GFR(CKD) 88 (>60 ml/min/1.73 sqM); Potassium 4.6 mmol/L (3.5-5.1); Sodium 140 mmol/L (137-145); Total Bilirubin 0.7 mg/dL (0.2-1.3)
--- NOTE | 2023-07-02 12:11 | XR ---
EXAMINATION TYPE: XR chest 2V DATE OF EXAM: 07/02/2023 12:05 PM CLINICAL INDICATION:Female, 77 years old with history of weakness; COMPARISON: Chest radiographs from 04/18/2023 TECHNIQUE: XR chest 2V Frontal and lateral views of the chest. FINDINGS: Lungs/Pleura: There is no evidence of pleural effusion, focal consolidation, or pneumothorax. Pulmonary vascularity: Unremarkable. Heart/mediastinum: Cardiomediastinal silhouette is unremarkable. Musculoskeletal: No acute osseous pathology. IMPRESSION: No acute cardiopulmonary disease/process.
--- NOTE | 2023-07-02 12:16 | CT ---
EXAMINATION TYPE: CT brain cspine wo con CT DLP: 1294.6 mGycm, Automated exposure control for dose reduction was used. DATE OF EXAM: 07/02/2023 12:03 PM COMPARISON: 04/18/2023 CLINICAL INDICATION:Female, 77 years old with history of pain; fall TECHNIQUE: Brain: Multiple axial CT images of the brain were obtained without IV contrast. Cspine: Axial CT images from the skull base to the inferior aspect of T2 we obtained without intraven ous contrast. Coronal and sagittal reformatted images were also reviewed. FINDINGS: Brain: Extra-axial spaces: No abnormal extra-axial fluid collections. Falx lipomas noted. Ventricular system: Dilatation in proportion to cerebral atrophy. Cerebral parenchyma: Cerebral atrophy. No acute intraparenchymal hemorrhage or mass effect. The bardales -white junction is well differentiated. Scattered hypoattenuating areas are seen within the white mat ter. Cerebellum: Unremarkable. Mass effect: No evidence of midline shift. Intracranial vasculature: Atherosclerotic calcifications of the intracranial vessels. Soft tissues: Posterior left scalp laceration. Calvarium/osseous structures: No depressed skull fracture. Paranasal sinuses and mastoid air cells: Clear. Visualized orbits: Orbital contents are intact. Cervical spine: Fracture: None. Osseous structures: Multilevel degenerative disc disease changes with endplate spurring and disc oste ophyte complex's. Vertebral alignment: Within normal limits. Spinal canal/Neural Foramina: Disc osteophyte complexes at C5-C7 with at least mild spinal canal sten osis. Facet joint uncovertebral joint arthropathy scattered throughout the cervical spine with varyin g degrees of neural foraminal stenosis. Neck soft tissues: Prevertebral soft tissues are within normal limits. Other: The airway is patent. The lung apices are clear. IMPRESSION: 1. No acute intracranial process. 2. Posterior left scalp laceration without evidence of fracture. 3. Nonspecific white matter changes, likely secondary to chronic small vessel ischemic disease. 4. No evidence of cervical spine fracture. 5. Mild to moderate multilevel degenerative disc disease.
[2023-07-02] MEDS ORDERED: IBUPROFEN 600 MG TAB PO STA (12:22)
[2023-07-02] MEDS ORDERED: LIDOCAINE/EPINEPHR/TETRACAINE 5 ML BOTTLE TOPICAL ONE (12:30)
[2023-07-02 12:58] VITALS: BP 131/81; PULSE 93
== END 2023-07-02 13:40 | disposition home or self-care (01) ==
LOC: EC 10:36
DX: S01.01XA Laceration without foreign body of scalp, initial encounter (principal); E78.5 Hyperlipidemia, unspecified; E07.9 Disorder of thyroid, unspecified; G20.C Parkinsonism, unspecified; Z20.822 Contact with and (suspected) exposure to COVID-19; Z79.890 Hormone replacement therapy; Z79.899 Other long term (current) drug therapy; Z91.011 Allergy to milk products; W18.30XA Fall on same level, unspecified, initial encounter; Y92.000 Kitchen of unspecified non-institutional (private) residence as the place of occurrence of the external cause
CPT/HCPCS: 12002; 36415; 70450; 71046; 72125; 80053; 81003; 83605; 83735; 84484; 85025; 85610; 85730; 87636; 93005; 96360; 99285

== ENCOUNTER → 2023-12-13 | Outpatient (CLI) | payer MEDICARE ==
[2023-12-13 18:30] LABS: T4, Free (Free Thyroxine) 1.29 ng/dL (0.80-1.80)
== END | disposition home or self-care (01) ==
LOC: LABWHC1 14:17
PROVIDERS: ATTEND Internal Medicine Endocrinology, Diabetes & Metabolism
DX: E04.2 Nontoxic multinodular goiter (principal)
CPT/HCPCS: 36415; 84439; 84443

== ENCOUNTER 2024-04-06 07:39 | Emergency (ER) | payer MEDICARE ==
--- NOTE | 2024-04-06 08:13 | ED ---
General Adult HPI - General Chief complaint: Fall Stated complaint: Fall Time Seen by Provider: 04/06/24 07:50 Source: patient, EMS, RN notes reviewed, old records reviewed Mode of arrival: EMS - History of Present Illness Initial comments: This is a 78-year-old female who presents to the emergency department complaining that she has been falling a lot lately. Patient states she fell this morning because she tripped. Patient states she did not hurt anything that she knows of. Patient states she does have some neck pain but that was before she had tripped and she does not think the ambulance ride here made it worse. Patient denies numbness weakness. Patient states in previous fall she has hit her head but she did not hit her head today. Patient denies any back pain patient has chest pain patient is any palpitations or shortness of breath or patient has abdominal pain. Patient denies any extremity pain. - Related Data Home Medications Medication Instructions Recorded Confirmed Carbidopa/Levodopa [Sinemet 25-100 1 tab PO QID@,,17,01/04/19 04/18/23 mg] Levothyroxine Sodium [Synthroid] 50 mcg PO DAILY 01/04/19 04/18/23 Rosuvastatin Calcium [Crestor] 5 mg PO MOWEFR 01/04/19 04/18/23 Cholecalciferol [Vitamin D3 (25 50 mcg PO BID 06/23/22 04/18/23 Mcg = 1000 Iu)] Entacapone [Comtan] 200 mg PO DAILY 04/18/23 04/18/23 Furosemide [Lasix] 40 mg PO DIRECTED 04/18/23 04/18/23 Mirabegron [Myrbetriq] 50 mg PO HS 04/18/23 04/18/23 Venlafaxine HCl [Effexor] 37.5 mg PO DAILY 04/18/23 04/18/23 Previous Rx's Medication Instructions Recorded Cyanocobalamin [Vitamin B-12 1,000 mcg IM DAILY #3 each 04/21/23 Injection] Losartan [Cozaar] 50 mg PO DAILY #0 tab 04/21/23 Pantoprazole [Protonix] 40 mg PO DAILY tab 04/21/23 Potassium Chloride ER [K-Dur 20] 20 meq PO DAILY #30 tab 04/21/23 Nitrofurantoin Monohyd/M-Cryst 100 mg PO Q12HR #14 cap 04/06/24 [Macrobid] Allergies Allergy/AdvReac Type Severity Reaction Status Date / Time cheese AdvReac Abdominal Verified 04/06/24 07:54 Pain Review of Systems ROS Statement: Those systems with pertinent positive or pertinent negative responses have been documented in the HPI. ROS Other: All systems not noted in ROS Statement are negative. Past Medical History Past Medical History: Dementia, Hyperlipidemia, Neurologic Disorder, Osteoarthritis (OA), Thyroid Disorder Additional Past Medical History / Comment(s): Parkinson's Disease History of Any Multi-Drug Resistant Organisms: None Reported Past Surgical History: Joint Replacement, Orthopedic Surgery, Tubal Ligation Additional Past Surgical History / Comment(s): left hip replaced, right total hip arthroplasty anterior approach 01/09/2019, deviated septum repaired, right CTS Past Anesthesia/Blood Transfusion Reactions: No Reported Reaction Past Psychological History: No Psychological Hx Reported Smoking Status: Never smoker Past Alcohol Use History: None Reported Past Drug Use History: None Reported - Past Family History Sister(s) Family Medical History: Cancer Additional Family Medical History / Comment(s): Sister. is alive at age 84 and is a survivor of breast cancer. Mother Family Medical History: Cancer, Deep Vein Thrombosis (DVT), Pulmonary Embolus Additional Family Medical History / Comment(s): Mother at age 82 from uterine cancer with metastatic disease to the lungs. Brother(s) Additional Family Medical History / Comment(s): Patient has one brother age 80 with fibromyalgia, osteoarthritis and macular degeneration. Patient does not have any children. General Exam - General Exam Comments Initial Comments: GENERAL: Patient is well-developed and well-nourished. Patient is nontoxic and well- hydrated and is in no acute distress. ENT: Neck is soft and supple. No significant lymphadenopathy is noted. Oropharynx is clear. Moist mucous membranes. Patient has some pain in the trapezius muscle bilaterally. EYES: The sclera were anicteric and conjunctiva were pink and moist. Extraocular movements were intact and pupils were equal round and reactive to light. Eyelids were unremarkable. PULMONARY: Unlabored respirations. Good breath sounds bilaterally. No audible rales rhonchi or wheezing was noted. CARDIOVASCULAR: There is a regular rate and rhythm without any murmurs gallops or rubs. ABDOMEN: Soft and nontender with normal bowel sounds. SKIN: Skin is clear with no lesions or rashes and otherwise unremarkable. NEUROLOGIC: Patient is alert and oriented x3. Cranial nerves II through XII are grossly intact. Motor and sensory are also intact. Normal speech, volume and content. Symmetrical smile. MUSCULOSKELETAL: Normal extremities with adequate strength and full range of motion. No lower extremity swelling or edema. No calf tenderness. LYMPHATICS: No significant lymphadenopathy is noted PSYCHIATRIC: Normal psychiatric evaluation. Course Vital Signs 04/06/24 04/06/24 07:44 10:10 Temperature 98.5 F Pulse Rate 81 81 Respiratory 18 20 Rate Blood Pressure 145/77 136/74 O2 Sat by Pulse 97 96 Oximetry Medical Decision Making - Medical Decision Making EKG is interpreted by myself. EKG shows a sinus rhythm 89 bpm MT interval is 169 QRS is 95 QT interval 374 QTc is 421. Patient's EKG shows no ST segment elevation or depression. Was pt. sent in by a medical professional or institution (, PA, AD OPERATIONS INTERN, urgent care, hospital, or long-term...) When possible be specific @ -No Did you speak to anyone other than the patient for history (EMS, parent, family, police, friend...)? What history was obtained from this source @ -No Did you review nursing and triage notes (agree or disagree)? Why? @ -I reviewed and agree with nursing and triage notes Were old charts reviewed (outside hosp., previous admission, EMS record, old EKG, old radiological studies, urgent care reports/EKG's, long-term records)? Report findings @ -No old charts were reviewed Differential Diagnosis? @ -Differential Weakness: Hypoglycemia, shock, sepsis, hyponatremia, anemia, infection, AK, ETOH, adverse medicine reaction, overdose, stroke, this is not meant to be an all-inclusive list. EKG interpreted by me (3pts min.). @ -As above X-rays interpreted by me (1pt min.). @ -None done CT interpreted by me (1pt min.). @ -CT of the brain and C-spine show no acute abnormality U/S interpreted by me (1pt. min.). @ -None done What testing was considered but not performed or refused? (CT, X-rays, U/S, labs)? Why? @ -None What meds were considered but not given or refused? Why? @ -None Did you discuss the management of the patient with other professionals (arpit boyer i.e. , PA, AD OPERATIONS INTERN, lab, RT, psych nurse, social services director, build master, teacher, sales officer, case loader operator)? Give summary @ -No Was smoking cessation discussed for >3mins.? @ -No Was critical care preformed (if so, how long)? @ -No Were there social determinants of health that impacted care today? How? (Homelessness, low income, unemployed, alcoholism, drug addiction, transportation, low edu. Level, literacy, decrease access to med. care, halfway, rehab)? @ -No Was there de-escalation of care discussed even if they declined (Discuss DNR or withdrawal of care, Hospice)? DNR status @ -No What co-morbidities impacted this encounter? (DM, HTN, Smoking, COPD, CAD, Cancer, CVA, ARF, Chemo, Hep., AIDS, mental health diagnosis, sleep apnea, morbid obesity)? @ -None Was patient admitted / discharged? Hospital course, mention meds given and route, prescriptions, significant lab abnormalities, going to OR and other pertinent info. @ -Patient had a urinary tract infection I gave her 2 g of Rocephin. Patient did want to go home was comfortable taking her home. Patient will be given a prescription for antibiotics on discharge. Undiagnosed new problem with uncertain prognosis? @ -No Drug Therapy requiring intensive monitoring for toxicity (Heparin, Nitro, Insulin, Cardizem)? @ -No Were any procedures done? @ -No Diagnosis/symptom? @ -Urinary tract infection Acute, or Chronic, or Acute on Chronic? @ -Acute Uncomplicated (without systemic symptoms) or Complicated (systemic symptoms)? @ -Complicated Side effects of treatment? @ -No Exacerbation, Progression, or Severe Exacerbation? @ -No Poses a threat to life or bodily function? How? (Chest pain, USA, AK, pneumonia, PE, COPD, DKA, ARF, appy, cholecystitis, CVA, Diverticulitis, Homicidal, Suicidal, threat to staff... and all critical care pts) @ -Yes this could lead to sepsis and endorgan dysfunction diagnosis/symptom? @ -Follow Acute, or Chronic, or Acute on Chronic? @ -Acute Uncomplicated (without systemic symptoms) or Complicated (systemic symptoms)? @ -Uncomplicated Side effects of treatment? @ -None Exacerbation, Progression, or Severe Exacerbation] @ -No Poses a threat to life or bodily function? @ -No - Lab Data Result diagrams: 04/06/24 08:12 04/06/24 08:12 Lab Results 04/06/24 04/06/24 04/06/24 Range/Units 08:12 08:12 08:12 WBC 8.4 (3.8-10.6) k/uL RBC 4.74 (3.80-5.40) m/uL Hgb 14.0 (11.4-16.0) gm/dL Hct 43.6 (34.0-46.0) % MCV 91.9 (80.0-100.0) fL MCH 29.6 (25.0-35.0) pg MCHC 32.2 (31.0-37.0) g/dL RDW 12.4 (11.5-15.5) % Plt Count 350 (150-450) k/uL MPV 7.5 Neutrophils % 68 % Lymphocytes % 20 % Monocytes % 7 % Eosinophils % 2 % Basophils % 1 % Neutrophils # 5.7 (1.3-7.7) k/uL Lymphocytes # 1.7 (1.0-4.8) k/uL Monocytes # 0.6 (0-1.0) k/uL Eosinophils # 0.2 (0-0.7) k/uL Basophils # 0.1 (0-0.2) k/uL PT 10.7 (10.0-12.5) sec INR 1.0 (<1.2) APTT 26.4 (22.0-30.0) sec Sodium (137-145) mmol/L Potassium (3.5-5.1) mmol/L Chloride (98-107) mmol/L Carbon Dioxide (22-30) mmol/L Anion Gap mmol/L BUN (7-17) mg/dL Creatinine (0.52-1.04) mg/dL Est GFR (CKD-EPI)AfAm (>60 ml/min/1.73 sqM) Est GFR (CKD-EPI)NonAf (>60 ml/min/1.73 sqM) Glucose (74-99) mg/dL Plasma Lactic Acid Ray (0.7-2.0) mmol/L Calcium (8.4-10.2) mg/dL Magnesium (1.6-2.3) mg/dL Total Bilirubin (0.2-1.3) mg/dL AST (14-36) U/L ALT (4-34) U/L Alkaline Phosphatase (38-126) U/L Troponin I (0.000-0.034) ng/mL Total Protein (6.3-8.2) g/dL Albumin (3.5-5.0) g/dL Urine Color Light Yellow Urine Appearance Cloudy H (Clear) Urine pH 6.5 (5.0-8.0) Ur Specific [place] 1.009 (1.001-1.035) Urine Protein Negative (Negative) Urine Glucose (UA) Negative (Negative) Urine Ketones Negative (Negative) Urine Blood Negative (Negative) Urine Nitrite Positive H (Negative) Urine Bilirubin Negative (Negative) Urine Urobilinogen <2.0 (<2.0) mg/dL Ur Leukocyte Esterase Large H (Negative) Urine WBC 54 H (0-5) /hpf Ur Squamous Epith Cells <1 (0-4) /hpf Urine Bacteria Occasional H (None) /hpf Urine Mucus Occasional H (None) /hpf 04/06/24 04/06/24 04/06/24 Range/Units 08:12 08:12 08:12 WBC (3.8-10.6) k/uL RBC (3.80-5.40) m/uL Hgb (11.4-16.0) gm/dL Hct (34.0-46.0) % MCV (80.0-100.0) fL MCH (25.0-35.0) pg MCHC (31.0-37.0) g/dL RDW (11.5-15.5) % Plt Count (150-450) k/uL MPV Neutrophils % % Lymphocytes % % Monocytes % % Eosinophils % % Basophils % % Neutrophils # (1.3-7.7) k/uL Lymphocytes # (1.0-4.8) k/uL Monocytes # (0-1.0) k/uL Eosinophils # (0-0.7) k/uL Basophils # (0-0.2) k/uL PT (10.0-12.5) sec INR (<1.2) APTT (22.0-30.0) sec Sodium 139 (137-145) mmol/L Potassium 4.7 (3.5-5.1) mmol/L Chloride 109 H (98-107) mmol/L Carbon Dioxide 29 (22-30) mmol/L Anion Gap 1 mmol/L BUN 16 (7-17) mg/dL Creatinine 0.77 (0.52-1.04) mg/dL Est GFR (CKD-EPI)AfAm 85 (>60 ml/min/1.73 sqM) Est GFR (CKD-EPI)NonAf 74 (>60 ml/min/1.73 sqM) Glucose 97 (74-99) mg/dL Plasma Lactic Acid Ray 0.8 (0.7-2.0) mmol/L Calcium 9.2 (8.4-10.2) mg/dL Magnesium 2.2 (1.6-2.3) mg/dL Total Bilirubin 0.8 (0.2-1.3) mg/dL AST 27 (14-36) U/L ALT 8 (4-34) U/L Alkaline Phosphatase 67 (38-126) U/L Troponin I <0.012 (0.000-0.034) ng/mL Total Protein 6.2 L (6.3-8.2) g/dL Albumin 3.9 (3.5-5.0) g/dL Urine Color Urine Appearance (Clear) Urine pH (5.0-8.0) Ur Specific [place]k (1.001-1.035) Urine Protein (Negative) Urine Glucose (UA) (Negative) Urine Ketones (Negative) Urine Blood (Negative) Urine Nitrite (Negative) Urine Bilirubin (Negative) Urine Urobilinogen (<2.0) mg/dL Ur Leukocyte Esterase (Negative) Urine WBC (0-5) /hpf Ur Squamous Epith Cells (0-4) /hpf Urine Bacteria (None) /hpf Urine Mucus (None) /hpf Disposition Clinical Impression: Urinary tract infection, Fall Disposition: HOME SELF-CARE Instructions (If sedation given, give patient instructions): Fall Prevention for Older Adults (ED), Urinary Tract Infection in Women (ED) Prescriptions: Nitrofurantoin Monohyd/M-Cryst [Macrobid] 100 mg PO Q12HR #14 cap Is patient prescribed a controlled substance at d/c from ED?: No Referrals: Lucas Moreau MD [Primary Care Provider] - 1-2 days Time of Disposition: 10:57
[2024-04-06 08:31] LABS: Partial Thromboplastin Time 26.4 sec (22.0-30.0); Prothrombin Time 10.7 sec (10.0-12.5)
[2024-04-06 08:37] LABS: Basophils # (A) 0.1 k/uL (0-0.2); Basophils % (A) 1 %; Eosinophils # (A) 0.2 k/uL (0-0.7); Eosinophils % (A) 2 %; HCT 43.6 % (34.0-46.0); Lymphocytes # (A) 1.7 k/uL (1.0-4.8); Lymphocytes % (A) 20 %; MCH 29.6 pg (25.0-35.0); MCHC 32.2 g/dL (31.0-37.0); MCV 91.9 fL (80.0-100.0); Mean Platelet Volume 7.5; Monocytes # (A) 0.6 k/uL (0-1.0); Monocytes % (A) 7 %; Neutrophils # (A) 5.7 k/uL (1.3-7.7); Neutrophils % (A) 68 %; Platelet Count 350 k/uL (150-450); RBC 4.74 m/uL (3.80-5.40); RDW 12.4 % (11.5-15.5); WBC 8.4 k/uL (3.8-10.6)
[2024-04-06 08:40] LABS: ALT 8 U/L (4-34); African American GFR (CKD) 85 (>60 ml/min/1.73 sqM); Anion Gap 1 mmol/L; Blood Urea Nitrogen 16 mg/dL (7-17); Calcium 9.2 mg/dL (8.4-10.2); Carbon Dioxide 29 mmol/L (22-30); Chloride 109 mmol/L (98-107); Glucose 97 mg/dL (74-99); Non-African American GFR(CKD) 74 (>60 ml/min/1.73 sqM); Sodium 139 mmol/L (137-145); Total Bilirubin 0.8 mg/dL (0.2-1.3)
[2024-04-06 09:11] LABS: AST 27 U/L (14-36); Albumin 3.9 g/dL (3.5-5.0); Alkaline Phosphatase 67 U/L (38-126); Magnesium 2.2 mg/dL (1.6-2.3); Potassium 4.7 mmol/L (3.5-5.1)
[2024-04-06 09:12] LABS: Total Protein 6.2 g/dL (6.3-8.2)
[2024-04-06 09:15] LABS: Appearance,Urine Cloudy (Clear); Bacteria,Urine Occasional /hpf; Bilirubin,Urine Negative (Negative); Blood,Urine Negative (Negative); Color,Urine Light Yellow; Glucose,Urine (UA) Negative (Negative); Ketones,Urine Negative (Negative); Leukocyte Esterase,Urine Large (Negative); Mucus,Urine Occasional /hpf; Nitrite,Urine Positive (Negative); PH, Urine 6.5 (5.0-8.0); Protein,Urine Negative (Negative); Specific Gravity,Urine 1.009 (1.001-1.035); Squamous Epithelial Cell,Urine <1 /hpf (0-4); Urobilinogen,Urine <2.0 mg/dL (<2.0); WBC,Urine 54 /hpf (0-5)
[2024-04-06 10:11] VITALS: RESP 20
--- NOTE | 2024-04-06 10:16 | CT ---
EXAMINATION TYPE: CT brain cspine wo con CT DLP: 1356.3 mGycm, Automated exposure control for dose reduction was used. DATE OF EXAM: 04/06/2024 9:20 AM COMPARISON: None. CLINICAL INDICATION:Female, 78 years old with history of Trauma; fall. TECHNIQUE: Brain: Multiple axial CT images of the brain were obtained without IV contrast. Cspine: Axial CT images from the skull base to the inferior aspect of T2 we obtained without intraven ous contrast. Coronal and sagittal reformatted images were also reviewed. . FINDINGS: Brain: Extra-axial spaces: No abnormal extra-axial fluid collections. Ventricular system: Dilatation in proportion to cerebral atrophy. Cerebral parenchyma: Cerebral atrophy. No acute intraparenchymal hemorrhage or mass effect. The bardales -white junction is well differentiated. Scattered hypoattenuating areas are seen within the white mat ter. Cerebellum: Unremarkable. Mass effect: No evidence of midline shift. Intracranial vasculature: Atherosclerotic calcifications of the intracranial vessels. Soft tissues: Normal. Calvarium/osseous structures: No depressed skull fracture. Paranasal sinuses and mastoid air cells: Mild scattered mucosal thickening and or secretions. Visualized orbits: Orbital contents are intact. Cervical spine: Fracture: None. Osseous structures: Multilevel degenerative disc disease changes with endplate spurring and disc oste ophyte complex's. Vertebral alignment: Within normal limits. Spinal canal/Neural Foramina: No evidence of significant spinal canal narrowing. No evidence for sign ificant neural foraminal stenosis. Neck soft tissues: Prevertebral soft tissues are within normal limits. Other: The airway is patent. The lung apices are clear. IMPRESSION: 1. No acute intracranial process. 2. Nonspecific white matter changes, likely secondary to chronic small vessel ischemic disease. 3. No evidence of cervical spine fracture. 4. Mild to moderate multilevel degenerative disc disease.
[2024-04-06] MEDS: cefTRIAXone IN SWFI 1,000 MG/10 ML SYRINGE IVP STA ×2 (10:20→10:24)
[2024-04-06 11:17] VITALS: BP 132/68; PULSE 84; TEMP 98.2
== END 2024-04-06 11:15 | disposition home or self-care (01) ==
LOC: EC 07:39
DX: N39.0 Urinary tract infection, site not specified (principal); Z91.011 Allergy to milk products; W01.0XXA Fall on same level from slipping, tripping and stumbling without subsequent striking against object, initial encounter
CPT/HCPCS: 99285 ×2; 96374 ×2; 51701 ×2; 36415; 93005; 80053; 83605; 83735; 84484; 85025; 85610; 85730; 81001; 72125; 70450; J0696

== ENCOUNTER 2024-05-11 21:31 | Inpatient (IN) | payer MEDICARE ==
[2024-05-12] MEDS ORDERED: VENLAFAXINE HCL ER 150 MG CAP PO ONE ×2 (00:01→10:04)
[2024-05-12] MEDS ORDERED: LOSARTAN 25 MG TAB ONE (10:03)
[2024-05-12] MEDS ORDERED: FUROSEMIDE 40 MG TAB ONE (10:03)
[2024-05-12] MEDS ORDERED: ATORVASTATIN 10 MG TAB ONE (22:07)
[2024-05-12] MEDS ORDERED: ACETAMINOPHEN TAB 325 MG TAB ONE (22:08)
[2024-05-12] MEDS ORDERED: MELATONIN 3 MG TABLET ONE (22:08)
[2024-05-13] MEDS ORDERED: FUROSEMIDE 40 MG TAB ONE (09:14)
[2024-05-13] MEDS ORDERED: LOSARTAN 25 MG TAB ONE (09:14)
[2024-05-13] MEDS ORDERED: CHOLECALCIFEROL 25 MCG (1000 IU) TABLET ONE (09:14)
[2024-05-13] MEDS ORDERED: LEVOTHYROXINE 50 MCG TAB ONE (09:15)
[2024-05-13] MEDS ORDERED: VENLAFAXINE HCL ER 150 MG CAP PO ONE (09:15)
[2024-05-13] MEDS ORDERED: CARBIDOPA-LEVODOPA 25-100 MG 1 EACH TAB ONE (09:15)
[2024-05-13] MEDS ORDERED: MELATONIN 3 MG TABLET ONE (20:38)
[2024-05-13] MEDS ORDERED: ATORVASTATIN 10 MG TAB ONE (20:38)
[2024-05-13] MEDS ORDERED: ACETAMINOPHEN TAB 325 MG TAB ONE (20:39)
[2024-05-13] MEDS ORDERED: clonazePAM 0.5 MG TAB ONE (21:54)
[2024-05-14] MEDS ORDERED: ENTACAPONE 200 MG TAB ONE (00:01)
[2024-05-14] MEDS ORDERED: PANTOPRAZOLE 40 MG TABLET PO ONE (00:01)
[2024-05-14] MEDS ORDERED: TROSPIUM CHLORIDE 20 MG TABLET ONE (00:01)
[2024-05-14] MEDS ORDERED: CARBIDOPA-LEVODOPA ER 50-200MG 1 EACH TABLET.ER PO ONE (00:01)
[2024-05-14] MEDS ORDERED: RIVASTIGMINE 4.6MG/24HR PATCH TRANSDERM ONE (00:01)
[2024-05-14] MEDS ORDERED: LEVOTHYROXINE 50 MCG TAB ONE (06:45)
[2024-05-14] MEDS ORDERED: FUROSEMIDE 40 MG TAB ONE (08:48)
[2024-05-14] MEDS ORDERED: CHOLECALCIFEROL 25 MCG (1000 IU) TABLET ONE (08:49)
[2024-05-14] MEDS ORDERED: LOSARTAN 25 MG TAB ONE (08:49)
[2024-05-14] MEDS ORDERED: clonazePAM 0.5 MG TAB ONE ×2 (09:39→20:30)
[2024-05-14] MEDS ORDERED: ATORVASTATIN 10 MG TAB ONE (20:29)
[2024-05-14] MEDS ORDERED: HEPARIN SODIUM,PORCINE 5,000 UNIT/ML 1 ML VIAL ONE (20:30)
[2024-05-15] MEDS ORDERED: PANTOPRAZOLE 40 MG TABLET PO ONE (00:01)
[2024-05-15] MEDS ORDERED: TROSPIUM CHLORIDE 20 MG TABLET ONE (00:01)
[2024-05-15] MEDS ORDERED: VENLAFAXINE HCL ER 150 MG CAP PO ONE (00:01)
[2024-05-15] MEDS ORDERED: ENTACAPONE 200 MG TAB ONE (00:01)
[2024-05-15] MEDS ORDERED: CARBIDOPA-LEVODOPA ER 50-200MG 1 EACH TABLET.ER PO ONE (00:01)
[2024-05-15] MEDS ORDERED: RIVASTIGMINE 4.6MG/24HR PATCH TRANSDERM ONE (00:01)
[2024-05-15] MEDS ORDERED: CHOLECALCIFEROL 25 MCG (1000 IU) TABLET ONE (09:39)
[2024-05-15] MEDS ORDERED: LEVOTHYROXINE 50 MCG TAB ONE (09:41)
[2024-05-15] MEDS ORDERED: LOSARTAN 25 MG TAB ONE (09:41)
[2024-05-15] MEDS ORDERED: HEPARIN SODIUM,PORCINE 5,000 UNIT/ML 1 ML VIAL ONE ×2 (09:41→22:27)
[2024-05-15] MEDS ORDERED: FUROSEMIDE 40 MG TAB ONE (09:41)
[2024-05-15] MEDS ORDERED: ATORVASTATIN 10 MG TAB ONE (22:27)
[2024-05-16] MEDS ORDERED: CARBIDOPA-LEVODOPA ER 50-200MG 1 EACH TABLET.ER PO ONE (00:01)
[2024-05-16] MEDS ORDERED: ENTACAPONE 200 MG TAB ONE (00:01)
[2024-05-16] MEDS ORDERED: RIVASTIGMINE 4.6MG/24HR PATCH TRANSDERM ONE (00:01)
[2024-05-16] MEDS ORDERED: TROSPIUM CHLORIDE 20 MG TABLET ONE (00:01)
[2024-05-16] MEDS ORDERED: VENLAFAXINE HCL ER 150 MG CAP PO ONE (00:01)
[2024-05-16] MEDS ORDERED: PANTOPRAZOLE 40 MG TABLET PO ONE (08:49)
[2024-05-16] MEDS ORDERED: FUROSEMIDE 40 MG TAB ONE (08:49)
[2024-05-16] MEDS ORDERED: HEPARIN SODIUM,PORCINE 5,000 UNIT/ML 1 ML VIAL ONE (08:50)
[2024-05-16] MEDS ORDERED: CHOLECALCIFEROL 25 MCG (1000 IU) TABLET ONE (08:50)
[2024-05-16] MEDS ORDERED: LEVOTHYROXINE 50 MCG TAB ONE (08:50)
[2024-05-16] MEDS ORDERED: LOSARTAN 25 MG TAB ONE (08:50)
--- NOTE | 2024-06-01 13:53 | CT ---
EXAMINATION TYPE: CT brain wo con CT DLP: 1105 mGycm, Automated exposure control for dose reduction was used. DATE OF EXAM: 05/11/2024 8:02 PM COMPARISON: None. CLINICAL INDICATION: Altered mental status. Site ID [facility] Patient Leighann Walters ID [id number] TECHNIQUE: Brain: Axial CT images of the brain were obtained with coronal and sagittal reformats created and rev iewed. Contrast used: None. Oral contrast used: None. FINDINGS: Brain: Extra-axial spaces: No abnormal extra-axial fluid collections. Ventricular system: Within normal limits Cerebral parenchyma: No acute intraparenchymal hemorrhage or mass effect. The bardales-white junction is well differentiated. Scattered hypoattenuating areas are seen within the white matter. Cerebellum: Unremarkable. Mass effect: No evidence of midline shift. Intracranial vasculature: Atherosclerotic calcifications of the intracranial vessels. Soft tissues: Normal. Calvarium/osseous structures: No depressed skull fracture. Paranasal sinuses and mastoid air cells: Mild scattered paranasal sinus disease. Visualized orbits: Orbital contents are intact. IMPRESSION: 1. No acute intracranial process. 2. Nonspecific white matter changes, likely secondary to chronic small vessel ischemic disease.
--- NOTE | 2024-06-13 08:42 | XR ---
EXAMINATION TYPE: XR chest 2V DATE OF EXAM: 05/11/2024 7:18 PM CLINICAL INDICATION: Altered mental status. Site ID [facility] Leighann Rubin ID [id number] COMPARISON: None are available due to PACS downtime. TECHNIQUE: XR chest 2V Frontal and lateral views of the chest. FINDINGS: Lungs/Pleura: There is no evidence of pleural effusion, focal consolidation, or pneumothorax. Pulmonary vascularity: Unremarkable. Heart/mediastinum: Cardiomediastinal silhouette is unremarkable. Musculoskeletal: No acute osseous pathology. IMPRESSION: No acute cardiopulmonary disease/process.
== END 2024-05-16 14:56 | DRG 57 ==
LOC: 4SSUR 21:31
PROVIDERS: ADMIT Internal Medicine; ATTEND Internal Medicine
DX: G20.A1 Parkinson's disease without dyskinesia, without mention of fluctuations (principal); F02.C0 Dementia in other diseases classified elsewhere, severe, without behavioral disturbance, psychotic disturbance, mood disturbance, and anxiety; Z79.890 Hormone replacement therapy; Z79.899 Other long term (current) drug therapy; Z79.2 Long term (current) use of antibiotics
CPT/HCPCS: 70450; 71046; 93005; 99285

== ENCOUNTER 2024-06-30 19:54 | Emergency (ER) | payer MEDICARE ==
[2024-06-30 20:02] VITALS: BP 109/65
--- NOTE | 2024-06-30 20:22 | ED ---
Fall HPI - General Chief Complaint: Fall Stated Complaint: Fall Time Seen by Provider: 06/30/24 20:04 Source: patient, RN notes reviewed, old records reviewed Mode of arrival: EMS Limitations: no limitations - History of Present Illness Initial Comments: This is a 78-year-old of a poor historian found after a fall with a laceration above the left eye patient did take a head injury. No blood thinners MD Complaint: fall -: hour(s) Fall From: standing When Fall Occurred: 1-3 hours [employer]ING [employer] Fall Witnessed: no Place Fall Occurred: home Loss of Consciousness: none Prolonged Down Time?: no Symptoms Prior to Fall: none Location: head, face Severity: moderate Severity scale (1-10): 3 Quality: sharp Context: tripped/slipped Associated Symptoms: denies, headache - Related Data Home Medications Medication Instructions Recorded Confirmed Carbidopa/Levodopa [Sinemet 25-100 1 tab PO QID@09,13,17,21 01/04/19 04/18/23 mg] Levothyroxine Sodium [Synthroid] 50 mcg PO DAILY 01/04/19 04/18/23 Rosuvastatin Calcium [Crestor] 5 mg PO MOWEFR 01/04/19 04/18/23 Cholecalciferol [Vitamin D3 (25 50 mcg PO BID 06/23/22 04/18/23 Mcg = 1000 Iu)] Entacapone [Comtan] 200 mg PO DAILY 04/18/23 04/18/23 Furosemide [Lasix] 40 mg PO DIRECTED 04/18/23 04/18/23 Mirabegron [Myrbetriq] 50 mg PO HS 04/18/23 04/18/23 Venlafaxine HCl [Effexor] 37.5 mg PO DAILY 04/18/23 04/18/23 Previous Rx's Medication Instructions Recorded Cyanocobalamin [Vitamin B-12 1,000 mcg IM DAILY #3 each 04/21/23 Injection] Losartan [Cozaar] 50 mg PO DAILY #0 tab 04/21/23 Pantoprazole [Protonix] 40 mg PO DAILY tab 04/21/23 Potassium Chloride ER [K-Dur 20] 20 meq PO DAILY #30 tab 04/21/23 Nitrofurantoin Monohyd/M-Cryst 100 mg PO Q12HR #14 cap 04/06/24 [Macrobid] Allergies Allergy/AdvReac Type Severity Reaction Status Date / Time cheese AdvReac Abdominal Verified 06/30/24 20:02 Pain Review of Systems ROS Statement: Those systems with pertinent positive or pertinent negative responses have been documented in the HPI. ROS Other: All systems not noted in ROS Statement are negative. Past Medical History Past Medical History: Dementia, Hyperlipidemia, Neurologic Disorder, Osteoarthritis (OA), Thyroid Disorder Additional Past Medical History / Comment(s): Parkinson's Disease History of Any Multi-Drug Resistant Organisms: None Reported Past Surgical History: Joint Replacement, Orthopedic Surgery, Tubal Ligation Additional Past Surgical History / Comment(s): left hip replaced, right total hip arthroplasty anterior approach 01/09/2019, deviated septum repaired, right CTS Past Anesthesia/Blood Transfusion Reactions: No Reported Reaction Past Psychological History: No Psychological Hx Reported Smoking Status: Never smoker Past Alcohol Use History: None Reported Past Drug Use History: None Reported - Past Family History Sister(s) Family Medical History: Cancer Additional Family Medical History / Comment(s): Sister. is alive at age 84 and is a survivor of breast cancer. Mother Family Medical History: Cancer, Deep Vein Thrombosis (DVT), Pulmonary Embolus Additional Family Medical History / Comment(s): Mother at age 82 from uterine cancer with metastatic disease to the lungs. Brother(s) Additional Family Medical History / Comment(s): Patient has one brother age 80 with fibromyalgia, osteoarthritis and macular degeneration. Patient does not have any children. General Exam General appearance: alert, in no apparent distress Head exam: Present: normocephalic, normal inspection. Absent: atraumatic (Facial laceration) Eye exam: Present: normal appearance, PERRL, EOMI. Absent: scleral icterus, conjunctival injection, periorbital swelling ENT exam: Present: normal exam, mucous membranes moist Neck exam: Present: normal inspection. Absent: tenderness, meningismus, lymphadenopathy Respiratory exam: Present: normal lung sounds bilaterally. Absent: respiratory distress, wheezes, rales, rhonchi, stridor Cardiovascular Exam: Present: regular rate, normal rhythm, normal heart sounds. Absent: systolic murmur, diastolic murmur, rubs, gallop, clicks GI/Abdominal exam: Present: soft, normal bowel sounds. Absent: distended, tenderness, guarding, rebound, rigid Extremities exam: Present: normal inspection, full ROM, normal capillary refill. Absent: tenderness, pedal edema, joint swelling, calf tenderness Back exam: Present: normal inspection Neurological exam: Present: alert, oriented X3, CN II-XII intact Psychiatric exam: Present: normal affect, normal mood Skin exam: Present: warm, dry, intact, normal color. Absent: rash Course Vital Signs 06/30/24 19:58 Pulse Rate 87 Respiratory 18 Rate Blood Pressure 109/65 O2 Sat by Pulse 95 Oximetry - Reevaluation(s) Reevaluation #1: 06/30/24 20:47 Medical records reviewed Reevaluation #2: 06/30/24 20:47 Patient symptoms unchanged Reevaluation #3: 06/30/24 20:47 Patient informed of results and questions answered Reevaluation #4: Was pt. sent in by a medical professional or institution ([facility]ITLIN Quijano, VACUUM PAN OPERATOR, urgent care, hospital, or snf...) When possible be specific @ -no Did you speak to anyone other than the patient for history (EMS, parent, family, police, friend...)? What history was obtained from this source @ -no Did you review nursing and triage notes (agree or disagree)? Why? @ -agree Are old charts reviewed (outside hosp., previous admission, EMS record, old EKG, old radiological studies, urgent care reports/EKG's, snf records)? Report findings @ -yes Differential Diagnosis (chest pain, altered mental status, abdominal pain women, abdominal pain men, vaginal bleeding, weakness, fever, dyspnea, syncope, headache, dizziness, GI bleed, back pain, seizure, CVA, palpatations, mental health, musculoskeletal)? @ -prior EKG interpreted by me (3pts min.). @ -yes X-rays interpreted by me (1pt min.). @ -yes negative for acute disease CT interpreted by me (1pt min.). @ -no U/S interpreted by me (1pt. min.). @ -no What testing was considered but not performed or refused? (CT, X-rays, U/S, labs)? Why? @ -none What meds were considered but not given or refused? Why? @ -none Did you discuss the management of the patient with other professionals (professionals i.e. , [facility], VACUUM PAN OPERATOR, lab, RT, psych nurse, socially responsible investment adviser, fish processing supervisor, teacher, morals squad police officer, case investigator)? Give summary @ -no Was smoking cessation discussed for >3mins.? @ -no Was critical care preformed (if so, how long)? @ -no Were there social determinants of health that impacted care today? How? (Homelessness, low income, unemployed, alcoholism, drug addiction, transportation, low edu. Level, literacy, decrease access to med. care, assisted, rehab)? @ -none Was there de-escalation of care discussed even if they declined (Discuss DNR or withdrawal of care, Hospice)? DNR status @ -no What co-morbidities impacted this encounter? (DM, HTN, Smoking, COPD, CAD, Cancer, CVA, ARF, Chemo, Hep., AIDS, mental health diagnosis, sleep apnea, morbid obesity)? @ -none Was patient admitted / discharged? Hospital course, mention meds given and route, prescriptions, significant lab abnormalities, going to OR and other pertinent info. @ - Undiagnosed new problem with uncertain prognosis? @ -no Drug Therapy requiring intensive monitoring for toxicity (Heparin, Nitro, Insulin, Cardizem)? @ -no Were any procedures done? @ -no Diagnosis/symptom? @ - Acute, or Chronic, or Acute on Chronic? @ -Acute Uncomplicated (without systemic symptoms) or Complicated (systemic symptoms)? @ -Complicated Side effects of treatment? @ -no Exacerbation, Progression, or Severe Exacerbation? @ -exacerbation Poses a threat to life or bodily function? How? (Chest pain, [place], [place], pneumonia, PE, COPD, DKA, ARF, appy, cholecystitis, CVA, Diverticulitis, Homicidal, Suicidal, threat to staff... and all critical care pts) @ -yes Medical Decision Making - Medical Decision Making 78 female to the ER after a fall fall from standing with head injury. Facial laceration no acute traumatic injury noted otherwise. Lacerations repaired patient can be discharged home - Radiology Data Radiology results: report reviewed (CT brain C-spine x-rays negative for traumatic injury), image reviewed Disposition Clinical Impression: Fall, Head injury, Laceration of forehead Disposition: HOME SELF-CARE Condition: Good Instructions (If sedation given, give patient instructions): Fall Prevention for Older Adults (ED), Care For Your Stitches (ED) Is patient prescribed a controlled substance at d/c from ED?: No Referrals: Chris Moreau MD [Primary Care Provider] - 1-2 days Time of Disposition: 21:00
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
[2024-06-30 22:56] VITALS: PULSE 97; RESP 17
== END 2024-06-30 22:58 | disposition home or self-care (01) ==
LOC: EC 19:54
CPT/HCPCS: 70450; 70486; 71045; 72125; 72170; 99284